=== PATIENT | female | born 1950 | race Caucasian/White ===

== ENCOUNTER 2023-03-20 18:36 | Inpatient (IN) ==
--- NOTE | 2023-03-20 19:10 | Emergency Department Note ---
Impression & Plan Atrial flutter with rapid ventricular response, Palpitations ED Provider Note NAME: KENYA MAN AGE: 73 SEX: F : 1950 ARRIVES VIA: Walk-In INFORMANT: Patient ED PROVIDER(S): Jamie Cardozo DO CHIEF COMPLAINT: palpitations HPI: Patient is a 73-year-old female who presents ER for palpitations. Started at 1 PM. She denies any chest pain or shortness of breath. No nausea vomiting or diarrhea. She notes she does feel very anxious. She had this once or twice before. She is not sure whether she has a history of A-fib or SVT. She follows with Dr. Delacruz from [facility] cardiology. ADDITIONAL HISTORY OBTAINED: Per HPI Chronic Medical/Social Conditions Affecting Care: Per HPI PAST MEDICAL HISTORY:See Below PAST SURGICAL HISTORY:See Below FAMILY HISTORY:See Below SOCIAL HISTORY:See Below HOME MEDICATIONS:See Below ALLERGIES:See Below VITALS:See Below PHYSICAL EXAMINATION: GENERAL: Sitting up in bed, alert, well appearing, well nourished, no distress, non-toxic EYE EXAM: normal conjunctiva. OROPHARYNX: mucous membranes are moist NECK: supple, no nuchal rigidity, no adenopathy, non-tender LUNGS: Clear to auscultation. Normal chest wall mechanics HEART: Tachycardic, S1 normal and S2 normal ABDOMEN: abdomen soft, non-tender, normo-active bowel sounds, no masses, no rebound or guarding. UPPER EXTREMITIES: upper extremities are grossly normal. LOWER EXTREMITIES: No pitting edema. NEURO EXAM: Normal sensorium, cranial nerves II-XII grossly intact, normal speech, no gross weakness of arms, no gross weakness of legs. MEDICAL DECISION MAKING: Patient is a 73-year-old female with a past medical history of SVT/A-fib who presents the ER for palpitations. IV was established and blood work was obtained. Labs show no significant leukocytosis or anemia. BMP with creatinine 1.2. LFTs bilirubin was unremarkable. Troponin was mildly elevated at 17. Lipase was normal. Initial EKG was felt to be atrial flutter. She was given Lopressor x2 and heart rate trended down and eventually converted to a sinus rhythm. Discussed the case with the hospitalist for further evaluation management treatment. External Records Reviewed: External records reviewed from [facility] which show A-fib and SVT Consults/Care Managements Discussions: Per MDM Triage Nursing notes reviewed. Limited review of prior medical records performed Vital Signs: reviewed and remarkable for tachy Differential diagnosis: Cardiac ischemia, aortic dissection, pulmonary embolism, pneumothorax, pneumonia, pericarditis, myocarditis, esophageal rupture, GERD, cholecystitis, pancreatitis, musculoskeletal, as well as other pathologies. ER treatment provided: See below Diagnostics interpreted by me include EKG and cardiac monitoring as listed below: -Cardiac Monitoring: An order was placed for continuous cardiac monitoring. The monitor shows a rate of 151 with Afib rhythm. -ECG: Atrial flutter RVR 158 Normal axis No PVCs QTc 505 EKG #2 Sinus rhythm rate of 75 Normal axis No PVCs QTc 4 3 -Laboratory studies:Interpreted by me as stated above in MDM and shown below. Imaging studies: Xrays: As interpreted by me: Portable AP upright 1 view of the chest shows no focal infiltrate CTs show: none Procedures:none Critical Care: I have personally spent 31 minutes of critical care time in the direct management of this patient. This includes bedside care, interpretation of diagnostic studies, and testing, discussion with consultants, patient, and family members, and other required patient management activities. This 31 minutes is in excess of all separately billable procedures. Past Med/Surg History Social History Smoking Status: Never smoker Feels Safe at Home: Yes Allergies Allergies Allergy/AdvReac Type Severity Reaction Status Date / Time No Known Allergies Allergy Unverified 03/20/23 20:02 Home Meds Home Medications Medication Instructions Recorded Confirmed allopurinol 300 mg tablet 300 mg PO QAM 03/20/23 03/20/23 aspirin 81 mg tablet,delayed 81 mg PO DAILY 03/20/23 03/20/23 release atorvastatin 80 mg tablet 80 mg PO QAM 03/20/23 03/20/23 cholecalciferol (vitamin D3) 50 50 mcg PO DAILY 03/20/23 03/20/23 mcg (2,000 unit) tablet lisinopril 10 mg tablet 10 mg PO QAM 03/20/23 03/20/23 metoprolol succinate 50 mg 25 mg PO BID 03/20/23 03/20/23 tablet,extended release 24 hr Results & Data (ED) Vital Signs Vital Signs - 24 hr 03/20/23 18:44 03/20/23 19:06 03/20/23 19:11 Temperature 36.1 C L Temperature Source Temporal Artery Scan Pulse Rate 150 H 144 H 143 H Pulse Rate from SpO2 Sensor Respiratory Rate 18 18 Respiratory Effort / Characteristics Non-Labored Respiratory Depth Normal Respiratory Pattern Regular Blood Pressure 146/84 H 159/108 H Blood Pressure Mean 104 Pulse Oximetry 99 97 Oxygen Delivery Method Room Air Room Air Sepsis Recent Fever Within 48 Hours No Sepsis New/Unexplained Change in Mental Status N/A Sepsis Action Taken by Nursing No Action Required 03/20/23 19:36 03/20/23 19:06 03/20/23 19:06 Temperature Temperature Source Pulse Rate 129 H 142 H 144 H Pulse Rate from SpO2 Sensor 142 H Respiratory Rate 22 Respiratory Effort / Characteristics Respiratory Depth Respiratory Pattern Blood Pressure 129/92 Blood Pressure Mean Pulse Oximetry 98 Oxygen Delivery Method Sepsis Recent Fever Within 48 Hours Sepsis New/Unexplained Change in Mental Status Sepsis Action Taken by Nursing 03/20/23 19:12 03/20/23 19:12 03/20/23 19:30 Temperature Temperature Source Pulse Rate 144 H Pulse Rate from SpO2 Sensor 143 H Respiratory Rate 22 Respiratory Effort / Characteristics Respiratory Depth Respiratory Pattern Blood Pressure 142/93 H 129/92 Blood Pressure Mean 111 99 Pulse Oximetry 98 Oxygen Delivery Method Sepsis Recent Fever Within 48 Hours Sepsis New/Unexplained Change in Mental Status Sepsis Action Taken by Nursing 03/20/23 19:30 03/20/23 19:48 03/20/23 19:48 Temperature Temperature Source Pulse Rate 130 H 79 74 Pulse Rate from SpO2 Sensor 132 H 77 Respiratory Rate 19 20 19 Respiratory Effort / Characteristics Respiratory Depth Respiratory Pattern Blood Pressure 150/85 H Blood Pressure Mean 115 Pulse Oximetry 99 97 Oxygen Delivery Method Sepsis Recent Fever Within 48 Hours Sepsis New/Unexplained Change in Mental Status Sepsis Action Taken by Nursing 03/20/23 20:00 03/20/23 20:30 03/20/23 22:00 Temperature Temperature Source Pulse Rate 77 67 Pulse Rate from SpO2 Sensor 77 67 Respiratory Rate 24 17 Respiratory Effort / Characteristics Respiratory Depth Respiratory Pattern Blood Pressure 148/79 H 137/79 Blood Pressure Mean 102 98 Pulse Oximetry 98 97 Oxygen Delivery Method Room Air Sepsis Recent Fever Within 48 Hours Sepsis New/Unexplained Change in Mental Status Sepsis Action Taken by Nursing 03/20/23 21:00 03/20/23 21:00 03/20/23 22:09 Temperature Temperature Source Pulse Rate 65 74 Pulse Rate from SpO2 Sensor 65 Respiratory Rate 17 17 Respiratory Effort / Characteristics Respiratory Depth Respiratory Pattern Blood Pressure 140/82 123/90 Blood Pressure Mean 99 101 Pulse Oximetry 99 97 Oxygen Delivery Method Sepsis Recent Fever Within 48 Hours Sepsis New/Unexplained Change in Mental Status Sepsis Action Taken by Nursing 03/20/23 22:30 03/20/23 23:13 Temperature Temperature Source Pulse Rate 65 58 L Pulse Rate from SpO2 Sensor 62 Respiratory Rate 18 Respiratory Effort / Characteristics Respiratory Depth Respiratory Pattern Blood Pressure 124/73 Blood Pressure Mean 90 Pulse Oximetry 97 Oxygen Delivery Method Sepsis Recent Fever Within 48 Hours Sepsis New/Unexplained Change in Mental Status Sepsis Action Taken by Nursing Laboratory Data 03/20/23 19:17 03/20/23 19:17 Lab Results 03/20/23 03/20/23 03/20/23 Range/Units 19:17 19:17 21:39 WBC 9.83 (4.8-10.8) K/ul RBC 4.22 (4.20-5.40) M/uL Hgb 13.5 (12.0-16.0) g/dl Hct 40.8 (37.0-47.0) % MCV 96.7 (80.0-100.0) fL MCH 32.0 (25.0-34.0) pg MCHC 33.1 (32.0-36.0) g/dL RDW Std Deviation 48.3 H (36.4-46.3) fL RDW Coeff of Rizwan 13.6 (11.5-14.5) % Plt Count 226 (130-400) K/uL MPV 11.5 (9.4-12.4) fL Immature Gran % (Auto) 0.2 % Neut % (Auto) 67.9 % Lymph % (Auto) 24.1 % [place] % (Auto) 5.8 % Eos % (Auto) 1.3 % Baso % (Auto) 0.7 % Neut # (Auto) 6.67 H (1.40-6.50) K/uL Lymph # (Auto) 2.37 (1.20-3.40) K/uL [place] # (Auto) 0.57 (0.11-0.59) K/uL Eos # (Auto) 0.13 (0.00-0.50) K/uL Baso # (Auto) 0.07 (0.00-0.20) K/uL Immature Gran # (Auto) 0.02 (0.01-0.20) K/uL Sodium 137 (136-145) mmol/L Potassium 4.1 (3.5-5.1) mmol/L Chloride 105 (98-107) mmol/L Carbon Dioxide 23 (21-32) mmol/L Anion Gap 9 (3-11) BUN 29 H (6-23) mg/dl Creatinine 1.28 H (0.6-1.2) mg/dl Est Cr Clr Drug Dosing 39.5 ml/min Est GFR ( Amer) 47.7 ml/min Est GFR (Non-Af Amer) 41.1 ml/min BUN/Creatinine Ratio 22.7 H (10-20) Glucose 164 H (70-99(Fasting)) mg/dl Calcium 10.0 (8.6-10.3) mg/dl Total Bilirubin 0.5 (0.2-1.0) mg/dl AST 26 (13-39) U/L ALT 27 (7-52) U/L Alkaline Phosphatase 74 (34-104) U/L Troponin I High Sens 16.7 H 29.2 H D (0-14) pg/ml Total Protein 8.4 H (6.0-8.3) gm/dl Albumin 4.7 (3.4-5.0) gm/dl Globulin 3.7 (2.5-4.0) gm/dl Albumin/Globulin Ratio 1.3 (0.9-2) Lipase 28 (11-82) U/L Administered Medications Metoprolol Tartrate (Metoprolol Tartrate 1 Mg/Ml Vial) 5 mg IV Q5M PRN PRN Reason: Tachycardia Stop: 04/19/23 19:04 Last Admin: 03/20/23 19:36 Dose: 5 mg Documented By: Admin: 03/20/23 19:11 Dose: 5 mg Documented By: BS Discontinued Medications Acetaminophen (Acetaminophen 325 Mg Tab) Confirm Administered Dose 650 mg .ROUTE .STK-MED ONE Stop: 03/20/23 22:16 Last Admin: 03/20/23 22:36 Dose: 650 mg Documented By: BS Acetaminophen (Acetaminophen 325 Mg Tab) 650 mg PO NOW STA Stop: 03/20/23 22:24 Last Admin: 03/20/23 22:49 Dose: Not Given Documented By: BS Metoprolol Succinate (Metoprolol Succ 25mg Ext Rel Tab) 25 mg PO NOW STA Stop: 03/20/23 21:24 Last Admin: 03/20/23 22:36 Dose: 25 mg Documented By: BS Imaging Data Radiologist's Impression: Chest X-Ray 03/20/23 18:47 XR chest 1V portable HISTORY: 73 years-old Female Chest pain, nonspecific COMPARISON: None TECHNIQUE: AP view of the chest FINDINGS: Cardiomediastinal and hilar silhouettes are within normal limits. No pneumothorax, pleural effusion, airspace consolidation or pulmonary edema. Bones appear grossly intact. The shoulder rotator cuff calcific tendinosis. IMPRESSION: No acute process. ACT 112: Negative or not required by law. The above report was generated using voice recognition software. It may contain grammatical, syntax or spelling errors. Electronically signed by: Geo Rider M.D. 03/20/2023 7:44 PM Discharge Plan Visit Data Chief Complaint: Tachycardia Stated Complaint: RACING HEART ED Provider: Jamie Cardozo Discharge Problem: Atrial flutter with rapid ventricular response, Palpitations Forms Stand Alone Forms: My [facility] Prescriptions Prescriptions: No Action atorvastatin 80 mg tablet 80 mg PO QAM metoprolol succinate 50 mg tablet extended release 24 hr 25 mg PO BID aspirin 81 mg Tablet,Delayed Release (Dr/Ec) 81 mg PO DAILY lisinopril 10 mg tablet 10 mg PO QAM allopurinol 300 mg tablet 300 mg PO QAM cholecalciferol (vitamin D3) 50 mcg (2,000 unit) Tablet 50 mcg PO DAILY Referrals Referrals: PCP,NO [Physician] -
[2023-03-20] MEDS: METOPROLOL TARTRATE 1 MG/ML VIAL IV PRN ×2 (19:11→19:36)
[2023-03-20 19:39] LABS: Basophils # (auto) 0.07 K/uL (0.00-0.20); Basophils % (auto) 0.7 %; Eosinophils # (auto) 0.13 K/uL (0.00-0.50); Eosinophils % (auto) 1.3 %; Hematocrit (blood only) 40.8 % (37.0-47.0); Hemoglobin 13.5 g/dl (12.0-16.0); Immature Granulocytes # (auto) 0.02 K/uL (0.01-0.20); Immature Granulocytes % (auto) 0.2 %; Lymphocytes # (auto) 2.37 K/uL (1.20-3.40); Lymphocytes % (auto) 24.1 %; Mean Corpuscular Hgb Conc 33.1 g/dL (32.0-36.0); Mean Corpuscular Volume 96.7 fL (80.0-100.0); Mean Platelet Volume 11.5 fL (9.4-12.4); Monocytes # (auto) 0.57 K/uL (0.11-0.59); Monocytes % (auto) 5.8 %; Neutrophils # (auto) 6.67 K/uL (1.40-6.50); Neutrophils % (auto) 67.9 %; Platelet Count 226 K/uL (130-400); RDW Coefficient of Variation 13.6 % (11.5-14.5); RDW Standard Deviation 48.3 fL (36.4-46.3); Red Blood Count 4.22 M/uL (4.20-5.40); White Blood Count 9.83 K/ul (4.8-10.8)
--- NOTE | 2023-03-20 19:46 | XRay Report ---
XR chest 1V portable HISTORY: 73 years-old Female Chest pain, nonspecific COMPARISON: None TECHNIQUE: AP view of the chest FINDINGS: Cardiomediastinal and hilar silhouettes are within normal limits. No pneumothorax, pleural effusion, airspace consolidation or pulmonary edema. Bones appear grossly intact. The shoulder rotator cuff [place] cific tendinosis. IMPRESSION: No acute process. ACT 112: Negative or not required by law. The above report was generated using voice recognition software. It may contain grammatical, syntax o r spelling errors. Electronically signed by: Geo Rider M.D. 03/20/2023 7:44 PM
[2023-03-20 19:49] LABS: Albumin Globulin Ratio 1.3 (0.9-2); Albumin Level 4.7 gm/dl (3.4-5.0); BUN Creatinine Ratio 22.7 (10-20); Bilirubin,Total 0.5 mg/dl (0.2-1.0); Creatinine Clr Calc Pharmacy 39.5 ml/min; Est GFR (African American) 47.7 ml/min; Est GFR (Non-African American) 41.1 ml/min; Globulin 3.7 gm/dl (2.5-4.0); Potassium 4.1 mmol/L (3.5-5.1); Total Protein 8.4 gm/dl (6.0-8.3)
[2023-03-20 19:55] LABS: Troponin I High Sensitivity 16.7 pg/ml (0-14)
[2023-03-20] MEDS ORDERED: METOPROLOL SUCC 50MG EXT REL TAB PO STA (21:15)
[2023-03-20] MEDS ORDERED: METOPROLOL SUCC 25MG EXT REL TAB PO STA (21:23)
--- NOTE | 2023-03-20 21:23 | History & Physical Report ---
Date of Service March 20, 2023 Assessment & Plan (1) SVT (supraventricular tachycardia): Plan: 73-year-old female with past med hiostory significant for type 2 diabetes, idiopathic chronic gout, hyperlipidemia, paroxysmal atrial fibrillation, SVT, hypertension, chronic kidney stage III, vitamin D deficiency, chronic anxiety, presents with palpitations and found to be in SVT. SVT History of SVT Resolved with IV Lopressor Continue home p.o. Vidya Had an episode of A-fib in April 2021 as per cardiology notes We will monitor on telemetry We will consult cardiology in a.m. Mild elevation of troponin Mostly demand ischemia from above We will follow serial cardiac enzymes and echo History of diabetes Not on medications We will follow HbA1c levels and blood sugars Hyperlipidemia On statin. History of gout On allopurinol Hypertension On lisinopril and Toprol We will monitor CKD stage III Presented with creatinine 1.2 seems to be around baseline We will follow labs DVT prophylax SCDs for now Disposition admit to telemetry Full code History of Present Illness Chief Complaint: Palpitations Primary Care Provider: Jose Michael MD 73-year-old female with past med history significant for type 2 diabetes, idiopathic chronic gout, hyperlipidemia, paroxysmal atrial fibrillation, SVT, hypertension, chronic kidney stage III, vitamin D deficiency, chronic anxiety, presents with palpitations and found to be in SVT. Patient states since 2 PM she was having this palpitations and were not getting better . She was also feeling anxious. But no chest pain or shortness of breath noted. No dizziness. No nausea or vomiting. No sweating. Says she has some headache because she did not eat from afternoon. Vision is okay. No runny nose or sore throat. No cough. No fevers. Normal bowel and bladder movements. Currently resting comfortably. Past medical history. As mentioned above Past surgical history. None as per [facility] Social history. . No smoking. No alcohol. No drug use. Family history. Mother had diabetes. Heart disorder. Father had heart disorder. Allergies Allergy/AdvReac Type Severity Reaction Status Date / Time No Known Allergies Allergy Unverified 03/20/23 20:02 Home Medications Medication Instructions Recorded Confirmed Type allopurinol 300 mg tablet 300 mg PO QAM 03/20/23 03/20/23 History aspirin 81 mg tablet,delayed 81 mg PO DAILY 03/20/23 03/20/23 History release atorvastatin 80 mg tablet 80 mg PO QAM 03/20/23 03/20/23 History cholecalciferol (vitamin D3) 50 50 mcg PO DAILY 03/20/23 03/20/23 History mcg (2,000 unit) tablet lisinopril 10 mg tablet 10 mg PO QAM 03/20/23 03/20/23 History metoprolol succinate 50 mg 25 mg PO BID 03/20/23 03/20/23 History tablet,extended release 24 hr Past Med/Surg History Social History Smoking Status: Never smoker Second Hand Exposure: No; Do You Dip or Chew Tobacco: No; Hx Alcohol Use: No Hx Substance Use: No Preferred Language: Gabonese Communication Ability: Effective [place] Man Required: No Beliefs That Will Affect Care: None Current Living Situation: Spouse Other Information That Helps Us Care for You: No Feels Safe at Home: Yes Safety Concerns: Feels Safe At This Time Assistive Devices: Glasses Review of Systems Review of Systems: All systems reviewed & are unremarkable except as noted in HPI & below Physical Exam Physical Exam: General- Not in distress Head- atraumatic Eyes- PERRL. ENT- oropharynx clear Neck- supple, no JVD. Lungs- clear to auscultation, no wheezing or crackles. Heart- regular rhythm; no murmur, no gallop. Abdomen- normal bowel sounds, soft, nontender, no distension. Extremities- no pretibial edema, no erythema seen. Neuro- alert, oriented x 3; PERRL, no facial palsy; no dysarthria; moves extremities. Skin- warm & dry Results & Data Results & Data Vital Signs (Past 12 Hours) Vital Signs Temp Pulse Resp BP Pulse Ox O2 Del Method 03/20/23 20:30 67 17 137/79 97 03/20/23 20:00 77 24 148/79 H 98 03/20/23 19:48 74 19 150/85 H 03/20/23 19:48 79 20 97 03/20/23 19:30 130 H 19 99 03/20/23 19:30 129/92 03/20/23 19:12 142/93 H 03/20/23 19:12 144 H 22 98 03/20/23 19:06 144 H 22 98 03/20/23 19:06 142 H 03/20/23 19:36 129 H 129/92 03/20/23 19:11 143 H 159/108 H 03/20/23 19:06 144 H 18 97 Room Air 03/20/23 18:44 36.1 C L 150 H 18 146/84 H 99 Room Air Diagnostic Findings Laboratory Results WBC 9.83 K/ul (4.8-10.8) 03/20/23 19:17 RBC 4.22 M/uL (4.20-5.40) 03/20/23 19:17 Hgb 13.5 g/dl (12.0-16.0) 03/20/23 19:17 Hct 40.8 % (37.0-47.0) 03/20/23 19:17 MCV 96.7 fL (80.0-100.0) 03/20/23 19:17 MCH 32.0 pg (25.0-34.0) 03/20/23 19:17 MCHC 33.1 g/dL (32.0-36.0) 03/20/23 19:17 RDW Std Deviation 48.3 fL (36.4-46.3) H 03/20/23 19:17 RDW Coeff of Rizwan 13.6 % (11.5-14.5) 03/20/23 19:17 Plt Count 226 K/uL (130-400) 03/20/23 19:17 MPV 11.5 fL (9.4-12.4) 03/20/23 19:17 Immature Gran % (Auto) 0.2 % 03/20/23 19:17 Neut % (Auto) 67.9 % 03/20/23 19:17 Lymph % (Auto) 24.1 % 03/20/23 19:17 [place] % (Auto) 5.8 % 03/20/23 19:17 Eos % (Auto) 1.3 % 03/20/23 19:17 Baso % (Auto) 0.7 % 03/20/23 19:17 Neut # (Auto) 6.67 K/uL (1.40-6.50) H 03/20/23 19:17 Lymph # (Auto) 2.37 K/uL (1.20-3.40) 03/20/23 19:17 [place] # (Auto) 0.57 K/uL (0.11-0.59) 03/20/23 19:17 Eos # (Auto) 0.13 K/uL (0.00-0.50) 03/20/23 19:17 Baso # (Auto) 0.07 K/uL (0.00-0.20) 03/20/23 19:17 Immature Gran # (Auto) 0.02 K/uL (0.01-0.20) 03/20/23 19:17 Sodium 137 mmol/L (136-145) 03/20/23 19:17 Potassium 4.1 mmol/L (3.5-5.1) 03/20/23 19:17 Chloride 105 mmol/L (98-107) 03/20/23 19:17 Carbon Dioxide 23 mmol/L (21-32) 03/20/23 19:17 Anion Gap 9 (3-11) 03/20/23 19:17 BUN 29 mg/dl (6-23) H 03/20/23 19:17 Creatinine 1.28 mg/dl (0.6-1.2) H 03/20/23 19:17 Est Cr Clr Drug Dosing 39.5 ml/min 03/20/23 19:17 Est GFR ( Amer) 47.7 ml/min 03/20/23 19:17 Est GFR (Non-Af Amer) 41.1 ml/min 03/20/23 19:17 BUN/Creatinine Ratio 22.7 (10-20) H 03/20/23 19:17 Glucose 164 mg/dl (70-99(Fasting)) H 03/20/23 19:17 Calcium 10.0 mg/dl (8.6-10.3) 03/20/23 19:17 Total Bilirubin 0.5 mg/dl (0.2-1.0) 03/20/23 19:17 AST 26 U/L (13-39) 03/20/23 19:17 ALT 27 U/L (7-52) 03/20/23 19:17 Alkaline Phosphatase 74 U/L (34-104) 03/20/23 19:17 Troponin I High Sens 16.7 pg/ml (0-14) H 03/20/23 19:17 Total Protein 8.4 gm/dl (6.0-8.3) H 03/20/23 19:17 Albumin 4.7 gm/dl (3.4-5.0) 03/20/23 19:17 Globulin 3.7 gm/dl (2.5-4.0) 03/20/23 19:17 Albumin/Globulin Ratio 1.3 (0.9-2) 03/20/23 19:17 Lipase 28 U/L (11-82) 03/20/23 19:17 Impressions Chest X-Ray 03/20/23 18:47 XR chest 1V portable HISTORY: 73 years-old Female Chest pain, nonspecific COMPARISON: None TECHNIQUE: AP view of the chest FINDINGS: Cardiomediastinal and hilar silhouettes are within normal limits. No pneumothorax, pleural effusion, airspace consolidation or pulmonary edema. Bones appear grossly intact. The shoulder rotator cuff calcific tendinosis. IMPRESSION: No acute process. ACT 112: Negative or not required by law. The above report was generated using voice recognition software. It may contain grammatical, syntax or spelling errors. Electronically signed by: Geo Rider M.D. 03/20/2023 7:44 PM ECG Additional Comments: ECG. SVT rate of 158. Nonspecific ST abnormalities. Code Status & VTE Plan VTE Prophylaxis Plan VTE Prophylaxis will be ordered: Yes
[2023-03-20] MEDS ORDERED: ACETAMINOPHEN 325 MG TAB ONE (22:15)
[2023-03-20] MEDS ORDERED: ACETAMINOPHEN 325 MG TAB PO STA (22:23)
[2023-03-21] MEDS ORDERED: CARBOHYDRATES FOR HYPOGLYCEMIA PO PRN (00:14)
[2023-03-21] MEDS ORDERED: GLUCAGON FOR INJ 1 MG VIAL SQ PRN (00:14)
[2023-03-21] MEDS ORDERED: NITROGLYCERIN SL 0.4 MG/TAB TAB SL PRN (00:14)
[2023-03-21] MEDS ORDERED: SODIUM CHLORIDE 0.9% 1,000 ML IV SCH (00:14)
[2023-03-21] MEDS ORDERED: GLUCOSE 10 TAB/TUBE PO PRN (00:14)
[2023-03-21] MEDS ORDERED: POLYETHYLENE (MIRALAX) 17 GM PACK PO PRN (00:14)
[2023-03-21] MEDS ORDERED: METOPROLOL TARTRATE 1 MG/ML VIAL IV PRN (00:14)
[2023-03-21] MEDS ORDERED: ACETAMINOPHEN 325 MG TAB PO PRN (00:14)
[2023-03-21] MEDS ORDERED: DEXTROSE 50% 50 ML SYRINGE IV PRN (00:14)
[2023-03-21] MEDS ORDERED: GLUCOSE 40% GEL 15 GM TUBE PO PRN (00:14)
[2023-03-21] MEDS ORDERED: INSULIN ASPART PER UNIT CHARGE SC SCH (06:00)
[2023-03-21 06:26] LABS: Basophils # (auto) 0.07 K/uL (0.00-0.20); Eosinophils # (auto) 0.38 K/uL (0.00-0.50); Eosinophils % (auto) 5.5 %; Hemoglobin 11.5 g/dl (12.0-16.0); Immature Granulocytes # (auto) 0.02 K/uL (0.01-0.20); Immature Granulocytes % (auto) 0.3 %; Lymphocytes # (auto) 2.55 K/uL (1.20-3.40); Lymphocytes % (auto) 36.9 %; Mean Corpuscular Hemoglobin 31.9 pg (25.0-34.0); Mean Corpuscular Hgb Conc 32.9 g/dL (32.0-36.0); Mean Corpuscular Volume 97.2 fL (80.0-100.0); Mean Platelet Volume 11.4 fL (9.4-12.4); Monocytes # (auto) 0.69 K/uL (0.11-0.59); Neutrophils % (auto) 46.3 %; Platelet Count 200 K/uL (130-400); RDW Coefficient of Variation 13.5 % (11.5-14.5); White Blood Count 6.91 K/ul (4.8-10.8)
[2023-03-21 06:45] LABS: BUN Creatinine Ratio 26.6 (10-20); Calcium 8.8 mg/dl (8.6-10.3); Creatinine Clr Calc Pharmacy 53.9 ml/min; Est GFR (African American) 69.3 ml/min; Est GFR (Non-African American) 59.8 ml/min; Magnesium 2.1 mg/dl (1.7-2.4); Potassium 3.8 mmol/L (3.5-5.1)
[2023-03-21 06:54] LABS: Troponin I High Sensitivity 44.7 pg/ml (0-14)
--- NOTE | 2023-03-21 08:07 | Cardiology Consultation ---
Date of Consultation March 21, 2023 Assessment & Plan (1) Palpitations: (2) Atrial flutter with rapid ventricular response: Plan IMPRESSION: 73 year old female who presented to [facility] ED due to sustained palpitations. Found to be in Atrial flutter with RVR (rates in the 160s)-- symptoms resolved with IV Lopressor. Metoprolol succinate increased to 50 mg BID (from 25 mg BID) HS trops mildly elevated. PLAN: -Agree with increase in beta shan dosage-- continue metoprolol succinate 50 mg twice daily. -Encouraged patient to ambulate in the hallway this morning. -[id number] 4 points (age 65-74, female, Hypertension, diabetes)-- Risk of stroke in relation to aflutter discussed in detail as well as bleeding risk with anticoagulation, patient agreeable to start Eliquis 5 mg BID. -Plan on outpatient ZIO monitor to assess PAF/Flutter burden and average heart rates. 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 -HS tropinin mildly elevated, likely due to demand/tachycardic rates. Low likelihood for ACS, Consider outpatient nuclear stress test to rule out ischemic cause. Continue aspirin and statin. -Blood pressures well controlled- continue Lisinopril 10 mg daily Case discussed with Dr. Dee. Will plan on follow up in our outpatient clinic in 4-6 weeks. Will have ZIO placed at discharge. Supervising Physician Co-Signing Physician Notes 73-year-old female admitted with recurrent palpitations. ECG demonstrating atrial flutter with transient atrial fibrillation overnight. Resting comfortably. Converted to sinus rhythm. Denies chest pain or heaviness. Mildly elevated high-sensitivity troponin. Echocardiogram without regional wall motion abnormality. PE: VSS. General: NAD, awake alert orient x3. Heart: Regular rhythm, normal S1-S2. No murmur. Lungs: Clear bilateral, no rales, rhonchi, wheeze. Extremities: No edema. A/P: Agree with above WARDROBE ASSISTANT history, physical exam, assessment and plan. Titrate metoprolol to 50 mg twice daily. Patient agreeable to oral anticoagulation. Eliquis 5 mg twice daily ordered. Outpatient ZIO monitor to assess efficacy of higher dose of beta-shan ordered. Outpatient cardiology follow-up in 4 to 6 weeks. Recommend ischemic evaluation in the outpatient setting due to mildly elevated high-sensitivity troponin. No further inpatient cardiac testing or intervention. History of Present Illness Reason for Consultation: Palpitations Atrial flutter Requesting Physician: Cornelia hospitalben Attending Physician: Gianfranco Arredondo MD History of Present Illness 73-year-old female who initially presented to [facility] emergency department 03/20/2023 due to sustained palpitations. Initially felt to be in SVT. Given a dose of IV Lopressor with improvement in symptoms. EKG on 03/20/2023 at 18:58 revealed atrial flutter with rates in the 160s. Labs: Mild anemia with a hemoglobin of 11.5. Renal function stable. Potassium and magnesium within goal. High-sensitivity troponins mildly elevated (16.7>>29.2>>44.7) Echo: PENDING* Patient normally maintained on metoprolol succinate 25 mg twice daily-- incre ased this admission to 50 mg twice daily. Telemetry: NSR/SB 50-60s. AFIB ~1:04 am (03/21), AFlutter, 160s ~1700-1748pm (03/20) Upon entrance into the room patient resting in bed. , [place], at bedside. No return of palpitations/"fluttering" heart beats since yesterday evening. Denies any recent chest pain or shortness of breath. No lightheadedness or dizziness. No syncope. No orthopnea or PND. No lower extremity edema. No history of GIB or increased bleeding. Admits to significant anxiety at times. No recent change in medications. Eager for discharge. Of note, patient has [facility] insurance as well as [employer] for Rx assistance. Primary outpatient manager activities: Dr. Cespedes and Markell Mittal PA-C Past medical history: 1. Palpitations 1. Prior palpitations documented to occur in association with sinus rhythm, sensed atrial ectopy, and supraventricular tachycardia/atrial tachycardia -- outpatient metoprolol dose 25 mg BID 2. Paroxysmal atrial fibrillation on April 29, 2021, converting to sinus rhythm following IV diltiazem administration. Event occurring in association with recent musculoskeletal strain, after taking baclofen 1. [id number] 4 points (age 65-74, female, Hypertension, diabetes)-- not currently on AC 3. Suspected sleep apnea- declined eval in the past 4. Hypertension 5. Dyslipidemia 6. Family history of coronary heart disease in both of her parents. 7. Stage 3 chronic kidney disease. Followed by Nephrology. 8. Anxiety 9. Idiopathic chronic gout, follows with PCP 10. Grade II diastolic dysfunction Allergies Allergy/AdvReac Type Severity Reaction Status Date / Time No Known Allergies Allergy Unverified 03/20/23 20:02 Home Medications Medication Instructions Recorded Confirmed Type allopurinol 300 mg tablet 300 mg PO QAM 03/20/23 03/20/23 History aspirin 81 mg tablet,delayed 81 mg PO DAILY 03/20/23 03/20/23 History release atorvastatin 80 mg tablet 80 mg PO QAM 03/20/23 03/20/23 History cholecalciferol (vitamin D3) 50 50 mcg PO DAILY 03/20/23 03/20/23 History mcg (2,000 unit) tablet apixaban 5 mg tablet (Eliquis) 5 mg PO BID #60 tabs 03/21/23 Rx lisinopril 5 mg tablet (Zestril) 5 mg PO QAM #30 tabs 03/21/23 Rx metoprolol succinate 50 mg 50 mg PO BID #60 tabs 03/21/23 Rx tablet,extended release 24 hr Patient History Social History Smoking Status: Never smoker Second Hand Exposure: No; Do You Dip or Chew Tobacco: No; Hx Alcohol Use: No Hx Substance Use: No Preferred Language: Tristanian Communication Ability: Effective Analytics Director Required: No Beliefs That Will Affect Care: None Current Living Situation: Spouse Other Information That Helps Us Care for You: No Feels Safe at Home: Yes Safety Concerns: Feels Safe At This Time Assistive Devices: Glasses Review of Systems Review of Systems: All systems reviewed & are unremarkable except as noted in HPI & below Physical Exam Constitutional: WD/WN, vitals as above no acute distress Neck: normal visual inspection and trachea midline Respiratory: normal respiratory effort, lungs clear to auscultation Cardiovascular: RRR, no murmur, no edema Heart Sounds: normal S1 and normal S2; no murmur Vessels: no JVD Extremities: no edema Gastrointestinal (Abdomen): normal bowel sounds, soft, nontender, no hepatosplenomegaly Skin: no rashes, warm and dry Psychiatric: A+Ox3, euthymic affect Results & Data Vital Signs (Past 12 Hours) Vital Signs Temp Pulse Pulse Resp BP BP Pulse Ox 03/21/23 07:14 36.4 C L 57 L 20 137/76 97 03/21/23 03:26 36.5 C 82 16 151/69 H 91 03/21/23 02:08 54 L 03/21/23 00:55 130/79 03/21/23 00:15 36.6 C 76 18 182/97 H 98 03/20/23 23:13 58 L 03/20/23 22:30 65 18 124/73 97 03/20/23 22:09 74 17 123/90 97 03/20/23 21:00 65 17 99 03/20/23 21:00 140/82 03/20/23 22:00 03/20/23 20:30 67 17 137/79 97 O2 Del Method 03/21/23 07:14 Room Air 03/21/23 03:26 Room Air 03/21/23 02:08 03/21/23 00:55 03/21/23 00:15 Room Air 03/20/23 23:13 03/20/23 22:30 03/20/23 22:09 03/20/23 21:00 03/20/23 21:00 03/20/23 22:00 Room Air 03/20/23 20:30 Laboratory Results Cardiac Enzymes 03/20/23 03/20/23 03/21/23 Range/Units 19:17 21:39 05:24 AST 26 (13-39) U/L Troponin I High Sens 16.7 H 29.2 H D 44.7 H D (0-14) pg/ml CBC 03/20/23 03/21/23 Range/Units 19:17 05:24 WBC 9.83 6.91 (4.8-10.8) K/ul RBC 4.22 3.60 L (4.20-5.40) M/uL Hgb 13.5 11.5 L (12.0-16.0) g/dl Hct 40.8 35.0 L (37.0-47.0) % Plt Count 226 200 (130-400) K/uL Neut # (Auto) 6.67 H 3.20 (1.40-6.50) K/uL Lymph # (Auto) 2.37 2.55 (1.20-3.40) K/uL [place] # (Auto) 0.57 0.69 H (0.11-0.59) K/uL Eos # (Auto) 0.13 0.38 (0.00-0.50) K/uL Baso # (Auto) 0.07 0.07 (0.00-0.20) K/uL Comprehensive Metabolic Panel 03/20/23 03/21/23 Range/Units 19:17 05:24 Sodium 137 140 (136-145) mmol/L Potassium 4.1 3.8 (3.5-5.1) mmol/L Chloride 105 108 H (98-107) mmol/L Carbon Dioxide 23 26 (21-32) mmol/L BUN 29 H 25 H (6-23) mg/dl Creatinine 1.28 H 0.94 D (0.6-1.2) mg/dl Glucose 164 H 108 H (70-99(Fasting)) mg/dl Calcium 10.0 8.8 (8.6-10.3) mg/dl AST 26 (13-39) U/L ALT 27 (7-52) U/L Alkaline Phosphatase 74 (34-104) U/L Total Protein 8.4 H (6.0-8.3) gm/dl Albumin 4.7 (3.4-5.0) gm/dl Intake and Output 03/20/23 03/21/23 03/21/23 22:59 06:59 14:59 Other: Other Intake Source Patient is NPO # Unmeasured Voids 2 Weight 80.2 kg 80.5 kg Weight Measurement Method Chair Scale Built in [facility] Diagnostic Findings Echo outpatient 05/2022 Interpretation Summary The examination is adequate to evaluate the referral indication. The LV wall thickness is normal. The left ventricular wall motion is normal. The qualitative LV ejection fraction is 55-59% (normal). The left atrium is normal sized. The left ventricular diastolic function is moderately abnormal (grade II). There is no significant valvular disease. Outpatient ZIO 06/01/2022 Patient had a min HR of 38 bpm, max HR of 203 bpm, and avg HR of 55 bpm. Predominant underlying rhythm was Sinus Rhythm. 323 Supraventricular Tachycardia runs occurred, the run with the fastest interval lasting 7 beats with a max rate of 203 bpm, the longest lasting 1 min 17 secs with an avg rate of 91 bpm. Supraventricular Tachycardia was detected within +/- 45 seconds of symptomatic patient event(s). Some episodes of Supraventricular Tachycardia may be possible Atrial Tachycardia with variable block. Isolated SVEs were occasional (1.3%, 25650), SVE Couplets were rare (<1.0%, 1024), and SVE Triplets were rare (<1.0%, 303). Isolated VEs were rare (<1.0%), VE Couplets were rare (<1.0%), and no VE Triplets were present. Ventricular Trigeminy was present. -33 patient triggered events and 4 diary events were submitted for review. The patient triggered events correlated with sinus rhythm with premature atrial contractions as well as brief episodes of supraventricular tachycardia. The longest episode of supraventricular tachycardia which was observed on 06/09/2022 at 7:24 p.m. was 1 minute and 17 seconds in duration, and was not associated with any patient symptom markers. -The premature atrial contractions were of moderate frequency, accounting for 1.3% of the total QRS complexes.
[2023-03-21 08:21] LABS: Estimated Average Glucose 137 mg/dl; Hemoglobin A1C 6.4 % (4.5-5.6)
[2023-03-21] MEDS ORDERED: lisinopril 10 MG TAB PO SCH (09:00)
[2023-03-21] MEDS ORDERED: ATORVASTATIN 40 MG TAB PO SCH (09:00)
[2023-03-21] MEDS ORDERED: allopurinoL 300 MG TAB PO SCH (09:00)
[2023-03-21] MEDS ORDERED: ASPIRIN 81 MG ECTAB PO SCH (09:00)
[2023-03-21] MEDS ORDERED: METOPROLOL SUCC 50MG EXT REL TAB PO SCH (09:00)
[2023-03-21] MEDS ORDERED: CHOLECALCIFEROL 1,000 UNITS 25 MCG TAB PO SCH (09:00)
[2023-03-21] MEDS ORDERED: APIXABAN 5 MG TABLET PO SCH (10:00)
--- NOTE | 2023-03-21 13:00 | Discharge Summary ---
Date of Service March 21, 2023 Admission HPI Per Admitting Provider 73-year-old female with past med history significant for type 2 diabetes, idiopathic chronic gout, hyperlipidemia, paroxysmal atrial fibrillation, SVT, hypertension, chronic kidney stage III, vitamin D deficiency, chronic anxiety, presents with palpitations and found to be in SVT. Patient states since 2 PM she was having this palpitations and were not getting better . She was also feeling anxious. But no chest pain or shortness of breath noted. No dizziness. No nausea or vomiting. No sweating. Says she has some headache because she did not eat from afternoon. Vision is okay. No runny nose or sore throat. No cough. No fevers. Normal bowel and bladder movements. Currently resting comfortably. Past medical history. As mentioned above Past surgical history. None as per [facility] Social history. . No smoking. No alcohol. No drug use. Family history. Mother had diabetes. Heart disorder. Father had heart disorder. Admission Exam Per Admitting Provider General- Not in distress Head- atraumatic Eyes- PERRL. ENT- oropharynx clear Neck- supple, no JVD. Lungs- clear to auscultation, no wheezing or crackles. Heart- regular rhythm; no murmur, no gallop. Abdomen- normal bowel sounds, soft, nontender, no distension. Extremities- no pretibial edema, no erythema seen. Neuro- alert, oriented x 3; PERRL, no facial palsy; no dysarthria; moves extremities. Skin- warm & dry Principal Diagnosis Atrial flutter with transient atrial fibrillation Discharge Exam Constitutional: WD/WN, vitals as above, NAD, sitting up in bed, pleasant, conversing easily Respiratory: normal respiratory effort, lungs clear to auscultation, no wheeze, rales, rhonchi. Normal insp/exp effort, no accessory muscle use Cardiovascular: RRR, no murmur, no edema Vessels: no JVD or carotid bruit Chest: normal inspection of chest Abdomen: normal bowel sounds, soft, nontender, no hepatosplenomegaly Musculoskeletal: no cyanosis or clubbing, extremities motor strength 5/5 Skin: no rashes, warm and dry normal turgor Neurologic: PERRL, EOMI, accommodation nl, no face palsy, no dysarthria CN's II- XI intact bilaterally and moves all extremities Psychiatric: A+Ox3, euthymic affect Discharge Data Allergies Allergy/AdvReac Type Severity Reaction Status Date / Time No Known Allergies Allergy Unverified 03/20/23 20:02 Consultations 03/20/23 23:10 ED Decision to Admit Stat 03/21/23 08:00 Consult Cardiology Routine Hospital Course (1) Atrial flutter with rapid ventricular response: (2) Palpitations: Plan 73-year-old female with past med hiostory significant for type 2 diabetes, idiopathic chronic gout, hyperlipidemia, paroxysmal atrial fibrillation, SVT, hypertension, chronic kidney stage III, vitamin D deficiency, chronic anxiety, presents with palpitations. EKG on admission showed possible a flutter; 2 is to 1 conduction Telemetry overnight showed transient atrial fibrillation. She converted to sinus rhythm with IV Lopressor. Cardiology was consulted and echocardiogram was obtained. Echocardiogram showed EF of 60 to 65% with mildly dilated left atrium and grade 2 diastolic dysfunction. Patient's metoprolol dose was increased to 50 mg twice a day. She was also started on Eliquis for anticoagulation. Her lisinopril dose was decreased to 5 mg once a day. Please note the above document was generated using voice recognition software. It may contain grammatical, syntax or spelling errors. Any formal questions or concerns about the content, text or information contained within the body of this dictation should be directly addressed to the provider for clarification Total Time Total Time Spent Total Time Spent (In Minutes): 45 Total Time Includes: Examination of the Patient, Discharge Planning, Medication Reconciliation, Communication With Other Providers and Other Discharge Plan Discharge Items Patient Disposition: Home - Self-Care Reason For Visit: SVT Discharge Diagnosis: Atrial flutter with RVR Activity: Resume your previous activity Non-emergency contact: Primary Care Provider Call non-emergency contact if: you have any medication questions and your sympt oms worsen Follow-up/Referrals: Jose Michael MD [Primary Care Provider] - (Date & Time 03/24/2023 10:40 AM Provider Jose Michael MD Department Family Medicine [facility] ) Diet: Regular Addtl Attending Provider Instructions: You were admitted to the hospital due to utricular heart rhythm called atrial flutter. Following medication changes are recommended by the cardiology: 1) Take metoprolol 50 mg twice a day. A new prescription has been sent to the pharmacy 2) Take Eliquis (blood thinner) 5 mg twice a day 3) Dose of lisinopril is decreased to 5 mg once a day. A new prescription is sent to the pharmacy You will receive a call from cardiology regarding placing a cat scan technologist (Zio patch). Appointment will also be set up with your primary care doctor Pending Studies at Discharge: No Stand-Alone Forms: My [facility], Smoking Cessation Medications and DC Order Prescriptions: New Eliquis 5 mg Tablet 5 mg PO BID Qty: 60 0RF metoprolol succinate 50 mg Tablet Extended Release 24 Hr 50 mg PO BID Qty: 60 0RF lisinopril [Zestril] 5 mg Tablet 5 mg PO QAM Qty: 30 0RF Continued atorvastatin 80 mg tablet 80 mg PO QAM aspirin 81 mg Tablet,Delayed Release (Dr/Ec) 81 mg PO DAILY allopurinol 300 mg tablet 300 mg PO QAM cholecalciferol (vitamin D3) 50 mcg (2,000 unit) Tablet 50 mcg PO DAILY Discontinued metoprolol succinate 50 mg tablet extended release 24 hr 25 mg PO BID lisinopril 10 mg tablet 10 mg PO QAM Discharge Orders: Discharge Order (Routine); Ordered 03/21/23 Ordered By: Gianfranco Ralph/Other Patient Handouts: Apixaban Oral Tablet, Managing Type 2 Diabetes, ED Atrial Flutter, ED Palpitations Admission Data Admit Date/Time: 03/20/23 21:15 Attending Provider: Gianfranco Arredondo Admit Provider: Lele Adame Primary Care Provider: Jose Michael Other Providers: Lele Adame ; Jim Dee Other Interventions: Discharge Summary Assessment (RN) Last Done: 03/21/23 10:39
--- NOTE | 2023-03-21 13:10 | Electrocardiogram Report ---
Test Reason : Blood Pressure : / mmHG Vent. Rate : 158 BPM Atrial Rate : 000 BPM P-R Int : 000 ms QRS Dur : 068 ms QT Int : 312 ms P-R-T Axes : 000 017 219 degrees QTc Int : 505 ms Supraventricular tachycardia Marked ST abnormality, possible inferior subendocardial injury Abnormal ECG No previous ECGs available Confirmed by Keshawn Marcial ([id number]) on 03/21/2023 1:09:35 PM Referred By: REFERRED SELF Confirmed By:Arben Marcial
--- NOTE | 2023-03-21 13:12 | Electrocardiogram Report ---
Test Reason : Blood Pressure : / mmHG Vent. Rate : 075 BPM Atrial Rate : 075 BPM P-R Int : 160 ms QRS Dur : 072 ms QT Int : 392 ms P-R-T Axes : 066 002 012 degrees QTc Int : 437 ms Normal sinus rhythm Normal ECG When compared with ECG of 20-MAR-2023 18:58, (unconfirmed) Vent. rate has decreased BY 83 BPM Sinus rhythm has replaced SVT Confirmed by Keshawn Marcial ([id number]) on 03/21/2023 1:12:07 PM Referred By: REFERRED SELF Confirmed By:Arben Marcial
--- NOTE | 2023-03-21 13:20 | Electrocardiogram Report ---
Test Reason : Blood Pressure : / mmHG Vent. Rate : 065 BPM Atrial Rate : 065 BPM P-R Int : 162 ms QRS Dur : 082 ms QT Int : 442 ms P-R-T Axes : 076 013 030 degrees QTc Int : 459 ms Normal sinus rhythm T wave abnormality, consider anterior ischemia Abnormal ECG When compared with ECG of 20-MAR-2023 19:58, (unconfirmed) No significant change was found Confirmed by Keshawn Marcial ([id number]) on 03/21/2023 1:20:35 PM Referred By: REFERRED SELF Confirmed By:Arben Marcial
[2023-03-22] MEDS ORDERED: lisinopril 5 MG TAB PO SCH (09:00)
== END 2023-03-21 12:06 | disposition home or self-care (01) | DRG 309 ==
LOC: ED 18:36 → 2E 21:15

== ENCOUNTER 2023-04-23 10:01 | Inpatient (IN) ==
--- OUTSIDE RECORDS SUMMARY | 2023-04-23 10:09 | External Medical Summary | Summary of Care ---
Author Name Unknown Organization [facility] Address [address] [place] [address] Phone [phone] Care Team Providers Care Memorial Designer Name Role Phone Jose Michael MD Primary Care Provider [phone] Encounter Details Date Type Department Care Team (Late st Contact Info) Description 03/28/2023 11:00 AM EST Nurse Only Ancillary [address] [place] [phone] [place], Nurse [address] [place] [address] Allergies Active Allergy Reactions Criticality Noted Date Comments Baclofen Tachycardia 05/05/2021 AFib documented as of this encounter (statuses as of 03/29/2023) Medications Medication Sig Dispensed Refills Start Date End Date Status GORGE EVANS 33G MISCIndications:DM type 2, goal HbA1c < 7% ([facility]) e11.9 100 Each 5 11/03/2017 Active aspirin enteric coated 81 MG TBECIndications:DM type 2, goal HbA1c < 7% ([facility]),Benign hypertension with CKD (chronic kidney disease) stage III ([facility]),Type 2 DM with CKD stage 3 and hypertension (HCC) Take 1 Tab by mouth daily. 100 Tab 3 02/27/2018 Active Cholecalciferol (VITAMIN D3) 2000 units CapsuleIndications:Vi tamin D deficiency Take 1 Capsule by mouth in the morning. 30 Cap 5 04/12/2018 Active Atorvastatin Calcium 80 MG Oral Tablet (Lipitor) Take 1 Tablet by mouth in the morning. 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 DX: E11.9 100 Strip 11 03/19/2023 Active Lisinopril 10 MG Oral Tablet (Prinivil)Indications :Benign hypertension with CKD (chronic kidney disease) stage III ([facility]),Chronic kidney disease, stage 3a (HCC),Type 2 diabetes mellitus with hemoglobin A1c goal of less than 7.0% ([facility]),Primary hypertension One daily 90 Tablet 1 03/24/2023 Active Metoprolol Succinate ER 50 MG Oral Tablet Extended Release 24 Hour (toPROL XL)Indications:SVT (supraventricular tachycardia) Take 1 Tablet by mouth in the morning and 1 Tablet before bedtime. 180 Tablet 1 03/24/2023 Active Apixaban 5 MG Oral Tablet (Eliquis)Indications: Paroxysmal atrial fibrillation (HCC) Take 1 Tablet by mouth in the morning and 1 Tablet before bedtime. 180 Tablet 1 03/24/2023 Active documented as of this encounter (statuses as of 03/29/2023) Active Problems Problem Noted Date Diagnosed Date Benign hypertension with CKD (chronic kidney disease) stage III 09/13/2022 SVT (supraventricular tachycardia) 06/17/2021 Chronic anxiety 05/21/2021 Paroxysmal atrial fibrillation 05/05/2021 Type 2 diabetes mellitus wit h hemoglobin A1c goal of less than 7.0% 05/05/2021 Chronic kidney disease, stage 3a 11/04/2020 Overview: Per CKD protocol BMI 30.0-30.9,adult 09/18/2018 Overview: 172 Vitamin D deficiency 04/12/2018 Benign hypertension with stage 3a chronic kidney disease 10/24/2017 Overview: Per CKD protocol Idiopathic chronic gout of left foot without top hus 10/20/2017 Overview: uric acid 11.2 ADVANCE DIRECTIVE INFORMATION 06/28/2005 Overview: No, Advance Directive brochure offered , patient declined. Primary hypertension Hyperlipidemia LDL goal <100 documented as of this encounter (statuses as of 03/29/2023) Resolved Problems Problem Noted Date Diagnosed Date Resolved Date Type 2 diabetes mellitus wit h stage 3a chronic kidney disease, without long-term current use of insulin 04/20/2022 09/13/2022 Type 2 diabetes mellitus wit h stage 3a chronic kidney disease 09/30/2020 05/05/2021 Overview: Per CKD protocol CKD stage 3 due to type 2 diabetes mellitus 11/21/2017 10/02/2020 Overview: Per CKD protocol DM type 2, goal HbA1c < 7% 10/20/2017 1 07/06/2020 Overview: glucose 297 Cutaneous skin tags 03/05/2015 01/04/20 18 Ganglion 11/11/2003 04/14/2018 Other atopic dermatitis 11/11/200302/20 Overview: ICD-10 update of inactive term Other allergic rhinitis 11/11/200302/20 Overview: ICD-10 update of inactive term BENIGN HYPERTENSION 03/05/20 15 Herpes simplex virus infection 02/27/2018 PURE HYPERCHOLESTEROLEM 02/20 Tachycardia 02/27/2018 Hyperlipidemia with target LDL less than 130 10/28/2017 Overview: ICD-10 update of inactive term Benign hypertension with CKD (chronic kidney disease) stage III 10/02/2020 Overview: Per CKD protocol Type 2 DM with CKD stage 3 and hypertension 03/13/2018 Gout of left ankle 8 documented as of this encounter (statuses as of 03/29/2023) Immunizations Name Administration Dates Next Due COVID-19 mRNA, LNP-s, No Pre serve, 2-Dose Series (Moderna) 08/02/2020,06/22/2020 COVID-19, MRNA-LNP, 23-24, P F, 30 MCG/0.3 mL, 12 YRS AND ABOVE, IM (PFIZER-Comirnaty) 2023 COVID-19, mRNA, LNP-s, PF, B ooster, 100mcg/0.5mg (Moderna) 09/29/2021,04/13/2021 Covid-19, Mrna, Lnp-s, Pf, B ivalent, 30 Mcg, IM, 12 yrs and above (Pfizer) 04/27/2022 Pneumococcal Conjugate Vacc, 13 Valent (Prevnar) 11/15/2018 Pneumococcal Polysaccharide PPV23 (Pneumovax) 11/21/2019 SEASONAL INFLUENZA, PF, 6 M & Above, IM , (FLULAVAL or FLUZONE) 03/13/2018 Season Influenza, Quad, PF, Adjuvanted, 65+ Yrs, IM (FLUAD) 2023,2021,02/02/2020 Seasonal Influenza, Quadriva lent Hd, 65+ Yrs 02/26/2022,02/02/2020 Seasonal Influenza, Quadriva lent, No Preserve, IM 03/05/2015 Seasonal Influenza, Split, I IV3, No Preserve, Inj 03/07/2010 Seasonal Influenza, Split, I IV3, With Preserve, Inj 02/21/2016 Seasonal Influenza, Trivalen t, Adjuvanted, 65+ yrs 01/23/2019 Seasonal Influenza, Trivalen t, High Dose, No Preserve, IM 2017 Varicella Zoster Vaccine (Adult) 09/15/2016 Zoster Vaccine Recombinant (Shingrix) 12/03/2019 ,06/22/2019 documented as of this encounter Social History Tobacco Use Types Packs/Day Years Used Date Smoking Tobacco: Never Smokeless Tobacco: Never Alcohol Use Standard Drinks/Week Comments No 0 (1 standard drink = 0.6 oz pur e alcohol) PHQ-2 Answer Date Recorded PHQ Adult Total Score 0 10/28/2022 Hunger Vital Sign Answer Date Recorded Within the past 12 months, y ou worried that your food would run out before you got the money to buy more. Never true 10/29/19 23 Within the past 12 months, t he food you bought just didn't last and you didn't have money to get more. Never true 10/28/2022 Sex and Gender Information Value Date Recorded Sex Assigned at Female 10/28/2022 10:54 AM EDT Gender Identity Female 10/28/2022 10:54 AM EDT Sexual Orientation Straight 10/28/2022 10 :54 AM EDT Job Start Date Occupation Industry Not on file Not on file Not on file documented as of this encounter Nursing Notes * Madhavi Anderson RN - 03/29/2023 7:08 AM EST 03/29/23 7:08 AM Date to Remove: 7days Time to Remove: pm Seriel Number: [id number] Ordering Provider: cardiology Olga Gould CC Results: Jose Anderson RN Zio patch applied in clinic, as per provider orders. documented in this encounter Plan of Treatment Upcoming Encounters Date Type Department Care Team (Late st Contact Info) Description 04/21/2023 10:30 AM EST Office Visit [address] [place] [address] Jose Rodríguez PA-C [address] [place] [address] [place] [phone] 04/28/2023 10:30 AM EST Office Visit [address] [place] [address] Jose Rodríguez PA-C [address] [place] [address] [place] [address] 05/02/2023 10:20 AM EST Office Visit Family Medicine [address] [place] [phone] Jose Michael MD [address] [place] [address] [place] [address] 05/05/2023 10:30 AM EST Office Visit [address] [place] [address] Jose Rodríguez PA-C [address] [place] [address] [place] [phone] 05/12/2023 1:30 PM EST Office Visit Cardiology [address] [place] [address] Markell Mittal PA-C [address] [place] [address] 09/19/2023 10:20 AM EDT Office Visit Dermatology [address] [place] [address] Kristy Garcia PA-C [address] [place] [address] [place] [address] 02/01/2024 11:00 AM EDT Nurse Only Ancillary [address] [place] [address] [place], Nurse Annual Wellness [address] [place] [address] [place] [address] Scheduled Orders Name Type Priority Associated Diagnoses Orde r Schedule EXTERNAL EKG 2 TO 7 DAYS Holter Routine PAF (paroxysmal atrial fibrillation) (HCC) Atrial flutter, unspecified type (HCC) Expected: 03/29/2023 (Approximate), Expires: 03/28/2024 Health Maintenance Due Date Last Done Comments DTaP,Tdap,and Td Vaccines (1 - Tdap) 1968 Mammogram 1989 Cologuard 1994 Colonoscopy 1994 Colorectal Cancer Screening 1994 Fecal Occult Blood Test 1994 Sigmoidoscopy 1994 Hepatitis B (1 of 3 - Risk 3-dose series) 2009 DXA Scan 10/03/2021 10/03/2018 GFR 04/21/2023 10/19/2022, 12/0 05/2021, 10/20/2021, Additional history exists HbA1c 04/21/2023 10/19/2022, 120 05/2021, 10/20/2021, Additional history exists CKD HGB USE SMARTSET 96130 04/22/202304/22, 10/20/2021, 10/24/2020, Additional history exists Diabetic Foot Exam 04/29/2023 04/29/2022, 0 11/21/2019, 11/21/2019, Additional history exists Albumin/Creatinine Ratio 10/20/2023 023, 09/13/2022, 10/20/2021, Additional history exists CKD PHOS USE SMARTSET 46891 10/20/202309/22, 10/20/2021, 10/24/2020, Additional history exists Depression Screening 10/29/2023 10/28/2022 Diabetic Eye Exam 02/11/2024 02/10/2023, , 01/29/2021, Additional history exists Lipid Panel 10/20/2027 10/19/2022, 05/2021, 04/21/2021, Additional history exists Pneumococcal Vaccine: 65+ Years Completed 11/21/2019, 11/15/2018 Zoster Vaccines Completed 12/03/2019, 05/25, 09/15/2016 COVID-19 Vaccine Completed 2023, 10/2021, 09/29/2021, Additional history exists Influenza Vaccine (FLU shot) Completed , 02/26/2022, 2021, Additional history exists GARDASIL-HPV IMMUNIZATION SERIES Aged Out No longer eligible based on patient's age to complete this topic MENINGOCOCCAL (MENACTRA/MENVEO) Aged Out No longer eligible based on patient's age to complete this topic documented as of this encounter Medical Devices Not on filedocumented as of this encounter Visit Diagnoses Diagnosis PAF (paroxysmal atrial fibrillation) (HCC)- Primary Atrial fibrillation Atrial flutter, unspecified type (HCC) documented in this encounter Care Teams Memorial Designer Relationship Specialty Start Date End Date Jose Michael MD [address] [place] [address] [place] [address] PCP - General 03/24/1998 documented as of this encounter
--- OUTSIDE RECORDS SUMMARY | 2023-04-23 10:09 | External Medical Summary | Summary of Care ---
Author Name Unknown Organization [facility] Address [address] [place] [address] Phone [phone] Care Team Providers Care Furnace Charger Name Role Phone Jose Michael MD Primary Care Provider [phone] Reason for Visit * Reason Comments eRx-Medication Refill Encounter Details Date Type Department Care Team (Late st Contact Info) Description 04/17/2023 Refill Cardiology, [facility] [address] [place] [address] Sigrid Ramon PA-C [address] [place] [address] Dyslipidemia, goal LDL below 70* Allergies Active Allergy Reactions Criticality Noted Date Comments Baclofen Tachycardia 05/05/2021 AFib documented as of this encounter (statuses as of 04/18/2023) Medications Medication Sig Dispensed Refills Start Date End Date Status GORGE EVANS 33G MISCIndications:DM type 2, goal HbA1c < 7% ([facility]) e11.9 100 Each 5 11/03/2017 Active aspirin enteric coated 81 MG TBECIndications:DM type 2, goal HbA1c < 7% ([facility]),Benign hypertension with CKD (chronic kidney disease) stage III (HCC),Type 2 DM with CKD stage 3 and hypertension (HCC) Take 1 Tab by mouth daily. 100 Tab 3 02/27/2018 Active Cholecalciferol (VITAMIN D3) 2000 units CapsuleIndications :Vitamin D deficiency Take 1 Capsule by mouth in the morning. 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 DX: E11.9 100 Strip 11 03/19/2023 Active Lisinopril 10 MG Oral Tablet (Prinivil)Kory ons:Benign hypertension with CKD (chronic kidney disease) stage III (HCC),Chronic kidney disease, stage 3a (HCC),Type 2 diabetes mellitus with hemoglobin A1c goal of less than 7.0% (HCC),Primary hypertension One daily 90 Tablet 1 03/24/2023 Active Metoprolol Succinate ER 50 MG Oral Tablet Extended Release 24 Hour (toPROL XL)Indications:SVT (supraventricular tachycardia) Take 1 Tablet by mouth in the morning and 1 Tablet before bedtime. 180 Tablet 1 03/24/2023 Active Apixaban 5 MG Oral Tablet (Eliquis)Koryo ns:Paroxysmal atrial fibrillation (HCC) Take 1 Tablet by mouth in the morning and 1 Tablet before bedtime. 180 Tablet 1 03/24/2023 Active Atorvastatin Calcium 80 MG Oral Tablet (Lipitor)Koryo ns:Dyslipidemia, goal LDL below 70 TAKE 1 TABLET BY MOUTH EVERY DAY IN THE MORNING 90 Tablet 3 04/18/2023 Active Atorvastatin Calcium 80 MG Oral Tablet (Lipitor) Take 1 Tablet by mouth in the morning. 90 Tablet 3 06/09/2022 3 Discontinued documented as of this encounter (statuses as of 04/18/2023) Active Problems Problem Noted Date Diagnosed Date [...] as of this encounter (statuses as of 04/18/2023) Resolved Problems Problem Noted Date Diagnosed Date [...] as of this encounter (statuses as of 04/18/2023) Immunizations Name Administration Dates Next Due COVID-19 [...] on file documented as of this encounter Miscellaneous Notes * Telephone Encounter - Sigrid Ramon PA-C - 04/18/2023 10:27 AM ESTSigned Prescriptions: Disp Refills Atorvastatin Calcium 80 MG Oral Tablet (Li*90 Tab*3 Sig: TAKE 1 TABLET BY MOUTH EVERY DAY IN THE MORNING Authorizing Provider: SIGRID RAMON * Telephone Encounter - Ana Maria Chiang COT - 04/18/2023 10:27 AM ESTPending Prescriptions: Disp Refills Atorvastatin Calcium 80 MG Oral Tablet (Sherin*90 Tab*3 Sig: TAKE 1 TABLET BY MOUTH EVERY DAY IN THE MORNING * Telephone Encounter - Ana Maria Chiang COT - 04/18/2023 10:26 AM EST Did you pend patient's preferred pharmacy and medication before forwarding?yes Pharmacy: [id number] [id number] [facility] Pending Prescriptions: Disp Refills Atorvastatin Calcium 80 MG Oral Tablet (L*90 Tab*3 Sig: TAKE 1 TABLET BY MOUTH EVERY DAY IN THE MORNING Last Visit: 05/08/2021 (in office), Visit date not found (telemedicine) Next Visit: Visit date not found If no future appointments scheduled, and last appointment is greater than a year ago, please schedule patient for a follow-up appointment Last date the medication was ordered: 06-09-2022 Is this request for a controlled substance?No Urine Drug Screen:No results found for this or any previous visit. Patient Phone Numbers Labs: Lab Results Component Value Date/Time CREAT 1.2 (H) 10/19/2022 07:48 AM CREAT 1.2 (H) 04/28/2020 02:17 PM POTASSIUM 4.6 10/19/2022 07:48 AM POTASSIUM 4.5 04/28/2020 02:17 PM TSH 1.27 04/22/2022 07:38 AM TSH 0.89 07/27/2018 02:32 PM LDLCALC 82 10/19/2022 07:48 AM LDLCALC 79 04/28/2020 02:17 PM LDLDIRECT 100 04/22/2022 07:38 AM LDLDIRECT NOT APPLICABLE 04/28/2020 02:17 PM ALT 31 10/19/2022 07:48 AM ALT 30 04/28/2020 02:17 PM HGBA1C 6.4 (H) 10/19/2022 07:48 AM HGBA1C 6.2 (H) 04/28/2020 02:17 PM documented in this encounter Plan of Treatment Upcoming Encounters Date Type Department Care Team (Late st Contact Info) Description 04/21/2023 10:30 AM EST Office Visit Orthopaedics [facility] [address] [facility] [place] [address] Jose Rodríguez PA-C [address] [place] [address] [place] [address] 04/28/2023 10:30 AM EST Office Visit Orthopaedics [facility] [address] [facility] [place] [address] Jose Rodríguez PA-C [address] [place] [address] [place] [address] 05/02/2023 10:20 AM EST Office Visit Family Medicine [address] [place] [phone] Jose Michael MD [address] [place] [address] [place] [address] 05/05/2023 10:30 AM EST Office Visit Orthopaedics [address] [place] [address] Jose Rodríguez PA-C [address] [place] [address] [place] [address] 05/12/2023 1:30 PM EST Office Visit Cardiology [address] [place] [address] Sigrid Ramon PA-C [address] [facility] [place] [address] 05/27/2023 11:45 AM EST Office Visit Cardiology, [facility] [address] [facility] [place] [address] Nunu Giraldo, DO [address] [place] [address] 09/19/2023 10:20 AM EDT Office Visit Dermatology [address] [place] [address] Kristy Garcia PA-C [address] [place] [address] [place] [address] 02/01/2024 11:00 AM EDT Nurse Only Ancillary [place] [address] [place] [address] [place], Nurse [address] [place] [address] Health Maintenance Due Date Last Done Comments DTaP,Tdap,and Td Vaccines (1 - Tdap) 1968 Mammogram 1989 Cologuard 1994 Colonoscopy 1994 Colorectal Cancer Screening 1994 Fecal Occult Blood Test 1994 Sigmoidoscopy 1994 Hepatitis B (1 of 3 - Risk 3-dose series) 2009 DXA Scan 10/03/2021 10/03/2018 GFR 04/21/2023 10/19/2022, 12/0 05/2021, 10/20/2021, Additional history exists HbA1c 04/21/2023 10/19/2022, 12/0 05/2021, 10/20/2021, Additional history exists CKD HGB USE SMARTSET 05453 04/22/202304/22, 10/20/2021, 10/24/2020, Additional history exists Diabetic Foot Exam 04/29/2023 04/29/2022, 0 11/21/2019, 11/21/2019, Additional history exists Albumin/Creatinine Ratio 10/20/2023 023, 09/13/2022, 10/20/2021, Additional history exists CKD PHOS USE SMARTSET 16030 10/20/202309/22, 10/20/2021, 10/24/2020, Additional history exists Depression Screening 10/29/2023 10/28/2022 Diabetic Eye Exam 02/11/2024 02/10/2023, , 01/29/2021, Additional history exists Lipid Panel 10/20/2027 10/19/2022, 12/0 05/2021, 04/21/2021, Additional history exists Pneumococcal Vaccine: [...] as of this encounter Visit Diagnoses Diagnosis Dyslipidemia, goal LDL below 70- Primary Other and unspecified hyperlipidemia documented in this encounter Care Teams Furnace Charger Relationship Specialty Start Date End Date Jose Michael MD [address] [place] [address] [place] [address] PCP - General 03/24/1998 documented as of this encounter
--- OUTSIDE RECORDS SUMMARY | 2023-04-23 10:09 | External Medical Summary | Summary of Care ---
Author Name Unknown Organization [facility] Address [address] [facility] [address] Phone [phone] Care Team Providers Care Sales Inspector Name Role Phone Jose Michael MD Primary Care Provider [phone] Reason for Visit * Reason Comments Follow Up Right knee Encounter Details Date Type Department Care Team (Late st Contact Info) Description 04/21/2023 10:30 AM EST Office Visit Orthopaedics [facility] 132 [facility] [place] [address] Jose Rodríguez PA-C [address] [place] [address] [place] [address] Primary osteoarthritis of right knee* Allergies Active Allergy Reactions Criticality Noted Date Comments Baclofen Tachycardia 05/05/2021 AFib documented as of this encounter (statuses as of 04/21/2023) Medications Medication Sig Dispensed Refills Start Date End Date Status GORGE HERNANDEZ LANCETS 33G MISCIndications:DM type 2, goal HbA1c < 7% ([facility]) e11.9 100 Each 5 11/03/2017 Active aspirin enteric coated 81 MG TBECIndications:DM type 2, goal HbA1c < 7% ([facility]),Benign hypertension with CKD (chronic kidney disease) stage III ([facility]),Type 2 DM with CKD stage 3 and hypertension (HCC) Take 1 Tab by mouth daily. 100 Tab 3 02/27/2018 Active Cholecalciferol (VITAMIN D3) 2000 units CapsuleIndications:Vi tamin D deficiency Take 1 Capsule by mouth in the morning. 30 Cap 5 04/12/2018 Active OneTouch Verio In Vitro Strip (Glucose Blood)Indications:DM type 2, goal HbA1c < 7% ([facility]) TEST BLOOD SUGAR UP TO FOUR TIMES A DAY. 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 TAKE 1 TABLET (300 MG) BY MOUTH IN THE MORNING 90 Tablet 1 04/18/2023 Active Hospital, Clinic, or Other Facility Administered Medication Ordered Dose Route Frequency Start Date End Date Status sodium hyaluronate (Gelsyn-3) 16.8 MG/2ML inj 16.8 mgIndications:Primary osteoarthritis of right knee 16.8 mg IX ONCE 04/21/2023 04/21/2023 Ended documented as of this encounter (statuses as of 04/21/2023) Active Problems Problem Noted Date Diagnosed Date [...] as of this encounter (statuses as of 04/21/2023) Resolved Problems Problem Noted Date Diagnosed Date [...] as of this encounter (statuses as of 04/21/2023) Immunizations Name Administration Dates Next Due COVID-19 mRNA, LNP-s, No Pre serve, 2-Dose Series (Moderna) 08/02/2020,06/22/2020 COVID-19, MRNA-LNP, 23-24, P F, 30 MCG/0.3 mL, 12 YRS AND ABOVE, IM ([employer]) 2023 COVID-19, mRNA, LNP-s, PF, B ooster, [...] on file documented as of this encounter Progress Notes * Jose Rodríguez PA-C - 04/21/2023 10:27 AM EST ORTHOPAEDIC SURGERY - Clinic Note/Visco Injection SUBJECTIVE: Sindi Lee is a 73 year old female. Chief Complaint Patient presents with Follow Up Right knee HPI: Sindi is a very pleasant 73-year-old female who presents to the clinic today for repeat Gelsyn 3 viscosupplementation injection series for the right knee for treatment of her primary osteoarthritis. Her previous Gelsyn series from September of this year ended on 10/07/2022. She reports good relieffrom the series, and reports that she has no significant pain in her knee aside from some sharp pain she experiences when twisting. Of note, patient does state that she is being treated with Eliquis for recent diagnosis of SVT. No other orthopedic complaints at this time. Review of patient's allergies indicates: Allergen Reactions Baclofen Tachycardia AFib Current Outpatient Medications Medication Sig Dispense Refill ONETOUCH DELICA LANCETS 33G MISC e11.9 100 Each 5 aspirin enteric coated 81 MG TBEC Take 1 Tab by mouth daily. 100 Tab 3 Cholecalciferol (VITAMIN D3) 2000 units Capsule Take 1 Capsule by mouth in the morning. 30 Cap 5 OneTouch Verio In Vitro Strip (Glucose Blood) TEST BLOOD SUGAR UP TO FOUR TIMES A DAY. DX: E11.9 100 Strip 11 Lisinopril 10 MG Oral Tablet (Prinivil) One daily 90 Tablet 1 Metoprolol Succinate ER 50 MG Oral Tablet Extended Release 24 Hour (toPROL XL) Take 1 Tablet by mouth in the morning and 1 Tablet before bedtime. 180 Tablet 1 Apixaban 5 MG Oral Tablet (Eliquis) Take 1 Tablet by mouth in the morning and 1 Tablet before bedtime. 180 Tablet 1 Atorvastatin Calcium 80 MG Oral Tablet (Lipitor) TAKE 1 TABLET BY MOUTH EVERY DAY IN THE MORNING 90Tablet 3 Allopurinol 300 MG Oral Tablet (Zyloprim) TAKE 1 TABLET (300 MG) BY MOUTH IN THE MORNING 90 Tablet 1 No current facility-administered medications for this visit. ASSESSMENT: Primary osteoarthritis of right knee (Primary) - ARTHROCENT ASP &/OR INJ MAJOR JX/BURSA W/O US - sodium hyaluronate (Gelsyn-3) 16.8 MG/2ML inj 16.8 mg Follow Up: Return in about 1 week (around 04/28/2023) for Clinic Visit. | For: Clinic Visit PLAN: We will proceed with Gelsyn-3 viscosupplementation injection for the right knee as it was previously beneficial for her in the past. This will be her 1st injection of the current series. This was very well tolerated today. Patient was advised against significant physical activity with regard to theright knee for the rest of today, but was advised to resume activities as normal tomorrow. I would like patient to follow up in 1-2 weeks for her 2nd injection of her series. Patient was certainly urged to contact clinic in the interim with any questions, concerns, or worsening of symptoms. Patientis comfortable with the plan, and all questions were answered. Visco Injection Procedure Note: Right Knee: Time out: Prior to injection, a time out was called to confirm the administration of appropriate medicine, patient name, procedure and confirm to the best of our ability and knowledge the presence of any necessary risks and benefits. Patient verbalizes understanding. Consent obtained. Sterile techinique applied. Skin sterilized with alcohol swab and ChloraPrep. The right knee was injected using 1.5 inch, 22 gauge needle. Injected with Gelsyn 3 viscosupplementation preparation. Skin cleansed with alcohol and Band- Aid placed. Patient tolerated procedure with no significant bleeding or adverse reaction. Patient instructed to call or return to clinic for fever or warmth and redness at injection site for potential infection. Patient also advised as to potential for increased pain and redness at injection site which should be treated with ice and resolve within 24 hours. This chart was completed in part utilizing [employer] Speech Voice Recognition Software. Grammatical errors, random word insertions, pronoun errors, and incomplete sentences are an occasional consequence of this system due to software limitations, ambient noise, and hardware issues. Any formal questions or concerns about the content, text, or information contained within the body of this dictation should be directly addressed to the provider for clarification. Jose Rodríguez PA-C 04/21/2023 10:27 AM documented in this encounter Nursing Notes * Silvia Joseph MED ASSIST - 04/21/2023 10:18 AM EST Patient presents today for 1st Gelsyn inj of right knee. documented in this encounter Plan of Treatment Upcoming Encounters Date Type Department Care Team (Late st Contact Info) Description 04/28/2023 10:30 AM EST Office Visit Orthopaedics [address] [place] [address] Jose Rodríguez PA-C [address] [place] [place] [address] 05/02/2023 10:20 AM EST Office Visit Family [address] [place] [address] Jose Michael MD [address] [place] [address] [place] [address] 05/05/2023 10:30 AM EST Office Visit Orthopaedics [facility] 132 [facility] [place] [address] Jose Rodríguez PA-C [address] [place] [address] [place] [address] 05/12/2023 1:30 PM EST Office Visit Cardiology [address] [place] [address] Markell Mittal PA-C [address] [place] [address] 05/27/2023 11:45 AM EST Office Visit Cardiology, [facility] [address] [place] [address] Nunu Giraldo, [address] [place] [address] 09/19/2023 10:20 AM EDT Office Visit Dermatology [address] [place] [address] Kristy Garcia PA-C [address] [place] [address] [place] [address] 02/01/2024 11:00 AM EDT Nurse Only Ancillary [address] [place] [address] [place], Nurse Annual [address] [place] [address] Scheduled Orders Name Type Priority Associated Diagnoses Orde r Schedule ARTHROCENT ASP &/OR INJ MAJOR JX/BURSA W/O US Procedures Routine Primary osteoarthritis of right knee Ordered: 04/21/2023 Health Maintenance Due Date Last Done Comments [...] Additional history exists CKD HGB USE SMARTSET 06062 04/22/202304/22, 10/20/2021, 10/24/2020, Additional history exists Diabetic Foot Exam 04/29/2023 04/29/2022, 0 11/21/2019, 11/21/2019, Additional history exists Albumin/Creatinine Ratio 10/20/2023 023, 09/13/2022, 10/20/2021, Additional history exists CKD PHOS USE SMARTSET 36048 10/20/202309/22, 10/20/2021, 10/24/2020, Additional history exists Depression Screening 10/29/2023 10/28/2022 Diabetic Eye Exam 02/11/2024 02/10/2023, , 01/29/2021, Additional history exists Lipid Panel 10/20/2027 10/19/2022, 120 05/2021, 04/21/2021, Additional history exists Pneumococcal Vaccine: [...] as of this encounter Visit Diagnoses Diagnosis Primary osteoarthritis of right knee- Primary Primary localized osteoarthrosis, lower leg documented in this encounter Administered Medications Inactive Administered Medications - up to 3 most recent administrations Medication Order MAR Action Action Date Dose Rate Site sodium hyaluronate (Gelsyn-3) 16.8 MG/2ML inj 16.8 mg 16.8 mg, Intra-Articular, ONCE, On Rebecca 04/21/23 at 1100, For 1 dose Given 04/21/2023 10:34 AM EST 16.8 mg Knee Right documented in this encounter Care Teams Sales Inspector Relationship Specialty Start Date End Date Jose Michael MD [address] [place] [address] [place] [phone] PCP - General 03/24/1998 documented as of this encounter"
--- OUTSIDE RECORDS SUMMARY | 2023-04-23 10:09 | External Medical Summary | Summary of Care ---
Author Name Unknown Organization [facility] [address] [facility] [address] Phone [phone] Care Team Providers Care Pelletizer Operator Name Role Phone Jose Michael MD Primary Care Provider [phone] Reason for Referral * Evaluate & Treat - Unlimited Visits (Within 10 days (routine)) - Authorized Specialty Diagnoses / Procedures Referred By Contact Referred To Contact Cardiac Electrophysiology / Cardiology Diagnoses Tachy-aristoe syndrome (HCC) Markell Mittal PA-C [address] [place] [address] Nunu Giraldo DO [address] [place] [address] Referral ID Status Reason Start Date Expiration Date Visits Requested Visits Authorized [id number] Authorized Specialty Services Required 3 [phone] Question Answer Referral Priority Within 10 days (routine) Where should this appointment be scheduled? Cornelia Comments Abnormal Zio monitor TBS Reason for Visit * Reason Onset Date Comments Test Results 04/15/2023 Encounter Details Date Type Department Care Team (Late st Contact Info) Description 04/15/2023 Telephone Cardiology, [facility] [address] [place] [address] Markell Mittal PA-C [address] [place] [phone] Test Results Allergies Active Allergy Reactions Criticality Noted Date Comments Baclofen Tachycardia 05/05/2021 AFib documented as of this encounter (statuses as of 04/18/2023) Medications Medication Sig Dispensed Refills Start Date End Date Status GORGE HERNANDEZ LANCETS 33G MISCIndications:DM type 2, goal HbA1c < 7% ([facility]) e11.9 100 Each 5 11/03/2017 Active aspirin enteric coated 81 MG TBECIndications:DM type 2, goal HbA1c < 7% (HCC),Benign hypertension with CKD (chronic kidney disease) stage [...] DM type 2, goal HbA1c < 7% ([facility]) TEST BLOOD SUGAR UP TO FOUR TIMES A DAY. DX: E11.9 100 Strip 11 03/19/2023 Active Lisinopril 10 MG Oral Tablet (Prinivil)Indicati ons:Benign hypertension with CKD (chronic kidney disease) stage III (HCC),Chronic kidney disease, stage 3a (HCC),Type 2 diabetes mellitus with hemoglobin A1c goal of less than 7.0% ([facility]),Primary hypertension One daily 90 Tablet 1 03/24/2023 Active Metoprolol Succinate ER 50 MG Oral Tablet Extended Release 24 Hour (toPROL XL)Indications:SVT (supraventricular tachycardia) Take 1 Tablet by mouth in the morning and 1 Tablet before bedtime. 180 Tablet 1 03/24/2023 Active Apixaban 5 MG Oral Tablet (Eliquis)Indicatio ns:Paroxysmal atrial fibrillation (HCC) Take 1 Tablet [...] MCG/0.3 mL, 12 YRS AND ABOVE, IM ([employer]) 2023 COVID-19, mRNA, LNP-s, PF, B ooster, [...] encounter Miscellaneous Notes * Telephone Encounter - Abdirahman Wooten RN - 04/15/2023 1:01 PM EST Patient returned call [facility] clinic. Reviewed the message with her from Olga Gould in regards toher ZIO monitor report. She stated she understood and is willing to see EP. Referral placed. ---- - Message from LOYD Campbell sent at 04/11/2023 3:59 PM EST ----- Zio monitor showed SR with an average HR of 50 bpm. Multiple episodes (137) of SVT noted with the longest lasting 44 seconds. Some of the episodes of SVT possibly PAF. PAC burden of 1.2% (occasional) Patient was symptomatic with PAF/SVT/PACs Unable to titrate beta shan due to slow resting heart rate- and I do have some concerns regarding some of her slower readings-- recommend EP referral due to TBS. documented in this encounter Plan of Treatment Upcoming Encounters Date Type Department Care Team (Late st Contact Info) Description 04/21/2023 10:30 AM EST Office Visit Orthopaedics [address] [place] [address] Jose Rodríguez PA-C [address] [place] [address] [place] [phone] 04/28/2023 10:30 AM EST Office Visit [facility] [address] [place] [place] [address] Jose Rodríguez PA-C [address] [place] [address] [place] [address] 05/02/2023 10:20 AM EST Office Visit Family Medicine [address] [place] [phone] Jose Michael MD [address] [place] [address] [place] [address] 05/05/2023 10:30 AM EST Office Visit [facility] [address] [place] [address] Jose Rodríguez PA-C [address] [place] [address] [place] [address] 05/12/2023 1:30 PM EST Office Visit Cardiology [address] [place] [address] Markell Mittal PA-C [address] [place] [address] 09/19/2023 10:20 AM EDT Office Visit Dermatology [address] [place] [address] Kristy Garcia PA-C [address] [place] [address] [place] [address] 02/01/2024 11:00 AM EDT Nurse Only Ancillary [address] [place] [address] [place], Nurse Annual [address] [place] [address] Scheduled Referrals Name Type Priority Associated Diagnoses Order Schedule ELECTROPHYSIOLOGY REFERRAL OP Referral Within 10 days (routine) Tachy-aristeo syndrome (HCC) Ordered: 04/15/2023 Health Maintenance Due Date Last Done Comments DTaP,Tdap,and Td Vaccines (1 - Tdap) 1968 Mammogram 1989 Cologuard 1994 Colonoscopy 1994 Colorectal Cancer Screening 1994 Fecal Occult Blood Test 1994 Sigmoidoscopy 1994 Hepatitis B (1 of 3 - Risk 3-dose series) 2009 DXA Scan 10/03/2021 10/03/2018 GFR 04/21/2023 10/19/2022, 1205/2021, 10/20/2021, Additional history exists HbA1c 04/21/2023 10/19/2022, 12/0 05/2021, 10/20/2021, Additional history exists CKD HGB USE SMARTSET 23140 04/22/202304/22, 10/20/2021, 10/24/2020, Additional history exists Diabetic Foot Exam 04/29/2023 04/29/2022, 0 11/21/2019, 11/21/2019, Additional history exists Albumin/Creatinine Ratio 10/20/2023 023, 09/13/2022, 10/20/2021, Additional history exists CKD PHOS USE SMARTSET 77600 10/20/2023 05/3 , 10/20/2021, 10/24/2020, Additional history exists Depression Screening 10/29/2023 10/28/2022 Diabetic Eye Exam 02/11/2024 02/10/2023, , 01/29/2021, Additional history exists Lipid Panel 10/20/2027 10/19/2022, 1205/2021, 04/21/2021, Additional history exists Pneumococcal Vaccine: 65+ [...] as of this encounter Visit Diagnoses Diagnosis Tachy-aristeo syndrome (HCC)- Primary Sinoatrial node dysfunction documented in this encounter Care Teams Pelletizer Operator Relationship Specialty Start Date End Date Jose Michael MD [address] [place] [address] [place] [phone] PCP - General 03/24/1998 documented as of this encounter
--- OUTSIDE RECORDS SUMMARY | 2023-04-23 10:09 | External Medical Summary | Summary of Care ---
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 Allergies Active Allergy Reactions Criticality Noted Date Comments Baclofen Tachycardia 05/05/2021 AFib documented as of this encounter (statuses as of 04/18/2023) Medications Medication Sig Dispensed Refills Start Date End Date Status GORGE EVANS 33G MISCIndications:DM type 2, goal HbA1c < 7% ([facility]) e11.9 100 Each 5 11/03/2017 Active aspirin enteric coated 81 MG TBECIndications:DM type 2, goal HbA1c < 7% ([facility]),Benign hypertension with CKD (chronic kidney disease) stage III ([facility]),Type 2 DM with CKD stage 3 and hypertension (HCC) Take 1 Tab by mouth daily. 100 Tab 3 02/27/2018 Active Cholecalciferol (VITAMIN D3) 2000 units CapsuleIndications :Vitamin D deficiency Take 1 Capsule by mouth in the morning. 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 TAKE 1 TABLET (300 MG) BY MOUTH IN THE MORNING 90 Tablet 1 04/18/2023 Active Allopurinol 300 MG Oral Tablet (Zyloprim)Indicati ons: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 TAKE 1 TABLET (300 MG) BY MOUTH IN THE MORNING 90 Tablet 1 12/03/2022 3 Discontinued documented as of this encounter [...] encounter Miscellaneous Notes * Telephone Encounter - Omaira Briceno RPh - 04/18/2023 12:31 PM ESTSigned Prescriptions: Disp Refills Allopurinol 300 MG Oral Tablet (Zyloprim) 90 Tab*1 Sig: TAKE 1 TABLET (300 MG) BY MOUTH IN THE MORNINGAuthorizing Provider: JOSE POND User: OMAIRA BRICENO documented in this encounter Plan of Treatment Upcoming Encounters Date Type Department Care Team (Late st Contact Info) Description 04/21/2023 10:30 AM EST Office Visit Orthopaedics [facility] 132 [facility] [place] [address] Jose Rodríguez PA-C [address] [place] [address] [place] [phone] 04/28/2023 10:30 AM EST [facility] [place] [address] Jose Rodríguez PA-C [address] [place] [address] [place] [phone] 05/02/2023 10:20 AM EST Office Visit Family Medicine [address] [place] [phone] Jose Pond MD [address] [place] [address] [place] [address] 05/05/2023 10:30 AM EST Office Visit Orthopaedics [facility] 132 [facility] [place] [address] Jose Rodríguez PA-C [address] [place] [address] [place] [address] 05/12/2023 1:30 PM EST Office Visit Cardiology [address] [place] [address] Markell Mittal PA-C 132 [facility] [place] [address] 05/27/2023 11:45 AM EST Office Visit Cardiology, [address] [place] [address] Nunu Giraldo, DO [facility] [place] [address] 09/19/2023 10:20 AM EDT Office Visit Dermatology [address] [place] [address] Kristy Garcia PA-C [address] [place] [address] [place] [address] 02/01/2024 11:00 AM EDT Nurse Only Ancillary [address] [place] [address] [place], Nurse Annual [address] [place] [address] Health Maintenance Due Date Last Done Comments DTaP,Tdap,and Td Vaccines (1 - Tdap) 1968 Mammogram 1989 Cologuard 1994 Colonoscopy 1994 Colorectal Cancer Screening 1994 Fecal Occult Blood Test 1994 Sigmoidoscopy 1994 Hepatitis B (1 of 3 - Risk 3-dose series) 2009 DXA Scan 10/03/2021 10/03/2018 GFR 04/21/2023 10/19/2022, 120 05/2021, 10/20/2021, Additional history exists HbA1c 04/21/2023 10/19/2022, 120 05/2021, 10/20/2021, Additional history exists CKD HGB USE SMARTSET 96803 04/22/202304/22, 10/20/2021, 10/24/2020, Additional history exists Diabetic Foot Exam 04/29/2023 04/29/2022, 0 11/21/2019, 11/21/2019, Additional history exists Albumin/Creatinine Ratio 10/20/2023 023, 09/13/2022, 10/20/2021, Additional history exists CKD PHOS USE SMARTSET 55728 10/20/202309/22, 10/20/2021, 10/24/2020, Additional history exists Depression [...] as of this encounter Visit Diagnoses Diagnosis 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
--- OUTSIDE RECORDS SUMMARY | 2023-04-23 10:09 | External Medical Summary | Summary of Care ---
Author Name Unknown Organization [facility] Address [address] [facility] [place] [address] [address] Phone [phone] Care Team Providers Care Spike Maker Name Role Phone Jose Michael MD Primary Care Provider [phone] Encounter Details Date Type Department Care Team (Late st Contact Info) Description 03/28/2023 11:00 AM EST Nurse Only Ancillary [address] [place] [phone] [place], Nurse [address] [place] [address] Allergies Active Allergy Reactions Criticality Noted Date Comments Baclofen Tachycardia 05/05/2021 AFib documented as of this encounter (statuses as of 03/28/2023) Medications Medication Sig Dispensed Refills Start Date End Date Status GORGE EVANS 33G MISCIndications:DM type 2, goal HbA1c < 7% ([facility]) e11.9 100 Each 5 11/03/2017 Active aspirin enteric coated 81 MG TBECIndications:DM type 2, goal HbA1c < 7% ([facility]),Benign hypertension with CKD (chronic kidney disease) stage III ([facility]),Type 2 DM with CKD stage 3 and [...] Blood)Indications:DM type 2, goal HbA1c < 7% ([facility]) TEST BLOOD SUGAR UP TO FOUR TIMES A DAY. DX: E11.9 100 Strip 11 03/19/2023 Active Lisinopril 10 MG Oral Tablet (Prinivil)Indications :Benign hypertension with CKD (chronic kidney disease) stage III ([facility]),Chronic kidney disease, stage 3a (HCC),Type 2 diabetes mellitus with hemoglobin A1c goal of less than 7.0% ([facility]),Primary hypertension One daily 90 Tablet [...] as of this encounter (statuses as of 03/28/2023) Active Problems Problem Noted Date Diagnosed Date [...] as of this encounter (statuses as of 03/28/2023) Resolved Problems Problem Noted Date Diagnosed Date [...] as of this encounter (statuses as of 03/28/2023) Immunizations Name Administration Dates Next Due COVID-19 [...] on file documented as of this encounter Plan of Treatment Upcoming Encounters Date Type Department Care Team (Late st Contact Info) Description 04/21/2023 10:30 AM EST Office Visit [facility] [address] [place] [address] Jose Rodríguez PA-C [address] [place] [address] [place] [phone] 04/28/2023 10:30 AM EST [facility] [place] [address] Jose Rodríguez PA-C [address] [place] [address] [place] [phone] 05/02/2023 10:20 AM EST Office Visit Family Medicine [address] [place] [phone] Jose Michael MD [address] [place] [address] [place] [address] 05/05/2023 10:30 AM EST Office Visit [facility] [address] [place] [address] Jose Rodríguez PA-C [address] [place] [address] [place] [phone] 05/12/2023 1:30 PM EST Office Visit Cardiology [address] [place] [address] Markell Mittal PA-C [address] [facility] [place] [address] 09/19/2023 10:20 AM EDT Office Visit Dermatology [address] [place] [address] Kristy Garcia, NILSA [address] [place] [address] [place] [address] 02/01/2024 11:00 AM EDT Nurse Only Ancillary [address] [place] [address] [place], Nurse Annual Wellness [address] [place] [address] [place] [address] Scheduled Orders Name Type Priority Associated Diagnoses [...] Additional history exists CKD HGB USE SMARTSET 51179 04/22/202304/22, 10/20/2021, 10/24/2020, Additional history exists Diabetic Foot Exam 04/29/2023 04/29/2022, 0 11/21/2019, 11/21/2019, Additional history exists Albumin/Creatinine Ratio 10/20/2023 023, 09/13/2022, 10/20/2021, Additional history exists CKD PHOS USE SMARTSET 22887 10/20/202309/22, 10/20/2021, 10/24/2020, Additional history exists Depression [...] (HCC) documented in this encounter Care Teams Spike Maker Relationship Specialty Start Date End Date Jose Michael MD [address] [place] [address] [place] [phone] PCP - General 03/24/1998 documented as of this encounter
--- OUTSIDE RECORDS SUMMARY | 2023-04-23 10:09 | External Medical Summary | Summary of Care ---
Author Name Unknown Organization [facility] Address [address] [place] [facility] [place] [address] Phone [phone] Care Team Providers Care Broodmare Barn Groom Name Role Phone Jose Michael MD Primary Care Provider [phone] Reason for Visit * Reason Onset Date Comments Test Results 04/15/2023 Encounter Details Date Type Department Care Team (Late st Contact Info) Description 04/15/2023 Telephone Cardiology, [facility] [address] [place] [address] Olga Gould CRNP [address] [place] [address] Test Results Allergies Active Allergy Reactions Criticality Noted Date Comments Baclofen Tachycardia 05/05/2021 AFib documented as of this encounter (statuses as of 04/15/2023) Medications Medication Sig Dispensed Refills Start Date End Date Status GORGE EVANS 33G MISCIndications:DM type 2, goal HbA1c < 7% ([facility]) e11.9 100 Each 5 11/03/2017 Active aspirin enteric coated 81 MG TBECIndications:DM type 2, goal HbA1c < 7% ([facility]),Benign hypertension with CKD (chronic kidney disease) stage III ([facility]),Type 2 DM with CKD stage 3 [...] Blood)Indications:DM type 2, goal HbA1c < 7% ([facility]) TEST BLOOD SUGAR UP TO FOUR [...] as of this encounter (statuses as of 04/15/2023) Active Problems Problem Noted Date Diagnosed Date [...] as of this encounter (statuses as of 04/15/2023) Resolved Problems Problem Noted Date Diagnosed Date [...] as of this encounter (statuses as of 04/15/2023) Immunizations Name Administration Dates Next Due COVID-19 [...] encounter Miscellaneous Notes * Telephone Encounter - Marie Hilario OSA - 04/15/2023 12:57 PM EST Pt returning call. Call xferred to RN @ [facility] for f/u. * Telephone Encounter - Abdirahman Wooten RN - 04/15/2023 12:47 PM EST Called and spoke to the patient's . He will give his the message to have her call us back regarding the message from Olga Gould. ---- Message from LOYD Campbell sent at 04/11/2023 [...] 04/21/2023 10:30 AM EST Office Visit Orthopa[facility] [address] [facility] [place] [address] Jose Rodríguez PA-C [address] [place] [address] [place] [phone] 04/28/2023 10:30 AM EST [facility] 132 [facility] [place] [address] Jose Rodríguez PA-C [address] [place] [address] [place] [phone] 05/02/2023 10:20 AM EST Office Visit Family Medicine [address] [place] [phone] Jose Michael MD [address] [place] [address] [place] [address] 05/05/2023 10:30 AM EST Office Visit [facility] [place] [address] Jose Rodríguez PA-C [address] [place] [address] [place] [phone] 05/12/2023 1:30 PM EST Office Visit Cardiology [address] [place] [address] Markell Mittal PA-C [address] [facility] [place] [address] 09/19/2023 10:20 AM EDT Office Visit Dermatology [address] [place] [address] Kristy Garcia PA-C [address] [place] [address] [place] [address] 02/01/2024 11:00 AM EDT Nurse Only Ancillary [address] [place] [address] [place], Nurse Annual Wellness [address] [place] [address] [place] [address] Health Maintenance Due Date Last Done Comments [...] Additional history exists CKD HGB USE SMARTSET 26739 04/22/202304/22, 10/20/2021, 10/24/2020, Additional history exists Diabetic Foot Exam 04/29/2023 04/29/2022, 0 11/21/2019, 11/21/2019, Additional history exists Albumin/Creatinine Ratio 10/20/2023 023, 09/13/2022, 10/20/2021, Additional history exists CKD PHOS USE SMARTSET 87002 10/20/202309/22, 10/20/2021, 10/24/2020, Additional history exists Depression [...] Not on filedocumented as of this encounter Care Teams Broodmare Barn Groom Relationship Specialty Start Date End Date Jose Michael MD [address] [place] [address] [place] [address] PCP - General 03/24/1998 documented as of this encounter
--- OUTSIDE RECORDS SUMMARY | 2023-04-23 10:09 | External Medical Summary | Summary of Care ---
Author Name Unknown Organization [facility] Address [address] [facility] [place] [place] [address] Phone [phone] Care Team Providers Care Healthcare Network Consultant Name Role Phone Jose Michael MD Primary Care Provider [phone] Reason for Visit * Reason Onset Date Comments Test Results 04/15/2023 Encounter Details Date Type Department Care Team (Late st Contact Info) Description 04/15/2023 Telephone Cardiology, [facility] [address] [place] [address] Olga Gould CRNP [address] [place] [address] Test Results Allergies Active Allergy Reactions Criticality Noted Date Comments Baclofen Tachycardia 05/05/2021 AFib documented as of this encounter (statuses as of 04/15/2023) Medications Medication Sig Dispensed Refills Start Date End Date Status GORGE EVANS 33G MISCIndications:DM type 2, goal HbA1c < 7% ([facility]) e11.9 100 Each 5 11/03/2017 Active aspirin enteric coated 81 MG TBECIndications:DM type 2, goal HbA1c < 7% ([facility]),Benign hypertension with CKD (chronic kidney disease) stage III ([facility]),Type 2 DM with CKD stage [...] Blood)Indications:DM type 2, goal HbA1c < 7% ([facility]) TEST BLOOD SUGAR UP TO [...] call. Call xferred to RN @ [facility] for f/u. * Telephone Encounter - Abdirahman [...] 04/21/2023 10:30 AM EST Office Visit Orthopaedics [facility] [address] [facility] [place] [address] Jose Rodríguez PA-C [address] [place] [address] [place] [phone] 04/28/2023 10:30 AM EST [facility] [address] [facility] [place] [address] Jose Rodríguez PA-C [address] [place] [address] [place] [phone] 05/02/2023 10:20 AM EST Office Visit Family Medicine [address] [place] [phone] Jose Michael MD [address] [place] [address] [place] [address] 05/05/2023 10:30 AM EST Office Visit Orthopaedics [facility] [place] [address] Jose Rodríguez PA-C [address] [place] [address] [place] [phone] 05/12/2023 1:30 PM EST Office Visit Cardiology [address] [place] [address] Markell Mittal PA-C [address] [facility] [place] [address] 09/19/2023 10:20 AM EDT Office Visit Dermatology [address] [place] [address] Kristy Garcia PA-C [address] [place] [address] [place] [address] 02/01/2024 11:00 AM EDT Nurse Only Ancillary [address] [place] [address] [place], Nurse Annual Wellness [address] [place] [address] [place] [address] Health Maintenance Due Date Last Done Comments [...] Additional history exists CKD HGB USE SMARTSET 56115 04/22/202304/22, 10/20/2021, 10/24/2020, Additional history exists Diabetic Foot Exam 04/29/2023 04/29/2022, 0 11/21/2019, 11/21/2019, Additional history exists Albumin/Creatinine Ratio 10/20/2023 023, 09/13/2022, 10/20/2021, Additional history exists CKD PHOS USE SMARTSET 60098 10/20/202309/22, 10/20/2021, 10/24/2020, Additional history exists Depression [...] filedocumented as of this encounter Care Teams Healthcare Network Consultant Relationship Specialty Start Date End Date Jose Michael MD [address] [place] [address] [place] [address] PCP - General 03/24/1998 documented as of this encounter
--- OUTSIDE RECORDS SUMMARY | 2023-04-23 10:09 | External Medical Summary | Summary of Care ---
Author Name Unknown Organization [facility] Address [address] [facility] [address] Phone [phone] Care Team Providers Care Guitar Repairer Name Role Phone Jose Michael MD Primary Care Provider [phone] Reason for Visit * Reason Onset Date Comments Test Results 04/15/2023 Encounter Details Date Type Department Care Team (Late st Contact Info) Description 04/15/2023 Telephone Cardiology, [facility] [address] [place] [address] Markell Mittal PA-C [address] [place] [address] Test Results Allergies Active Allergy Reactions Criticality Noted Date Comments Baclofen Tachycardia 05/05/2021 AFib documented as of this encounter (statuses as of 04/15/2023) Medications Medication Sig Dispensed Refills Start Date End Date Status GORGE EVANS 33G MISCIndications:DM type 2, goal HbA1c < 7% ([facility]) e11.9 100 Each 5 11/03/2017 Active aspirin enteric coated 81 MG TBECIndications:DM type 2, goal HbA1c < 7% ([facility]),Benign hypertension with CKD (chronic kidney disease) stage III ([facility]),Type 2 DM with CKD stage 3 and [...] Blood)Indications:DM type 2, goal HbA1c < 7% (HCC) [...] Encounter - Abdirahman Wooten RN - 04/15/2023 12:44 PM EST Encounter in error documented in this encounter Plan of Treatment Upcoming Encounters Date Type Department Care Team (Late st Contact Info) Description 04/21/2023 10:30 AM EST Office Visit Orthopaedics [address] [place] [address] Jose Rodríguez PA-C [address] [place] [address] [place] [phone] 04/28/2023 10:30 AM EST Office Visit Orthopaedics [address] [place] [address] Jose Rodríguez PA-C [address] [place] [address] [place] [phone] 05/02/2023 10:20 AM EST Office Visit Family Medicine [address] [place] [phone] Jose Michael MD [address] [place] [address] [place] [address] 05/05/2023 10:30 AM EST Office Visit Orthopaedics [address] [place] [address] Jose Rodríguez PA-C [address] [place] [address] [place] [phone] 05/12/2023 1:30 PM EST Office Visit Cardiology [address] [place] [address] Markell Mittal PA-C [address] [place] [address] 09/19/2023 10:20 AM EDT Office Visit Dermatology [address] [place] [address] Kristy Garcia PA-C [address] [place] [address] [place] [address] 02/01/2024 11:00 AM EDT Nurse Only Ancillary [address] [place] [address] [place], Nurse Annual Wellness [address] [place] [address] [place] [address] Health Maintenance Due Date Last Done Comments [...] Additional history exists CKD HGB USE SMARTSET 02629 04/22/202304/22, 10/20/2021, 10/24/2020, Additional history exists Diabetic Foot Exam 04/29/2023 04/29/2022, 0 11/21/2019, 11/21/2019, Additional history exists Albumin/Creatinine Ratio 10/20/2023 023, 09/13/2022, 10/20/2021, Additional history exists CKD PHOS USE SMARTSET 44685 10/20/202309/22, 10/20/2021, 10/24/2020, Additional history exists Depression Screening 10/29/2023 10/28/2022 Diabetic Eye Exam 02/11/2024 02/10/2023, , 01/29/2021, Additional history exists Lipid Panel 10/20/2027 10/19/2022, 12/05/2021, 04/21/2021, Additional history exists Pneumococcal Vaccine: 65+ [...] filedocumented as of this encounter Care Teams Guitar Repairer Relationship Specialty Start Date End Date Jose Michael MD [address] [place] [address] [place] [phone] PCP - General 03/24/1998 documented as of this encounter
--- OUTSIDE RECORDS SUMMARY | 2023-04-23 10:10 | External Medical Summary | Summary of Care ---
Author Name Unknown Organization [facility] Address [address] [facility] [place] [address] Phone [phone] Care Team Providers Care Valet Name Role Phone Jose Michael MD Primary Care Provider [phone] Reason for Visit * Reason Comments Adult Annual Wellness Visit, Initial Vis it Encounter Details Date Type Department Care Team Description 10/28/2022 Nurse Only Ancillary [address] [place] [id number] [facility] Nurse [address] [place] [id number] Adult Annual Wellness Visit, Initial Visit Allergies Active Allergy Reactions Severity Noted Date Comments Baclofen Tachycardia 05/05/2021 AFib documented as of this encounter (statuses as of 10/28/2022) Medications Medication Sig Dispensed Refills Start Date End Date Status GORGE EVANS 33G MISCIndications:DM type 2, goal HbA1c < 7% ([facility]) e11.9 100 Each 5 11/03/2017 Active aspirin enteric coated 81 MG TBECIndications:DM type 2, goal HbA1c < 7% ([facility]),Benign hypertension with CKD (chronic kidney disease) stage III ([facility]),Type 2 DM with CKD stage 3 and hypertension (HCC) Take 1 Tab by mouth daily. 100 Tab 3 02/27/2018 Active Cholecalciferol (VITAMIN D3) 2000 units CapsuleIndications: Vitamin D deficiency Take 1 Capsule by mouth in the morning. 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 90 Tablet 1 04/29/2022 Active OneTouch Verio In Vitro Strip (Glucose Blood)Indications:D M type 2, goal HbA1c < 7% ([facility]) TEST BLOOD SUGAR UP TO FOUR TIMES A DAY. DX: E11.9 100 Strip 11 05/10/2022 Active Metoprolol Succinate ER 50 MG Oral Tablet Extended Release 24 Hour (toPROL XL)Indications:SVT (supraventricular tachycardia) ([facility]) Take 0.5 Tablets by mouth in the morning and 0.5 Tablets before bedtime. 90 Tablet 3 06/10/2022 Active Atorvastatin Calcium 80 MG Oral Tablet (Lipitor) Take 1 Tablet by mouth in the morning. 90 Tablet 3 06/09/2022 Active Lisinopril 10 MG Oral Tablet (Prinivil)Indicatio ns:Benign hypertension with CKD (chronic kidney disease) stage III ([facility]),Primary hypertension,Type 2 diabetes mellitus with hemoglobin A1c goal of less than 7.0% ([facility]),Chronic kidney disease, stage 3a (HCC) Take 1 Tablet by mouth in the morning. 90 Tablet 1 10/28/2022 Active Mupirocin 2 % External Ointment (Bactroban)Indicati ons:Seborrheic keratosis Apply under bandage to open wounds daily after washing with soap and water until healed (at least 3 weeks) 22 g 1 09/09/2021 10/28/2022 Discontinued (Medication List Clean Up) documented as of this encounter (statuses as of 10/28/2022) Active Problems Problem Noted Date Benign hypertension with CKD (chronic ki dney disease) stage III 09/13/2022 SVT (supraventricular tachycardia) 06/17 Chronic anxiety 05/21/2021 Paroxysmal atrial fibrillation Type 2 diabetes mellitus with hemoglobin A1c goal of less than 7.0% 05/05/2021 Chronic kidney disease, stage 3a 021 Overview: Per CKD protocol BMI 30.0-30.9,adult 09/18/2018 Overview: 172 Vitamin D deficiency 04/12/2018 Benign hypertension with stage 3a chroni c kidney disease 10/24/2017 Overview: Per CKD protocol Idiopathic chronic gout of left foot wit hout tophus 10/20/2017 Overview: uric acid 11.2 ADVANCE DIRECTIVE INFORMATION 06/28/2005 Overview: No, Advance Directive brochure offered , patient declined. Primary hypertension Hyperlipidemia LDL goal <100 documented as of this encounter (statuses as of 10/28/2022) Resolved Problems Problem Noted Date Resolved Date Type 2 diabetes mellitus wit h stage 3a chronic kidney disease, without long-term current use of insulin 04/20/202208/22 Type 2 diabetes mellitus wit h stage 3a chronic kidney disease 09/30/2020 05/05/2021 Overview: Per CKD protocol CKD stage 3 due to type 2 diabetes mellitus 06/201710/02/2020 Overview: Per CKD protocol DM type 2, goal HbA1c < 7% 10/20/201705/05 Overview: glucose 297 Cutaneous skin tags 03/05/2015 01/03/2018 Ganglion 11/11/2003 04/14/2018 Other atopic dermatitis 11/11/2003 03/05/20 15 Overview: ICD-10 update of inactive term Other allergic rhinitis 11/11/2003 03/05/20 15 Overview: ICD-10 update of inactive term BENIGN HYPERTENSION 03/05/2015 Herpes simplex virus infection 1 PURE HYPERCHOLESTEROLEM 03/05/20 15 Tachycardia 02/27/2018 Hyperlipidemia with target LDL less than 130 10/28/2017 Overview: ICD-10 update of inactive term Benign hypertension with CKD (chronic kidney disease) stage III 10/02/2020 Overview: Per CKD protocol Type 2 DM with CKD stage 3 and hypertension 03/13/2018 Gout of left ankle 02/27/2018 documented as of this encounter (statuses as of 10/28/2022) Immunizations Name Administration Dates Next Due COVID-19 mRNA, LNP-s, No Pre serve, 2-Dose Series (Moderna) 08/02/2020,06/22/2020 Covid-19 Mrna, Lnp-s, No Preserve, Booster (Mode rna) 09/29/2021,04/13/2021 Covid-19, Mrna, Lnp-s, Pf, B ivalent, 30 Mcg, IM, 12 yrs and above (Pfizer) 04/27/2022 Pneumococcal Conjugate Vacc, 13 Valent (Prevnar) 11/15/2018 Pneumococcal Polysaccharide PPV23 (Pneumovax) Seasonal Influenza, Quadrivalent Hd, 65+ Yrs 11/2021,02/02/2020 Seasonal Influenza, Quadriva lent, No Preserve, 6 Mons & Above, IM 03/13/2018 Seasonal Influenza, Quadriva lent, No Preserve, Adjuvanted, 65+ Yrs, IM 2021,02/02/2020 Seasonal Influenza, Quadrivalent, No Preserve, I M 03/05/2015 Seasonal Influenza, Split, IIV3, No Preserve, In j 03/07/2010 Seasonal Influenza, Split, IIV3, With Preserve, Inj 02/21/2016 Seasonal Influenza, Trivalent, Adjuvanted, 65+ y rs 01/23/2019 Seasonal Influenza, Trivalen t, High Dose, No Preserve, IM 2017 Varicella Zoster Vaccine (Adult) 09/15/2016 Zoster Vaccine Recombinant (Shingrix) 12/03/2019 ,06/22/2019 documented as of this encounter Social History Tobacco Use Types Packs/Day Years Used Date Smoking Tobacco: Never Smokeless Tobacco: Never Tobacco Cessation:Counseling Given: Not Answered Alcohol Use Standard Drinks/Week Comments No 0 (1 standard drink = 0.6 oz pur e alcohol) Food Insecurity Answer Date Recorded Within the past 12 months, y ou worried that your food would run out before you got money to buy more. Never true 10/28/2022 Within the past 12 months, t he food you bought just didn't last and you didn't have money to get more. Never true 10/28/2022 Sex Assigned at Date Recorded Female 10/28/2022 10:54 AM EDT Job Start Date Occupation Industry Not on file Not on file Not on file documented as of this encounter Last Filed Vital Signs Vital Sign Reading Time Taken Comments Blood Pressure - - Pulse 73 10/28/2022 10:55 AM EDT Temperature 35.6 C (96 F) 10/28/2022 10:55 AM EDT Respiratory Rate - - Oxygen Saturation - - Inhaled Oxygen Concentration - - Weight 80.7 kg (178 lb) 10/28/2022 10:55 AM EDT Height 160 cm (5' 3") 10/28/2022 10:55 AM EDT Body Mass Index 31.53 10/28/2022 10:55 AM EDT documented in this encounter Patient Instructions * Patient Instructions* Jesica Vazquez RN - 10/28/2022 10:54 AM EDT Patient Instructions - Fall Prevention (This education is for all patients over 65 regardless of symptoms) Remember to take your current medications as prescribed. In order to prevent falls, you are encouraged to: Exercise Utilize assistive/adaptive devices Avoid multifocal lenses when walking Avoid hazards in home Maintain a regular toileting schedule Any questions please contact our office. Preventing Falls in the Home (This education is for all patients over 65 regardless of symptoms) As you get older, falls are more likely. Thats because your reaction time slows. Your muscles and joints may also get stiffer, making them less flexible. Illness, medications, and vision changes can also affect your balance. A fall could leave you unable to live on your own. To make your home safer, follow these tips: Floors Put nonskid pads under area rugs Remove throw rugs Replace worn floor coverings Tack carpets firmly to each step on carpeted stairs. Put nonskid strips on the edges of uncarpeted stairs Keep floors and stairs free of clutter and cords Arrange furniture so there are clear pathways Clean up any spills right away Bathrooms Install grab bars in the tub or shower Apply nonskid strips or put a nonskid rubber mat in the tub or shower Sit on a bath chair to bathe Use bathmats with nonskid backing Lighting Keep a flashlight in each room Put a nightlight along the pathway between the bedroom and the bathroom [employer]ore[employer] Patient Education Copyright 2008 - 2010 Loree except where otherwise noted Preventing Falls: Exercises to Improve Balance, Flexibility, Strength, and Staying Power (This education is for all patients over 65 regardless of symptoms) Certain types of exercises may help make you less likely to fall. Try the ones below. Or do other exercises that your healthcare provider suggests. Depending on your health, you may need to start slowly. Dont let that stop you. Even small amounts of exercise can help you. Be sure to talk to yourhealthcare provider before starting any exercise program. Improve Balance Many types of exercise can help improve balance. Daren chi and yoga are good examples. Heres another one to try. You can do it anytime and almost anywhere. Stand next to a counter or solid support. Push yourself up onto your tiptoes. Hold for 5 seconds. If you start to lose your balance, hold on to the counter. Rest and repeat 5 times. Work up to holding for 20 to 30 seconds, if you can. Increase Flexibility Being more flexible makes it easier for you to move around safely. Try exercises like the seated hamstring stretch. Sit in a chair and put one foot on a stool. Straighten your leg and reach with both hands down either side of your leg. Reach as far down your leg as you can. Hold for about 20 seconds. Go back to the starting position. Then repeat 5 times. Switch legs. Build Strength Resistance exercises help build strength. You can do them without equipment. Or you can use weights, elastic bands, or special machines. One such exercise is called the biceps curl. You can hold a 1 pound weight or even a can of soup. Do this exercise at least 3 times a week. Strive for everyday. Sit up straight in a chair. Keep your elbow close to your body and your wrist straight. Bend your arm, moving your hand up to your shoulder. Then slowly lower your arm. Repeat 5 times. Switch to the other arm. Build Your Staying Power Aerobic exercises make your heart and lungs stronger so you can keep moving longer. Walking and swimming are two of the best types of exercises you can do. Using a stationary bike is great, too. Find an aerobic exercise that you enjoy. Start slowly and build up. Even 5 minutes is helpful. Aimfor a goal of 30 minutes, at least 3 times a week. You dont have to do 30 minutes in one session. Break it up and walk a little throughout the day. More Helpful Tips Start easy. Slowly work up to doing more. Talk with your healthcare provider about the best exercises for you. Call senior centers or health clubs about exercise programs. If needed, have a family member watch you walk every so often to check your stability. Exercise with a friend. Choose an activity you both enjoy. Try exercises that you can do anytime, anywhere. Here are two examples. Have someone with you when you first try these: Practice walking by placing one foot right in front of the other. Stand up and sit down 10 times. Repeat this throughout the day. [employer] Patient Education Copyright 2008 [employer] except where otherwise noted. Preventing Falls: Moving Safely Using a Cane or Walker (This education is for all patients over 65 regardless of symptoms) Keep the cane away from your feet so you dont trip. A walking aid, such as a cane or walker, can help you stay more independent and avoid falls. Remember to keep your walking aid within easy reach when youre in a chair or in bed. And learn how to use it safely so you dont injure yourself. Using a Cane If you have a stronger side, hold the cane on that side. 17. Get your balance. 18. Move the cane and your weaker leg forward. 19. Support your weight on both the cane and your weaker side. 20. Step with your stronger leg. 21. Start again from step 1. If youre using a folding walker, be sure you know how to lock it open. Check that its locked open before each use. Using a Walker 7. Roll the walker (or lift it, if youre using one without wheels) forward about 12 inches. 8. Step forward with your weaker leg first. 9. Use the walker to help keep your balance. 10. Bring your other foot forward to the center of the walker. 11. Start again from step 1. Helpful Tips Check with your healthcare provider about the right walking aid to use. Ask about a walker with a seat attached. Check the tips of your cane or walker to make sure they have nonskid covers. Move slowly from room to room. Dont moctezuma. Sit down to get dressed. Use a godfrey pack or backpack to keep your hands free. Get help for jobs that mean climbing, even on a stepstool. [employer] Patient Education Copyright 2008 - 2010 [employer] except where otherwise noted. Urinary Incontinence Plan of Care Documentation: (This education is for all patients over 65 regardless of symptoms) Current medications reconciled. Patient encouraged to: Practice kegal exercises Provide education materials Use the restroom every 2 hours throughout the day Limit caffeine, alcohol, spicy foods and acidic foods Keep a bladder diary Limit fluid intake 3-4 hours before bed Lose weight Prevent constipation Take fluid pills at a time when you can get to the bathroom quickly Control sugar better if diabetic Limit fluid intake to 60 oz. per day Wear support stockings (TEDs)if you have edema Jesica Vazquez RN 10/28/2022 Kegel Exercises Kegel exercises dont require special clothing or equipment. Theyre easy to learn and simple to do. And if you do them right, no one can tell youre doing them, so they can be done almost anywhere. Your doctor, nurse, or physical therapist can answer any questions you have and help you get started. A Weak Pelvic Floor The pelvic floor muscles may weaken due to aging, and vaginal childbirth, injury, surgery, chronic cough, or lack of exercise. If the pelvic floor is weak, your bladder and other pelvic organs may sag out of place. The urethra may also open too easily and allow urine to leak out. Kegel exercises can help you strengthen your pelvic floor muscles so they can better support the pelvic organs and control urine flow. How Kegel Exercises Are Done Try each of the Kegel exercises described below. When youre doing them, try not to move your leg, buttock, or stomach muscles. While youre urinating, try to stop the flow of urine. Start and stop it as often as you can. Contract as if you were stopping your urine stream, but do it when youre not urinating. Tighten your rectum as if trying not to pass gas. Contract your anus, but dont move your buttocks. Helpful Hints Do your Kegels as often as you can. The more you do them, the faster youll feel the results. Pick an activity you do often as a reminder. For instance, do your Kegels every time you sit down. Tighten your pelvic floor before you sneeze, get up from a chair, cough, laugh, or lift. This protects your pelvic floor from injury and can help prevent urine leakage. Try to hold each Kegel for a slow count to five. You probably wont be able to hold them for thatlong at first, but keep practicing. It will get easier as your pelvic floor gets stronger. Eventually, special weights that you place in your vagina may be recommended to help make your Kegels even more effective. [employer]oree Patient Education Copyright 2008 - 2010 [employer] except where otherwise noted. Here are some helpful tips for your urinary incontinence: (This education is for all patients over 65 regardless of symptoms) Practice Kegel exercises Use the restroom every 2 hours throughout the day Limit caffeine, alcohol, spicy foods, and acidic foods Keep a bladder diary Limit fluid intake 3-4 hours before bed Lose weight Prevent constipation Take fluid pills at a time when can get to the bathroom quickly Control sugar better if diabetic Limit fluid intake to 60 oz. per day Any questions, please feel free to contact our office. Hi Ms. eLe, As your primary care physician, I know that regular visits with my patients who have several chronic conditions can go a long way in helping you stay healthy. Many times, the clinic team and I are in touch with you and/or other care team members between office visits to adjust medications, discuss any changes in your health, and review our care plan to make sure it is still meeting your needs. I am dedicated to helping you take a more active role in your overall care. It is important that there are resources available to you, so I created a personalized plan of care with a Health Calendar for you, which is included on the next page of this letter. Below is a list that summarizes your electronic health record: Health Maintenance Due: Health Maintenance Due Topic Date Due DTaP,Tdap,and Td Vaccines (1 - Tdap) Never done Mammogram Never done Colorectal Cancer Screening Never done DXA Scan 10/03/2021 Depression Screening, Annual for Pts 12 and Over 08/24/2022 Current Medication List: (as of 11/04/2017 (in office), Visit date not found (telemedicine) ) Current Outpatient Medications Medication Sig Dispense Refill ONETOUCH DELICA LANCETS 33G MISC e11.9 100 Each 5 aspirin enteric coated 81 MG TBEC Take 1 Tab by mouth daily. 100 Tab 3 Cholecalciferol (VITAMIN D3) 2000 units Capsule Take 1 Capsule by mouth in the morning. 30 Cap 5 Allopurinol 300 MG Oral Tablet (Zyloprim) Take 1 Tablet (300 mg) by mouth in the morning. 90 Tablet 1 OneTouch Verio In Vitro Strip (Glucose Blood) TEST BLOOD SUGAR UP TO FOUR TIMES A DAY. DX: E11.9 100 Strip 11 Metoprolol Succinate ER 50 MG Oral Tablet Extended Release 24 Hour (toPROL XL) Take 0.5 Tabletsby mouth in the morning and 0.5 Tablets before bedtime. 90 Tablet 3 Atorvastatin Calcium 80 MG Oral Tablet (Lipitor) Take 1 Tablet by mouth in the morning. 90 Tablet 3 Lisinopril 10 MG Oral Tablet (Prinivil) Take 1 Tablet by mouth in the morning. 90 Tablet 1 No current facility-administered medications for this visit. Current List of Allergies: (as of 11/04/2017 (in office), Visit date not found (telemedicine) ) Review of patient's allergies indicates: Allergen Reactions Baclofen Tachycardia AFib Most Recent Lab Results: Results for orders placed or performed in visit on 10/19/22 RENAL FUNCTION PANEL Result Value Ref Range BUN 24 (H) 6 - 20 mg/dL Creatinine 1.2 (H) 0.5 - 1.0 mg/dL Estimated Glomerular Filtration Rate 50 (L) >=60 mL/min Sodium 141 135 - 146 mmol/L Potassium 4.6 3.5 - 5.1 mmol/L Chloride 105 98 - 107 mmol/L CO2 27 22 - 32 mmol/L Anion Gap 9 7 - 15 mmol/L Glucose 137 (H) 70 - 120 mg/dL Calcium 9.4 8.4 - 10.2 mg/dL Albumin 4.3 3.8 - 5.0 g/dL Phosphorus 3.3 2.5 - 4.8 mg/dL HEMOGLOBIN A1C Result Value Ref Range Hemoglobin A1C 6.4 (H) 4.0 - 5.6 % Estimated Average Glucose 137 (H) <126 mg/dL ALBUMIN / CREATININE RATIO, URINE Result Value Ref Range Albumin, Random Urine <1.20 mg/dL Creatinine, Random Urine 172 mg/dL Albumin / Creatinine Ratio, Urine <7 <30 mg/g Creat LIPID PANEL WITH DIRECT LDL IF TG IS HIGH Result Value Ref Range Triglycerides 112 <=174 mg/dL Cholesterol 156 <200 mg/dL HDL Cholesterol 52 >49 mg/dL Non-HDL Cholesterol 104 <=159 mg/dL LDL Cholesterol 82 <=129 mg/dL AST Result Value Ref Range AST 26 10 - 35 U/L ALT Result Value Ref Range ALT 31 10 - 35 U/L Sincerely, Jose Michael MD 10/28/2022 [email or web address] Health Calendar (as of 11/04/2017 (in office), Visit date not found (telemedicine) ) Care needs Care needs Last completed Due next Diphtheria, tetanus & pertussis vaccines (1 - Tdap) --- Never done Mammogram --- Never done Colorectal cancer screening (colonoscopy 10 years, sigmoidoscopy 5 years, Cologuard 3 years, stool sample 1 year) --- Never done Bone Density 10/03/2018 10/03/2021 Flu vaccine (recommended) (Season Ended) 2021 01/21/2023 Dilated eye exam (by eye doctor or retinal camera) 02/04/2022 02/04/2023 A1C blood sugar test 10/19/2022 04/21/2023 Kidney Function Test 10/19/2022 04/21/2023 Yearly foot exam 04/29/2022 04/29/2023 Urine albumin/creatinine test 10/19/2022 10/20/2023 Lipid (cholesterol) disorder screening 10/19/2022 10/20/2027 As you look over the recommended services, be sure to check with your insurance company to determine what's covered. [facility] is a great tool that helps you review your medical record online, including test results, doctor notes and your health summary. You can also schedule appointments with me and other members of your care team, request prescription refills and ask for advice related to your medical conditions at [email or web address]. documented in this encounter Progress Notes * Jesica Vazquez RN - 10/28/2022 11:04 AM EDT AD8 Dementia Screening Interview Person answering questions: patient Remember, "Yes, a change" indicates that there has been a change in the last several years caused by cognitive (thinking and memory) problems 1. Problems with judgement (eg: problems making decisions, bad financial decisions, problems with thinking). No (0) 2. Less interest in hobbies/activities. No (0) 3. Repeats the same things over and over (questions, stories, or statements). No (0) 4. Trouble learning how to use a tool, appliance, or gadget (eg: VCR, computer, microwave, remote control). No (0) 5. Forgets correct month or year. No (0) 6. Trouble handling complicated financial affairs (eg: balancing checkbook, income taxes, paying bills). No (0) 7. Trouble remembering appointments. No (0) 8. Daily problems with thinking and/or memory. No (0) TOTAL AD8: 0 - AD8 Dementia Screening Score The final score is a sum of the number items marked "Yes, A Change". 0 - 1: Normal cognition; 2 or greater: Cognitive impairments is likely to be present - further testing required Adult Annual Wellness Visit: Sindi Lee is a 72 year old female who presents for an Adult Annual Wellness Visit. Depression Screening: Did the patient complete the screening questionnaire for Depression? Yes Is the patient's total score for Depression 15 or greater? No, no further intervention needed, unless requested by patient. Did the patient answer positively to the suicide question? No, no further intervention needed, unless requested by patient. In general, compared to other people your age, what would you say that your health is? Good Ht Readings from Last 1 Encounters: 10/28/22 1.6 m (5' 3") Wt Readings from Last 1 Encounters: 10/28/22 80.7 kg (178 lb) Body Mass Index: BMI Greater than 30 Body mass index is 31.53 kg/m. BP Readings from Last 1 Encounters: 10/28/22 122/70 Medical/Surgical/Family History Reviewed: Yes Past Medical History: Diagnosis Date Benign hypertension with CKD (chronic kidney disease) stage III (HCC) Cutaneous skin tags neck DM type 2, goal HbA1c < 7% (HCC) 10/20/2017 glucose 297 Encounter for hepatitis C screening test for low risk patient 06/08/2018 negative Gout 10/20/2017 uric acid 11.2 Gout of left ankle Herpes simplex virus infection HTN, goal below 140/90 Hyperlipidemia LDL goal <100 Screening for diabetes mellitus 02/25/2001 glucose 117 Screening for lipoid disorders 02/25/2001 chol 276/ ldl 5.63/ trig 192/ hdl 49 Tachycardia Type 2 diabetes mellitus with stage 3a chronic kidney disease (HCC) 10/24/2017 hgba1c 6.7 Type 2 DM with CKD stage 3 and hypertension (HCC) Past Surgical History: Procedure Laterality Date ADULT ECHOCARDIOGRAM 04/30/2021 normal LV size and function, EF 55% US RENAL 09/15/2022 Normal sonographic evaluation of the kidneys. aorta not dilated VAGINAL DELIVERY ONLY 07/27/1971 Vaginal Delivery Family History Problem Relation Age of Onset Heart Disorder Mother Diabetes Mother Heart Disorder Father Has patient ever had cancer? No Social History Tobacco Use Smoking status: Never Smokeless tobacco: Never Substance Use Topics Alcohol use: No Vaping/E-Cigarette Use Vaping/E-Cigarette Use Never User Vaping/E-Cigarette Substances Vaping/E-Cigarette Devices Tobacco/Alcohol screening completed today? Yes Hospital Care: Admissions (within the last year): Not Applicable ER within 30 days: No Does the patient have an Advance Directives/Living Will? No. Does the patient want information? Yes. Information given to patient Last Physical Exam: Last physical exam: 10/28/2022 Does patient see primary provider regularly? Yes Does patient see other providers? Yes, Specialist Patient Care Team updated? Yes Review of patient's allergies indicates: Allergen Reactions Baclofen Tachycardia AFib Immunization History Administered Date(s) Administered COVID-19 mRNA, LNP-s, No Preserve, 2-Dose Series (Moderna) 06/22/2020, 08/02/2020 Covid-19 Mrna, Lnp-s, No Preserve, Booster (Moderna) 04/13/2021, 09/29/2021 Covid-19, Mrna, Lnp-s, Pf, Bivalent, 30 Mcg, IM, 12 yrs and above (Pfizer) 04/27/2022 Pneumococcal Conjugate Vacc, 13 Valent (Prevnar) 11/15/2018 Pneumococcal Polysaccharide PPV23 (Pneumovax) 11/21/2019 Seasonal Influenza, Quadrivalent Hd, 65+ Yrs 02/02/2020, 02/26/2022 Seasonal Influenza, Quadrivalent, No Preserve, 6 Mons & Above, IM 03/13/2018 Seasonal Influenza, Quadrivalent, No Preserve, Adjuvanted, 65+ Yrs, IM 02/02/2020, 2021 Seasonal Influenza, Quadrivalent, No Preserve, IM 03/05/2015 Seasonal Influenza, Split, IIV3, No Preserve, Inj 03/07/2010 Seasonal Influenza, Split, IIV3, With Preserve, Inj 02/21/2016 Seasonal Influenza, Trivalent, Adjuvanted, 65+ yrs 01/23/2019 Seasonal Influenza, Trivalent, High Dose, No Preserve, IM 2017 Varicella Zoster Vaccine (Adult) 09/15/2016 Zoster Vaccine Recombinant (Shingrix) 06/22/2019, 12/03/2019 Current Outpatient Medications Medication Sig Dispense Refill ONETOUCH DELICA LANCETS 33G MISC e11.9 100 Each 5 aspirin enteric coated 81 MG TBEC Take 1 Tab by mouth daily. 100 Tab 3 Cholecalciferol (VITAMIN D3) 2000 units Capsule Take 1 Capsule by mouth in the morning. 30 Cap 5 Allopurinol 300 MG Oral Tablet (Zyloprim) Take 1 Tablet (300 mg) by mouth in the morning. 90 Tablet 1 OneTouch Verio In Vitro Strip (Glucose Blood) TEST BLOOD SUGAR UP TO FOUR TIMES A DAY. DX: E11.9 100 Strip 11 Metoprolol Succinate ER 50 MG Oral Tablet Extended Release 24 Hour (toPROL XL) Take 0.5 Tabletsby mouth in the morning and 0.5 Tablets before bedtime. 90 Tablet 3 Atorvastatin Calcium 80 MG Oral Tablet (Lipitor) Take 1 Tablet by mouth in the morning. 90 Tablet 3 Lisinopril 10 MG Oral Tablet (Prinivil) Take 1 Tablet by mouth in the morning. 90 Tablet 1 No current facility-administered medications for this visit. 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 Yes Patient takes medications as prescribed? Yes Patient manages own medications: Yes Patient uses a pill box? Yes, refill(s) completed by self Dental Exam: Yes: Every Year Eye Screening: Yes: Every yearly Are you having trouble with hearing? No Do you use an assistive device to help your hearing? No Exercise Screening: does not exercise regularly Nutrition Assessment: Eats three meals a day Pain Screening: Are you having any pain? Yes. Pain Scale: right knee is good until walking, shots do help with the pain Sleep Screening Tool 'STOP': 1. Do you snore? Yes 2. Do you feel fatigued during the day? Yes 3. Do you wake up feeling like you haven't slept? No 4. Have you been told you stop breathing at night? No 5. Do you gasp for air or choke while sleeping? No 6. Have you been told you have Sleep Apnea? No 7. Do you have high blood pressure or are on medication(s) to control high blood pressure? Yes SCORE: If you check YES to two or more questions, make a referral for Obstructive Sleep Apnea Pt declined Patient and Caregiver Support System: Patient lives with a spouse Means of Transportation: Drives. Not a concern. Patient lives in Two Story - How many stairs: 12 with railings Community Resources: Not Applicable Functional Status and ADL Skills: Has patient ever had an amputation? No Functional Assessment: 100- Normal, no complaints, no evidence of disease Ambulation: Patient ambulates without assistive device. Independent Dressing: Gets clothes and dresses without any assistance: Independent Able to move freely in chair or bed including turning over: Independent Repositioning (bed or chair): Not applicable Transfers: Independent Toileting: Goes to bathroom, uses toilet, arranges clothes and returns without any assistance: Independent Toileting: continent of bladder and continent of bowel Feeding: Self Bathing: Self; walk in shower, encourage grab bars Requires minimal assistance with ADLs. Instrumental ADL's: Shopping: Minimal Assistance Housekeeping: Minimal Assistance Handling Finances: Independent DME Vendor Name: Not Applicable Fall Risk Assessment: Can the patient demonstrate that she can stand from a sitting position? Yes Has the patient had a fall within the last 6 months? No Does the patient have a problem with her gait or balance? Yes Does the patient take 4 or more prescription medicines? Yes Does the patient use sedatives or narcotics? No Fall Risk Factors Present: Uses more than 4 medications Balance or gait disturbances Visually impaired Older than age 70 Ttk-Rf-urs-Go Test: Time began at 1100. Patient stood from sitting position and walked approximately 10 feet, returned and sat down. Total time for ejy-xb-ogm-go test was 10 seconds. Wqb-Py-ckt-Go Test completed? Yes Gender Specific Preventative Plan: Health Maintenance Topic Date Due DTaP,Tdap,and Td Vaccines (1 - Tdap) Never done Mammogram Never done Colorectal Cancer Screening Never done DXA Scan 10/03/2021 Depression Screening, Annual for Pts 12 and Over 08/24/2022 DIABETES-EYE EXAM 02/04/2023 HbA1c 04/21/2023 GFR 04/21/2023 CKD HGB USE SMARTSET 73267 04/22/2023 DIABETES-FOOT EXAM 04/29/2023 Albumin/Creatinine Ratio 10/20/2023 CKD PHOS USE SMARTSET [id number] 10/20/2023 Lipid Panel 10/20/2027 Influenza Vaccine (FLU shot) Completed Zoster Vaccines Completed Pneumococcal Vaccine: 65+ Years Completed COVID-19 Vaccine Completed Hepatitis B Aged Out MENINGOCOCCAL (MENACTRA/MENVEO) Aged Out GARDASIL-HPV IMMUNIZATION SERIES Aged Out Follow Up/ Referrals/Handouts: Depression screening - completed, pt does have h/o anxiety and does not do well with medical tests. Functional assessment - lives with spouse and does well Falls Risk screening - discussed Exercise screening - encouraged to increase but pt has a bad knee and needs to really think about aknee replacement. Nutrition assessment -. Education Provided and Handouts Provided Pain screening - knee is "bone on bone" Incontinence screening - no concerns today Patient has been verbally educated on the need or importance of Breast Cancer Screening, Cholesterol, Colon Cancer Screening, Dexa Scan, Diabetic Eye Exam, GFR, Hemoglobin A1c and Immunizations: flu,covid,shingles Pt has completed the covid vaccines: Yes, Including the bivalent Routine general medical examination at a health care facility (Primary) Risk and functional assessment Benign hypertension with CKD (chronic kidney disease) stage III (HCC) - Med reconciliation completed and compliance discussed. - pt to continue present medications. BP Readings from Last 3 Encounters: 10/28/22 122/70 09/13/22 116/86 07/01/22 136/74 Chronic anxiety - Med reconciliation completed and compliance discussed. - pt to continue present medications. -pt states she has a difficulty getting testing done Pt declined, colonoscopy, cologuard, dexa, and mammogram -talked to her at length and she does have my direct # if she changes her mind. Hyperlipidemia LDL goal <100 - Med reconciliation completed and compliance discussed. - pt to continue present medications. Lab Results Component Value Date/Time LDL CHOLESTEROL (CALCULATED) - [facility] 82 10/19/2022 07:48 AM LDL CHOLESTEROL (CALCULATED) - [facility] 79 04/28/2020 02:17 PM LDL CHOLESTEROL (DIRECT MEASURE) - [facility] 100 04/22/2022 07:38 AM LDL CHOLESTEROL (DIRECT MEASURE) - [facility] NOT APPLICABLE 04/28/2020 02:17 PM Paroxysmal atrial fibrillation (HCC) - Med reconciliation completed and compliance discussed. - pt to continue present medications. Primary hypertension - Med reconciliation completed and compliance discussed. - pt to continue present medications. Type 2 diabetes mellitus with hemoglobin A1c goal of less than 7.0% (HCC) - Med reconciliation completed and compliance discussed. - pt to continue present medications. Hemoglobin AIC Results: Lab Results Component Value Date/Time HEMOGLOBIN A1C - [facility] 6.4 (H) 10/19/2022 07:48 AM HEMOGLOBIN A1C - [facility] 6.3 (H) 04/22/2022 07:38 AM HEMOGLOBIN A1C - [facility] 6.6 (H) 10/20/2021 07:52 AM HEMOGLOBIN A1C - [facility] 6.2 (H) 04/28/2020 02:17 PM HEMOGLOBIN A1C - [facility] 6.2 (H) 10/23/2019 08:14 AM HEMOGLOBIN A1C - [facility] 6.9 (H) 03/13/2019 07:54 AM Vitamin D deficiency - Med reconciliation completed and compliance discussed. - pt to continue present medications. Information given on Living will and adv directives Follow Up: Return in 1 year (on 10/29/2023) for 12 month Subsequent Adult Wellness Visit. | For: 12 month Subsequent Adult Wellness Visit | Check-out note: 12 month Subsequent Adult Wellness Visit Would patient like to schedule next AWV visit? Yes Jesica Vazquez RN documented in this encounter Miscellaneous Notes * Pt Handout (on AVS) - Jesica Vazquez RN - 10/28/2022 11:38 AM EDT Images from the original note were not included. Sleep Facts! - Video Pop Quiz: Sleep Facts! To view the video go to this web address: https://[email or web address].[email or web address] Or, scan this QR code with your smart phone 2019 [employer]. * Pt Handout (on AVS) - Jesica Vazquez RN - 10/28/2022 11:37 AM EDT Images from the original note were not included. 53425 Progressive Relaxation Your body needs relaxation to reduce stress and calm the [id number] response. It helps to planfor about 20 minutes of relaxation every day when you can take time for yourself. Sit or lie comfortably, limiting distractions like phones. Put on some soft music or simply sit in silence. Then incorporate the progressive relaxation technique below. How to do progressive relaxation Progressive relaxation helps your whole body relax. To try this technique, follow these steps: 1. Find a quiet room. Sit in a comfortable chair or lie on your back. 2. Breathe in deeply to a slow count of 5. Feel your belly, chest, and back expand. Breathe out slowly to a count of 5. Do this for several minutes. 3. After a few minutes, breathe in deeply again, but this time tighten the muscles in your feet. Notice how it feels. Hold the tension for 3 seconds. 4. Breathe out while relaxing the tightened muscles. Notice how relaxed you feel. 5. Repeat steps 3 and 4 with another muscle group. You can move from your feet, calves, and thighs to your stomach, arms, and hands. Remember the 4 A?s Avoid a stressor. For example, if someone is smoking when you?re trying to quit, leave the room. Alter how you deal with a stressor. For example, let the answering machine pick pulling machine tender if a constantly ringing phone is a stressor. Accept a stressor you can?t change, like a job loss, by knowing that your feelings are normal. Adapt to some stressors. For example, when starting a new exercise program, instead of focusing on how hard it will be, think how good you will feel. Last Reviewed Date: 08/21/202119995823-1890 [employer]. All rights reserved. This information is not intended as a substitute for professional medical care. Always follow your healthcare professional's instructions. * Pt Handout (on AVS) - Jesica Vazquez RN - 10/28/2022 11:36 AM EDT Images from the original note were not included. 72570 Preventing Osteoporosis: Meeting Your Calcium Needs Your body needs calcium to build and repair bones. But it can't make calcium on its own. That's whyit's important to eat calcium-rich foods. Some foods are naturally rich in calcium. Others have calcium added (fortified). It's best to get calcium from the foods you eat. But if you can't get enough, you may want to take calcium supplements. To meet your daily calcium needs, try the foods listed below. Dairy Fish & beans Other sources Source Calcium (mg) per serving Source Calcium (mg) per serving Source Calcium (mg) per serving Low-fat yogurt, plain 415 mg/8 oz. Sardines, [place], canned, with bones 351 mg/3 oz. Oatmeal, instant, fortified 215 mg/1 cup Nonfat milk 302 mg/1 cup [place], sockeye, canned, with bones 239 mg/3 oz. Tofu made with calcium sulfate 204 mg/3 oz. Low-fat milk 297 mg/1 cup Soybeans, fresh, boiled 131 mg/1/2 cup Collards 179 mg/1/2 cup Syrian cheese 272 mg/1 oz. White beans, cooked 81 mg/1/2 cup Cymro muffin, whole wheat 175 mg/1 muffin Cheddar cheese 205 mg/1 oz. [place] beans, cooked 79 mg/1/2 cup Kale 90 mg/1/2 cup Ice cream strawberry 79 mg/1/2 cup [place], navel 56 mg/1 medium Note: Calcium levels may vary depending on brand and size. Daily calcium needs 14 to 18 years old: 1,300 mg 19 to 30 years old: 1,000 mg 31 to 50 years old: 1,000 mg 51 to 70 years old, women: 1,200 mg 51 to 70 years old, men: 1,000 mg or nursin to 18 years old: 1,300 mg, 19 to 50 years old: 1,000 mg Older than 70 (women and men): 1,200 mg Last Reviewed Date: 03/23/202119995232-0598 [employer]. All rights reserved. This information is not intended as a substitute for professional medical care. Always follow your healthcare professional's instructions. * Pt Handout (on AVS) - Jesica Vazquez RN - 10/28/2022 11:36 AM EDT Images from the original note were not included. 33078 Diabetes: Learning About Serving and Portion Sizes Servings and portions. What?s the difference? These terms can be very confusing. But learning to measure serving sizes can help you figure out how many carbohydrates (carbs) and other foods you eat each day. They're also powerful tools for managing your weight. A good rule of thumb: Devote half your plate to vegetables and green salad. Split the other half between protein and starchy carbohydrates. Fruit makes a good dessert. Servings and portions Many different words are used to describe amounts of food. If your healthcare provider uses a term you?re not sure of, don?t be afraid to ask. It helps to know the difference between servings and portions: A serving size. This is a fixed size. Food producers use this term to describe their products. For example, the label on a cereal box could say that 1 cup of dry cereal = 1 serving. A portion (also called a helping). This is how much you eat or how much you put on your plate cheyenne meal. For instance, you might eat 2 cups of cereal at breakfast. Watching serving sizes The portion you choose to eat (such as 2 cups of cereal) may be more than 1 serving as listed on the food label (such as 1 cup of cereal). That?s why it helps to measure or weigh the food you eat. Because the food label values are based on servings, you?ll need to know how many servings you eat at 1 sitting. When you?re planning for a snack or a meal, keep servings in mind. If you don?t have measuring cupsor a scale handy, there are ways to figure out serving sizes. For instance, you can compare the food to the size of your hand (see pictures below). Here are some general tips: About 3 ounces of meat fits in the palm of your hand 1 cup of food is about the size of your fist An open hand holds about 1 to 2 ounces of nuts Ounces: 2 to 3 ounces is about the size of your palm. 1 cup: 1 cup (or a medium-sized piece) is about the size of your fist. 1/2 cup: 1/2 cup is about the size of your cupped hand. Managing portion sizes If your weight is a concern, reducing your portions can help. A portion is the amount of each type of food on your plate. You can eat more than 1 serving of a food at once. But to keep from eating too much at 1 meal, learn how to manage your portions. Portion control will also help with blood sugarmanagement. Last Reviewed Date: 05/23/202119994925-3355 [employer]. All rights reserved. This information is not intended as a substitute for professional medical care. Always follow your healthcare professional's instructions. * Pt Handout (on AVS) - Jesica Vazquez RN - 10/28/2022 11:35 AM EDT Images from the original note were not included. 17644 5 Steps for Eating Healthier Changing the way you eat can improve your health. It can lower your cholesterol and blood pressure,and help you stay at a healthy weight. Your diet doesn?t have to be bland and boring to be healthy.Just watch your calories and follow these steps: Step 1. Eat fewer unhealthy fats Choose more fish and lean meats instead of fatty cuts of meat. Skip butter and lard, and use less margarine. Replace these with healthier fats, such as olive, canola, or avocado oils. Pass on foods that have palm, coconut, or partially hydrogenated oils. Eat fewer high-fat dairy foods like cheese, ice cream, and whole milk. Get a heart-healthy cookbook and try some new recipes. Step 2. Go light on salt Keep the saltshaker off the table. Limit high-salt ingredients, such as soy sauce, bouillon, and garlic salt. Instead of adding salt when cooking, season your food with herbs, spices, and other flavorings. Try lemon, garlic, onion, vinegar, or salt-free herb seasonings. Limit convenience foods, such as boxed or canned foods and restaurant food. Read food labels and choose lower-sodium options. Buy fresh, frozen, or canned vegetables that don't have added salt. Step 3. Limit sugar Pause before you add sugars to pancakes, cereal, coffee, or tea. This includes white and brown table sugar, syrup, honey, and molasses. Cut your usual amount by half. Swap out sugar-filled soda and other drinks. Buy sugar-free or low-calorie beverages. Remember, water is always the best choice. Try adding lemon juice to water for extra flavor. Read labels and choose foods with less added sugar. Keep in mind that dairy foods and foods withfruit will have some natural sugar. Cut the sugar in recipes by 1/3 to 1/2. Boost the flavor with extracts like almond, vanilla, or orange. Or add spices such as cinnamon or nutmeg. Step 4. Eat more fiber Eat fresh fruits and vegetables every day. Boost your diet with whole grains. Go for oats, whole-grain rice, and bran. Add beans and lentils to your meals. Drink more water to match your fiber increase to help prevent constipation. Step 5. Pay attention to serving sizes Remember that a serving size is a standard measurement. It will let you track the amount of fat,calories, and other nutrients in the food you eat. Read the Nutrition Facts label on packaged foods to learn their serving sizes. Use serving sizes to assess how much food you put on your plate. Pay attention to your portions.How many servings are you eating? Keep in mind that your needs may change if you?re more active or less active, or if you have other factors that change your calorie needs. Use your hand to help you measure serving sizes. For example: o 1 teaspoon: This is about the size of the first joint of your thumb. o 1 tablespoon: This is about the size of the first 2 joints of your thumb. o 1 ounce: This is about what you can fit in your cupped hand. o 2 to 3 ounces: This is about the size of the palm of your hand. o cup: This is also about what you can fit in your cupped hand. o 1 cup: This is about the size of your fist. Last Reviewed Date: 04/22/202219996747-3795 [employer]. All rights reserved. This information is not intended as a substitute for professional medical care. Always follow your healthcare professional's instructions. documented in this encounter Plan of Treatment Upcoming Encounters Date Type Specialty Care Team Description 01/04/2023 Office Visit Cardiology Bon Cespedes, DO [address] [place] [id number] 04/21/2023 Office Visit Orthopedics Jose Rodríguez PA-C [address] [place] [id number] 04/28/2023 Office Visit Orthopedics Jose Rodríguez PA-C [address] [place] [id number] 05/02/2023 Office Visit Family Medicine Jose Michael MD [address] [place] [address] [place] [id number] 05/05/2023 Office Visit Orthopedics Jose Rodríguez PA-C [address] [place] [id number] 09/19/2023 Office Visit Dermatology Kristy Garcia PA-C [address] [place] [address] [place] [id number] 02/01/2024 Nurse Only Ancillary José Antonio Nurse Annual Wellness [address] [place] [address] [place] [id number] Health Maintenance Due Date Last Done Comments DTaP,Tdap,and Td Vaccines (1 - Tdap) 1968 Mammogram 1989 Cologuard 1994 Colonoscopy 1994 Colorectal Cancer Screening 1994 Fecal Occult Blood Test 1994 Sigmoidoscopy 1994 DXA Scan 10/03/2021 10/03/2018 Depression Screening, Annual for Pts 12 and Over 08/24/2022 08/24/2021 DIABETES-EYE EXAM 02/04/2023 02/04/2022, , 01/24/2020, Additional history exists GFR 04/21/2023 10/19/2022, 12/0 05/2021, 10/20/2021, Additional history exists HbA1c 04/21/2023 10/19/2022, 12/0 05/2021, 10/20/2021, Additional history exists CKD HGB USE SMARTSET 42097 04/22/202304/22, 10/20/2021, 10/24/2020, Additional history exists DIABETES-FOOT EXAM 04/29/2023 04/29/2022, 0 11/21/2019, 11/21/2019, Additional history exists Albumin/Creatinine Ratio 10/20/2023 023, 09/13/2022, 10/20/2021, Additional history exists CKD PHOS USE SMARTSET 49316 10/20/202309/22, 10/20/2021, 10/24/2020, Additional history exists Lipid Panel 10/20/2027 10/19/2022, 12/0 05/2021, 04/21/2021, Additional history exists Pneumococcal Vaccine: 65+ Years Completed 11/21/2019, 11/15/2018 Zoster Vaccines Completed 12/03/2019, 05/25, 09/15/2016 Influenza Vaccine (FLU shot) Completed 11/2021, 2021, 02/02/2020, Additional history exists COVID-19 Vaccine Completed 04/27/2022, 02/2022, 04/13/2021, Additional history exists GARDASIL-HPV IMMUNIZATION SERIES Aged Out No longer eligible based on patient's age to complete this topic Hepatitis B Aged Out No longer eligi ble based on patient's age to complete this topic MENINGOCOCCAL (MENACTRA/MENVEO) Aged Out No longer eligible based on patient's age to complete this topic documented as of this encounter Medical Devices Not on filedocumented as of this encounter Visit Diagnoses Diagnosis Routine general medical examination at a health care facility- Primary Risk and functional assessment Screening for unspecified condition Benign hypertension with CKD (chronic kidney disease) stage III (HCC) 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 IV, or unspecified Chronic anxiety Anxiety state, unspecified Hyperlipidemia LDL goal <100 Other and unspecified hyperlipidemia Paroxysmal atrial fibrillation (HCC) Atrial fibrillation Primary hypertension Unspecified essential hypertension Type 2 diabetes mellitus with hemoglobin A1c goal of less than 7.0% (HCC) Vitamin D deficiency Unspecified vitamin D deficiency documented in this encounter Care Teams Valet Relationship Specialty Start Date End Date Jose Michael MD [address] [place] [address] [place] [id number] PCP - General 03/24/1998 documented as of this encounter
--- OUTSIDE RECORDS SUMMARY | 2023-04-23 10:10 | External Medical Summary | Summary of Care ---
Author Name Unknown Organization [facility] Address [address] [place] [address] Phone [phone] Care Team Providers Care Inspector Receiving Name Role Phone Jose Michael MD Primary Care Provider Reason for Visit * Reason Onset Date Comments MyCode Nonconsent - Not interested at this time 03/24/2023 Encounter Details Date Type Department Care Team (Late st Contact Info) Description 03/24/2023 Orders Only Outcomes Research Department [address] [place] [address] Alicia Randhawa CHRA MyCode Nonconsent Documentation Allergies Active Allergy Reactions Criticality Noted Date Comments Baclofen Tachycardia 05/05/2021 AFib documented as of this encounter (statuses as of 03/24/2023) Medications Medication Sig Dispensed Refills Start Date End Date Status GORGE EVANS 33G MISCIndications:DM type 2, goal HbA1c < 7% ([facility]) e11.9 100 Each 5 11/03/2017 Active aspirin enteric coated 81 MG TBECIndications:DM type 2, goal HbA1c < 7% ([facility]),Benign hypertension with CKD (chronic kidney disease) stage [...] 06/09/2022 Active Allopurinol 300 MG Oral Tablet (Zyloprim)Indicatio ns: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 DX: E11.9 100 Strip 11 03/19/2023 Active Apixaban 5 MG Oral Tablet (Eliquis) Take 1 Tablet by mouth in the morning and 1 Tablet before bedtime. 0 03/21/2023 03/24/2023 Discontinued (Refill) Metoprolol Succinate ER 50 MG Oral Tablet Extended Release 24 Hour (toPROL XL)Indications:SVT (supraventricular tachycardia) Take 1 Tablet by mouth in the morning and 1 Tablet before bedtime. 0 03/21/2023 03/24/2023 Discontinued (Refill) Lisinopril 5 MG Oral Tablet (Prinivil)Bryanttio ns:Benign hypertension with CKD (chronic kidney disease) stage III ([facility]),Primary hypertension,Type 2 diabetes mellitus with hemoglobin A1c goal of less than 7.0% ([facility]),Chronic kidney disease, stage 3a ([facility]) Take 1 Tablet by mouth in the morning. 0 03/21/2023 03/24/2023 Discontinued (Refill) documented as of this encounter (statuses as of 03/24/2023) Active Problems Problem Noted Date Diagnosed Date [...] as of this encounter (statuses as of 03/24/2023) Resolved Problems Problem Noted Date Diagnosed Date [...] as of this encounter (statuses as of 03/24/2023) Immunizations Name Administration Dates Next Due COVID-19 [...] as of this encounter Progress Notes * Alicia Randhawa CHRA - 03/24/2023 10:41 AM EDT MyCode Nonconsent Documentation Sindi Lee was approached in the clinic regarding participation in the MyCode Project and did not consent. documented in this encounter Plan of Treatment Upcoming Encounters Date Type Department Care Team (Late st Contact Info) Description 03/28/2023 11:00 AM EST Nurse Only Ancillary [address] [place] [address] [place], Nurse [address] [place] [address] 04/21/2023 10:30 AM EST Office Visit Orthopaedics [address] [place] [address] Jose Rodríguez PA-C [address] [place] [address] [place] [address] 04/28/2023 10:30 AM EST Office Visit [address] [place] [address] Jose Rodríguez PA-C [address] [place] [address] [place] [address] 05/02/2023 10:20 AM EST Office Visit Family Medicine [address] [place] [phone] Jose Michael MD [address] [place] [address] [place] [address] 05/05/2023 10:30 AM EST Office Visit Orthopa[facility] [address] [facility] [place] [address] Jose Rodríguez PA-C [address] [place] [address] [place] [address] 05/12/2023 1:30 PM EST Office Visit Cardiology [address] [place] [address] Markell Mittal PA-C [address] [place] [address] 09/19/2023 10:20 AM EDT Office Visit Dermatology [address] [place] [address] Kristy Garcia PA-C [address] [place] [address] [place] [address] 02/01/2024 11:00 AM EDT Nurse Only Ancillary [address] [place] [address] [place], Nurse Annual Wellness [address] [place] [address] [place] [address] Health Maintenance Due Date Last Done Comments DTaP,Tdap,and Td Vaccines (1 - Tdap) 1968 Mammogram 1989 Cologuard 1994 Colonoscopy 1994 Colorectal Cancer Screening 1994 Fecal Occult Blood Test 1994 Sigmoidoscopy 1994 Hepatitis B (1 of 3 - Risk 3-dose series) 2009 DXA Scan 10/03/2021 10/03/2018 Diabetic Eye Exam 02/04/2023 02/04/2022, , 01/24/2020, Additional history exists GFR 04/21/2023 10/19/2022, 120 05/2021, 10/20/2021, Additional history exists HbA1c 04/21/2023 10/19/2022, 120 05/2021, 10/20/2021, Additional history exists CKD HGB USE SMARTSET 52936 04/22/202304/22, 10/20/2021, 10/24/2020, Additional history exists Diabetic Foot Exam 04/29/2023 04/29/2022, 0 11/21/2019, 11/21/2019, Additional history exists Albumin/Creatinine Ratio 10/20/2023 023, 09/13/2022, 10/20/2021, Additional history exists CKD PHOS USE SMARTSET 19408 10/20/202309/22, 10/20/2021, 10/24/2020, Additional history exists Depression Screening 10/29/2023 10/28/2022 Lipid Panel 10/20/2027 10/19/2022, 120 05/2021, 04/21/2021, [...] filedocumented as of this encounter Care Teams Inspector Receiving Relationship Specialty Start Date End Date Jose Michael MD [address] [place] [address] [place] [address] PCP - General 03/24/1998 documented as of this encounter
--- OUTSIDE RECORDS SUMMARY | 2023-04-23 10:10 | External Medical Summary | Summary of Care ---
Author Name Unknown Organization [facility] Address [address] [place] [address] Phone [phone] Care Team Providers Care National Sales Executive Name Role Phone Jose Michael MD Primary Care Provider + [phone] Reason for Visit * Reason Comments Hospital Follow-Up Encounter Details Date Type Department Care Team (Late st Contact Info) Description 03/24/2023 10:40 AM EDT Office Visit Family Medicine [address] [phone] Jose Michael MD [address] [place] [address] [place] [address] Paroxysmal atrial fibrillation (HCC)*; Benign hypertension with CKD (chronic kidney disease) stage III (HCC); Chronic kidney disease, stage 3a (HCC); Hyperlipidemia LDL goal <100; Benign hypertension with stage 3a chronic kidney disease ([facility]); Type 2 diabetes mellitus with hemoglobin A1c goal of less than 7.0% ([facility]); Primary hypertension; SVT (supraventricular tachycardia) Allergies Active Allergy Reactions Criticality Noted Date Comments Baclofen Tachycardia 05/05/2021 AFib documented as of this encounter (statuses as of 03/24/2023) Medications Medication Sig Dispensed Refills Start Date End Date Status GORGE EVANS 33G MISCIndications:DM type 2, goal HbA1c < 7% (HCC) e11.9 100 Each 5 11/03/2017 Active aspirin [...] 06/09/2022 Active Allopurinol 300 MG Oral Tablet (Zyloprim)Indicati ons: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 DX: E11.9 100 Strip 11 03/19/2023 Active Lisinopril 10 MG Oral Tablet (Prinivil)Indicati ons:Benign hypertension with CKD (chronic kidney disease) stage III ([facility]),Chronic kidney disease, stage 3a (HCC),Type 2 diabetes mellitus with hemoglobin A1c goal of less than 7.0% ([facility]),Primary hypertension One daily 90 Tablet [...] 03/24/2023 Active Apixaban 5 MG Oral Tablet (Eliquis) Take 1 Tablet by mouth in the morning and 1 Tablet before bedtime. 0 03/21/2023 03/24/2023 Discontinued (Refill) Metoprolol Succinate ER 50 MG Oral Tablet Extended Release 24 Hour (toPROL XL)Indications:SVT (supraventricular tachycardia) Take 1 Tablet by mouth in the morning and 1 Tablet before bedtime. 0 03/21/2023 03/24/2023 Discontinued (Refill) Lisinopril 5 MG Oral Tablet (Prinivil)Indicati ons:Benign hypertension with CKD (chronic kidney disease) stage III (HCC),Primary hypertension,Type 2 diabetes mellitus with hemoglobin A1c goal of less than 7.0% (HCC),Chronic kidney disease, stage 3a (HCC) Take 1 [...] Sign Reading Time Taken Comments Blood Pressure 118/72 03/24/2023 10:40 AM EDT Pulse 67 03/24/2023 10:40 AM EDT Temperature 36.3 C (97.3 F) 03/24/2023 10:40 AM E DT Respiratory Rate 16 03/24/2023 10:40 AM EDT Oxygen Saturation - - Inhaled Oxygen Concentration - - Weight 79.8 kg (176 lb) 03/24/2023 10:40 AM EDT Height - - Body Mass Index 31.18 10/28/2022 10:55 AM EDT documented in this encounter Progress Notes * Jose Michael MD - 03/24/2023 10:35 AM EDT Sindi was admitted to [facility] 03/20 with atrial flutter and 2:1 block. She converted to NSR with IV Lopressor. Bernardo added, Lopressor increased, seen by Dr Dee, discharged 03/21. She has generalized anxiety as well. She has upcoming appts with Cardiology and id in April. She is still taking the lisinopril 10 mg. She says she was dizzy on the Lopressor so that is why it is BID. She can tell when her heart takes off. She is not happy with needing a blood thinner Health Maintenance addressed. Had the Coronovirus vaccine, 5 doses. Other shots good, no mammogram or colonoscopy Past Medical History: Diagnosis Date Benign hypertension [...] dilated VAGINAL DELIVERY ONLY 07/27/1971 Vaginal Delivery Review of patient's allergies indicates: Allergen Reactions Baclofen Tachycardia AFib Social History Socioeconomic History Marital status: Spouse name: Not on file Number of children: Not on file Years of education: Not on file Highest education level: Not on file Occupational History Not on file Tobacco Use Smoking status: Never Smokeless tobacco: Never Vaping Use Vaping Use: Never used Substance and Sexual Activity Alcohol use: No Drug use: No Sexual activity: Yes Partners: Male Other Topics Concern Not on file Social History Narrative for 53yrs Social Determinants of Health Financial Resource Strain: Not on file Food Insecurity: No Food Insecurity (10/28/2022) Hunger Vital Sign Worried About Running Out of Food in the Last Year: Never true Ran Out of Food in the Last Year: Never true Transportation Needs: Not on file Physical Activity: Not on file Stress: Not on file Social Connections: Not on file Intimate Partner Violence: Not on file Housing Stability: Not on file Current Outpatient Medications Medication Sig Dispense Refill ONETOUCH DELICA LANCETS 33G MISC e11.9 100 Each 5 aspirin enteric coated 81 MG TBEC Take 1 Tab by mouth daily. 100 Tab 3 Cholecalciferol (VITAMIN D3) 2000 units Capsule Take 1 Capsule by mouth in the morning. 30 Cap 5 Atorvastatin Calcium 80 MG Oral Tablet (Lipitor) Take 1 Tablet by mouth in the morning. 90 Tablet 3 Allopurinol 300 MG Oral Tablet (Zyloprim) TAKE 1 TABLET (300 MG) BY MOUTH IN THE MORNING 90 Tablet 1 OneTouch Verio In Vitro Strip (Glucose Blood) TEST BLOOD SUGAR UP TO FOUR TIMES A DAY. DX: E11.9 100 Strip 11 Apixaban 5 MG Oral Tablet (Eliquis) Take 1 Tablet by mouth in the morning and 1 Tablet before bedtime. Metoprolol Succinate ER 50 MG Oral Tablet Extended Release 24 Hour (toPROL XL) Take 1 Tablet by mouth in the morning and 1 Tablet before bedtime. Lisinopril 5 MG Oral Tablet (Prinivil) Take 1 Tablet by mouth in the morning. No current facility-administered medications for this visit. Immunization History Administered Date(s) Administered COVID-19 mRNA, LNP-s, No Preserve, 2-Dose Series (Moderna) 06/22/2020, 08/02/2020 COVID-19, mRNA, LNP-s, PF, Booster, 100mcg/0.5mg (Moderna) 04/13/2021, 09/29/2021 Covid-19, Mrna, Lnp-s, Pf, Bivalent, 30 Mcg, IM, 12 yrs and above (Pfizer) 04/27/2022 Pneumococcal Conjugate Vacc, 13 Valent (Prevnar) 11/15/2018 Pneumococcal Polysaccharide PPV23 (Pneumovax) 11/21/2019 SEASONAL INFLUENZA, PF, 6 M & Above, IM , (FLULAVAL or FLUZONE) 03/13/2018 Season Influenza, Quad, PF, Adjuvanted, 65+ Yrs, IM (FLUAD) 02/02/2020, 2021 Seasonal Influenza, Quadrivalent Hd, 65+ Yrs 02/02/2020, 02/26/2022 Seasonal Influenza, Quadrivalent, No Preserve, IM 03/05/2015 Seasonal Influenza, Split, IIV3, No Preserve, Inj 03/07/2010 Seasonal Influenza, Split, IIV3, With Preserve, Inj 02/21/2016 Seasonal Influenza, Trivalent, Adjuvanted, 65+ yrs 01/23/2019 Seasonal Influenza, Trivalent, High Dose, No Preserve, IM 2017 Varicella Zoster Vaccine (Adult) 09/15/2016 Zoster Vaccine Recombinant (Shingrix) 06/22/2019, 12/03/2019 Results for orders placed or performed in [...] g/dL Phosphorus 3.3 2.5 - 4.8 mg/dL Results for orders placed or performed in visit on 10/19/22 LIPID PANEL WITH DIRECT LDL IF TG IS HIGH Result Value Ref Range Triglycerides 112 <=174 mg/dL Cholesterol 156 <200 mg/dL HDL Cholesterol 52 >49 mg/dL Non-HDL Cholesterol 104 <=159 mg/dL LDL Cholesterol 82 <=129 mg/dL Lab Results Component Value Date/Time HEMOGLOBIN A1C - [facility] 6.4 (H) 10/19/2022 07:48 AM HEMOGLOBIN A1C - [facility] 6.3 (H) 04/22/2022 07:38 AM HEMOGLOBIN A1C - [facility] 6.6 (H) 10/20/2021 07:52 AM HEMOGLOBIN A1C - [facility] 6.2 (H) 04/28/2020 02:17 PM HEMOGLOBIN A1C - [facility] 6.2 (H) 10/23/2019 08:14 AM HEMOGLOBIN A1C - [facility] 6.9 (H) 03/13/2019 07:54 AM O: Blood pressure 118/72, pulse 67, temperature 36.3 C (97.3 F), temperature source Tympanic, resp. rate 16, weight 79.8 kg (176 lb), not currently . General appearance: well developed, well nourished and in no acute distress. Neck is supple without adenopathy or thyromegaly. Chestis symmetrical and moves normally. The lungs are clear without wheezes, rales, rhonchi or rubs, andthe heart is regular without murmurs or gallops, or ectopy. PMI not displaced. No edema. She is bruised from blood draws. A: Paroxysmal atrial fibrillation (HCC) (Primary) - Apixaban 5 MG Oral Tablet (Eliquis); Take 1 Tablet by mouth in the morning and 1 Tablet before bedtime. Benign hypertension with CKD (chronic kidney disease) stage III (HCC) - Lisinopril 10 MG Oral Tablet (Prinivil); One daily Chronic kidney disease, stage 3a (HCC) - Lisinopril 10 MG Oral Tablet (Prinivil); One daily Hyperlipidemia LDL goal <100 Benign hypertension with stage 3a chronic kidney disease (HCC) Type 2 diabetes mellitus with hemoglobin A1c goal of less than 7.0% (HCC) - Lisinopril 10 MG Oral Tablet (Prinivil); One daily Primary hypertension - Lisinopril 10 MG Oral Tablet (Prinivil); One daily SVT (supraventricular tachycardia) - Metoprolol Succinate ER 50 MG Oral Tablet Extended Release 24 Hour (toPROL XL); Take 1 Tablet by mouth in the morning and 1 Tablet before bedtime. Continue other meds as before. Keep 05/02 Follow Up: Return if symptoms worsen or fail to improve. documented in this encounter Nursing Notes * Lauren Seth LPN - 03/24/2023 10:36 AM EDT [facility] follow up documented in this encounter Plan of Treatment Upcoming Encounters Date Type Department Care Team (Late st Contact Info) Description 03/28/2023 11:00 AM EST Nurse Only Ancillary [address] [place] [address] [place], Nurse [address] [place] [address] 04/21/2023 10:30 AM EST Office Visit Orthopaedics [facility] [address] [facility] [place] [address] Jose Rodríguez PA-C [address] [place] [address] [place] [phone] 04/28/2023 10:30 AM EST Office Visit [address] [place] [address] Jose Rodríguez PA-C [address] [place] [address] [place] [phone] 05/02/2023 10:20 AM EST Office Visit Family Medicine [address] [place] [phone] Jose Michael MD [address] [place] [address] [place] [address] 05/05/2023 10:30 AM EST Office Visit Orthopaedics [address] [place] [address] Jose Rodríguez PA-C [address] [place] [address] [place] [phone] 05/12/2023 1:30 PM EST Office Visit Cardiology [address] [place] [address] Markell Mittal PA-C [address] [place] [address] 09/19/2023 10:20 AM EDT Office Visit Dermatology [address] [place] [address] Kristy Garcia PA-C [address] [place] [address] [place] [address] 02/01/2024 11:00 AM EDT Nurse Only Ancillary [address] [place] [address] [place], Nurse Annual Wellness [address] [place] [address] [place] [address] Health Maintenance Due Date Last Done Comments [...] Additional history exists CKD HGB USE SMARTSET 01017 04/22/202304/22, 10/20/2021, 10/24/2020, Additional history exists Diabetic Foot Exam 04/29/2023 04/29/2022, 0 11/21/2019, 11/21/2019, Additional history exists Albumin/Creatinine Ratio 10/20/202310/19/ 023, 09/13/2022, 10/20/2021, Additional history exists CKD PHOS USE SMARTSET 58419 10/20/202309/22, 10/20/2021, 10/24/2020, Additional history exists Depression Screening 10/29/2023 10/28/2022 Lipid Panel 10/20/2027 10/19/2022, 1205/2021, 04/21/2021, Additional [...] as of this encounter Visit Diagnoses Diagnosis Paroxysmal atrial fibrillation (HCC)- Primary Atrial fibrillation Benign hypertension with CKD (chronic kidney disease) stage III (HCC) 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 IV, or unspecified Chronic kidney disease, stage 3a (HCC) Hyperlipidemia LDL goal <100 Other and unspecified hyperlipidemia Benign hypertension with stage 3a chronic kidney disease (HCC) Type 2 diabetes mellitus with hemoglobin A1c goal of less than 7.0% (HCC) Primary hypertension Unspecified essential hypertension SVT (supraventricular tachycardia) Other specified cardiac dysrhythmias documented in this encounter Care Teams National Sales Executive Relationship Specialty Start Date End Date Jose Michael MD [address] [place] [address] [place] [address] PCP - General 03/24/1998 documented as of this encounter
--- OUTSIDE RECORDS SUMMARY | 2023-04-23 10:10 | External Medical Summary | Summary of Care ---
Author Name Unknown Organization [facility] Address [address] [place] [address] Phone [phone] Care Team Providers Care Machine Tool Designer Name Role Phone Jose Michael MD Primary Care Provider [phone] Encounter Details Date Type Department Care Team (Late st Contact Info) Description 03/28/2023 Orders Only Family Medicine [address] [phone] Jose iMchael MD [address] [place] [address] [place] [address] Allergies Active Allergy Reactions Criticality Noted Date Comments Baclofen Tachycardia 05/05/2021 AFib documented as of this encounter (statuses as of 03/28/2023) Medications Medication Sig Dispensed Refills Start Date End Date Status GORGE EVANS 33G MISCIndications:DM type 2, goal HbA1c < 7% ([facility]) e11.9 100 Each 5 11/03/2017 Active aspirin enteric coated 81 MG TBECIndications:DM type 2, goal HbA1c < 7% ([facility]),Benign hypertension with CKD (chronic kidney disease) stage III ([facility]),Type 2 DM with CKD stage 3 and hypertension ([facility]) Take 1 Tab by mouth daily. 100 [...] Blood)Indications:DM type 2, goal HbA1c < 7% ([facility]) TEST BLOOD SUGAR UP TO FOUR TIMES A DAY. DX: E11.9 100 Strip 11 03/19/2023 Active Lisinopril 10 MG Oral Tablet (Prinivil)Indications :Benign hypertension with CKD (chronic kidney disease) stage III ([facility]),Chronic kidney disease, stage 3a (HCC),Type 2 diabetes mellitus with hemoglobin A1c goal of less than 7.0% ([facility]),Primary hypertension One daily 90 Tablet [...] 03/28/2023 11:00 AM EST Nurse Only Ancillary [address] [place] [address] [place], Nurse [address] [place] [address] 04/21/2023 10:30 AM EST [address] [place] [address] Jose Rodríguez PA-C [address] [place] [address] [place] [phone] 04/28/2023 10:30 AM EST Office Visit [address] [place] [address] Jose Rodríguez PA-C [address] [place] [address] [place] [phone] 05/02/2023 10:20 AM EST Office Visit Family Medicine [address] [place] [phone] Jose Michael MD [address] [place] [address] [place] [address] 05/05/2023 10:30 AM EST Office Visit [address] [place] [address] Jose Rodríguez PA-C [address] [place] [address] [place] [phone] 05/12/2023 1:30 PM EST Office Visit Cardiology [address] [place] [address] Markell Mittal PA-C [address] [place] [address] 09/19/2023 10:20 AM EDT Office Visit Dermatology [address] [place] [address] Kristy Garcia PA-C [address] [place] [address] [place] [address] 02/01/2024 11:00 AM EDT Nurse Only Ancillary [address] [place] [address] [place], Nurse Annual Wellness [address] [place] [address] [place] [address] Pending Results Name Type Priority Associated Diagnoses Date /Time DIABETIC EYE EXAM Other Routine 023 Health Maintenance Due Date Last Done Comments DTaP,Tdap,and Td Vaccines (1 - Tdap) 1968 Mammogram 1989 Cologuard 1994 Colonoscopy 1994 Colorectal Cancer Screening 1994 Fecal Occult Blood Test 1994 Sigmoidoscopy 1994 Hepatitis B (1 of 3 - Risk 3-dose series) 2009 DXA Scan 10/03/2021 10/03/2018 GFR 04/21/2023 10/19/2022, 12/05/2021, 10/20/2021, Additional history exists HbA1c 04/21/2023 10/19/2022, 12/0 05/2021, 10/20/2021, Additional history exists CKD HGB USE SMARTSET 30167 04/22/202304/22, 10/20/2021, 10/24/2020, Additional history exists Diabetic Foot Exam 04/29/2023 04/29/2022, 0 11/21/2019, 11/21/2019, Additional history exists Albumin/Creatinine Ratio 10/20/2023 023, 09/13/2022, 10/20/2021, Additional history exists CKD PHOS USE SMARTSET 94396 10/20/202309/22, 10/20/2021, 10/24/2020, Additional history exists Depression Screening 10/29/2023 10/28/2022 Diabetic Eye Exam 03/28/2024 02/04/2022, , 01/24/2020, Additional history exists Lipid Panel 10/20/2027 10/19/2022, [...] filedocumented as of this encounter Care Teams Machine Tool Designer Relationship Specialty Start Date End Date Jose Michael MD [address] [place] [address] [place] [phone] PCP - General 03/24/1998 documented as of this encounter
--- OUTSIDE RECORDS SUMMARY | 2023-04-23 10:10 | External Medical Summary | Summary of Care ---
Author Name Unknown Organization [facility] Address [address] [place] [address] Phone [phone] Care Team Providers Care Manager Service Desk Name Role Phone Jose Michael MD Primary Care Provider [phone] Reason for Visit * Reason Onset Date Comments Appointment 03/21/2023 Encounter Details Date Type Department Care Team (Late st Contact Info) Description 03/21/2023 Telephone Cardiology, [facility] [address] [place] [address] Olga Gould CRNP [address] [place] [address] Appointment Allergies Active Allergy Reactions Criticality Noted Date Comments Baclofen Tachycardia 05/05/2021 AFib documented as of this encounter (statuses as of 03/21/2023) Medications Medication Sig Dispensed Refills Start Date End Date Status GORGE EVANS 33G MISCIndications:DM type 2, goal HbA1c < 7% ([facility]) e11.9 100 Each 5 11/03/2017 Active aspirin enteric coated 81 MG TBECIndications:DM type 2, goal HbA1c < 7% ([facility]),Benign hypertension with CKD (chronic kidney disease) [...] 06/09/2022 Active Allopurinol 300 MG Oral Tablet (Zyloprim)Bryanttio ns: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 DX: E11.9 100 Strip 11 03/19/2023 Active Apixaban 5 MG Oral Tablet (Eliquis) Take 1 Tablet by mouth in the morning and 1 Tablet before bedtime. 0 03/21/2023 Active Metoprolol Succinate ER 50 MG Oral Tablet Extended Release 24 Hour (toPROL XL)Indications:SVT (supraventricular tachycardia) Take 1 Tablet by mouth in the morning and 1 Tablet before bedtime. 0 03/21/2023 Active Lisinopril 5 MG Oral Tablet (Prinivil)Bryanttio ns:Benign hypertension with CKD (chronic kidney disease) stage III (HCC),Primary hypertension,Type 2 diabetes mellitus with hemoglobin A1c goal of less than 7.0% (HCC),Chronic kidney disease, stage 3a (HCC) Take 1 Tablet by mouth in the morning. 0 03/21/2023 Active Metoprolol Succinate ER 50 MG Oral Tablet Extended Release 24 Hour (toPROL XL)Indications:SVT (supraventricular tachycardia) Take 0.5 Tablets by mouth in the morning and 0.5 Tablets before bedtime. 90 Tablet 3 06/10/2022 03/21/2023 Discontinued (Refill) Lisinopril 10 MG Oral Tablet (Prinivil)Bryanttio ns:Benign hypertension with CKD (chronic kidney disease) stage III (HCC),Primary hypertension,Type 2 diabetes mellitus with hemoglobin A1c goal of less than 7.0% (HCC),Chronic kidney disease, stage 3a (HCC) Take 1 Tablet by mouth in the morning. 90 Tablet 1 10/28/2022 03/21/2023 Discontinued (Refill) documented as of this encounter (statuses as of 03/21/2023) Active Problems Problem Noted Date Diagnosed Date [...] as of this encounter (statuses as of 03/21/2023) Resolved Problems Problem Noted Date Diagnosed Date [...] as of this encounter (statuses as of 03/21/2023) Immunizations Name Administration Dates Next Due COVID-19 mRNA, LNP-s, No Pre serve, 2-Dose Series (Moderna) 08/02/2020,06/22/2020 COVID-19, mRNA, LNP-s, PF, B ooster, 100mcg/0.5mg (Moderna) 09/29/2021,04/13/2021 Covid-19, Mrna, Lnp-s, Pf, B ivalent, 30 Mcg, IM, 12 yrs and above (Pfizer) 04/27/2022 Pneumococcal Conjugate Vacc, 13 Valent (Prevnar) 11/15/2018 Pneumococcal Polysaccharide PPV23 (Pneumovax) SEASONAL INFLUENZA, PF, 6 M & Above, IM , (FLULAVAL or FLUZONE) 03/13/2018 Season Influenza, Quad, PF, Adjuvanted, 65+ Yrs, IM (FLUAD) 2021,02/02/2020 Seasonal Influenza, Quadrivalent Hd, 65+ Yrs 11/2021,02/02/2020 Seasonal Influenza, Quadrivalent, No Preserve, I M [...] encounter Miscellaneous Notes * Telephone Encounter - Payal Barone OSA - 03/21/2023 11:14 AM EDT Zio scheduled for 03/28 at 11:00 at [facility]. * Telephone Encounter - Olga Gould CRNP - 03/21/2023 10:11 AM EDT Patient admitted to [facility] on 03/20/2023. Anticipate Discharge within the next 24 to 48 hours. Scheduling: keep appt with Markell on 05/12/2023 She will need a 7 day zio prior to follow up. Thanks, LOYD Monahan Cardiology consult 03/21/2023: IMPRESSION: 73 year old female who presented to [facility] ED due to sustained palpitations. Found to be in Atrial flutter with RVR (rates in the 160s)-- symptoms resolved with IV Lopressor. Metoprolol succinate increased to 50 mg BID (from 25 mg BID) HS trops mildly elevated. PLAN: -Agree with increase in beta shan dosage-- continue metoprolol succinate 50 mg twice daily. -Encouraged patient to ambulate in the hallway this morning. -[id number] 4 points (age 65-74, female, Hypertension, diabetes)-- Risk of stroke in relation to aflutter discussed in detail as well as bleeding risk with anticoagulation, patient agreeable to start Eliquis 5 mg BID. -Plan on outpatient ZIO monitor to assess PAF/Flutter burden and average heart rates. 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 -HS tropinin mildly elevated, likely due to demand/tachycardic rates. Low likelihood for ACS, Consider outpatient nuclear stress test to rule out ischemic cause. Continue aspirin and statin. -Blood pressures well controlled, having episodic lightheadedness- reduce lisinopril to 5 mg daily Echo 03/21/2023: LVEF 60-65% Grade II diastolic dysfunction Mild MR and TR PASP 45 mmHg documented in this encounter Plan of Treatment Upcoming Encounters Date Type Department Care Team (Late st Contact Info) Description 03/24/2023 10:40 AM EDT Office Visit Family Medicine [address] [place] [phone] Jose Michael MD [address] [place] [address] [place] [address] 03/28/2023 11:00 AM EST Nurse Only Ancillary [address] [place] [address] [place], Nurse [address] [place] [address] 04/21/2023 10:30 AM EST Office Visit [facility] [address] [facility] [place] [address] Jose Rodríguez PA-C [facility] [address] [place] [address] 04/28/2023 10:30 AM EST Office Visit [facility] [address] [facility] [place] [address] Jose Rodríguez PA-C [address] [address] [place] [address] 05/02/2023 10:20 AM EST Office Visit Family Medicine [address] [place] [phone] Jose Michael MD [address] [place] [address] [place] [address] 05/05/2023 10:30 AM EST Office Visit Orthopaedics [facility] [place] [address] Jose Rodríguez PA-C [address] [place] [address] [place] [address] 05/12/2023 1:30 PM EST Office Visit Cardiology [address] [place] [address] Markell Mittal PA-C [address] [place] [address] 09/19/2023 10:20 AM EDT Office Visit Dermatology [address] [place] [address] Kristy Garcia PA-C [address] [place] [address] [place] [address] 02/01/2024 11:00 AM EDT Nurse Only Ancillary [address] [place] [address] [place], Nurse [facility]ness [address] [place] [address] [place] [address] Scheduled Orders Name Type Priority Associated Diagnoses Orde r Schedule EXTERNAL EKG 2 TO 7 DAYS Holter Routine PAF (paroxysmal atrial fibrillation) (HCC) Atrial flutter, unspecified type (HCC) Expected: 03/22/2023 (Approximate), Expires: 03/21/2024 Health Maintenance Due Date Last Done Comments [...] Additional history exists CKD HGB USE SMARTSET 91893 04/22/202304/22, 10/20/2021, 10/24/2020, Additional history exists Diabetic Foot Exam 04/29/2023 04/29/2022, 0 11/21/2019, 11/21/2019, Additional history exists Albumin/Creatinine Ratio 10/20/2023 023, 09/13/2022, 10/20/2021, Additional history exists CKD PHOS USE SMARTSET 56732 10/20/202309/22, 10/20/2021, 10/24/2020, Additional history exists Depression Screening 10/29/2023 10/28/2022 Lipid Panel 10/20/2027 10/19/2022, 12/0 05/2021, 04/21/2021, [...] Atrial fibrillation Atrial flutter, unspecified type (HCC) SVT (supraventricular tachycardia) Other specified cardiac dysrhythmias Benign hypertension with CKD (chronic kidney disease) stage III (HCC) 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
--- OUTSIDE RECORDS SUMMARY | 2023-04-23 10:10 | External Medical Summary | Summary of Care ---
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 Allergies Active Allergy Reactions Severity Noted Date Comments Baclofen Tachycardia 05/05/2021 AFib documented as of this encounter (statuses as of 12/03/2022) Medications Medication Sig Dispensed Refills Start Date End Date Status GORGE EVANS 33G MISCIndications:DM type 2, goal HbA1c < 7% ([facility]) e11.9 100 Each 5 11/03/2017 Active aspirin enteric coated 81 MG TBECIndications:DM type 2, goal HbA1c < 7% ([facility]),Benign hypertension with CKD (chronic kidney disease) stage III ([facility]),Type 2 DM with CKD stage 3 and hypertension ([facility]) Take 1 Tab by mouth daily. 100 Tab 3 02/27/2018 Active Cholecalciferol (VITAMIN D3) 2000 units CapsuleIndications :Vitamin D deficiency Take 1 Capsule by mouth in the morning. 30 Cap 5 04/12/2018 Active OneTouch Verio In Vitro Strip (Glucose Blood)Indications: DM type 2, goal HbA1c < 7% ([facility]) TEST BLOOD SUGAR UP TO FOUR TIMES A DAY. DX: E11.9 100 Strip 11 05/10/2022 Active Metoprolol Succinate ER 50 MG Oral Tablet Extended Release 24 Hour (toPROL XL)Indications:SVT (supraventricular tachycardia) ([facility]) Take 0.5 Tablets by mouth in the morning and 0.5 Tablets before bedtime. 90 Tablet 3 06/10/2022 Active Atorvastatin Calcium 80 MG Oral Tablet (Lipitor) Take 1 Tablet by mouth in the morning. 90 Tablet 3 06/09/2022 Active Lisinopril 10 MG Oral Tablet (Prinivil)Indicati ons:Benign hypertension with CKD (chronic kidney disease) stage III ([facility]),Primary hypertension,Type 2 diabetes mellitus with hemoglobin A1c goal of less than 7.0% ([facility]),Chronic kidney disease, stage 3a ([facility]) Take 1 Tablet by mouth in the morning. 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 90 Tablet 1 04/29/2022 12/03/2022 Discontinued documented as of this encounter (statuses as of 12/03/2022) Active Problems Problem Noted Date Benign hypertension [...] Idiopathic chronic gout of left foot wit erasmo ryan 10/20/2017 Overview: uric acid 11.2 ADVANCE DIRECTIVE INFORMATION 06/28/2005 Overview: No, Advance Directive brochure offered , patient declined. Primary hypertension Hyperlipidemia LDL goal <100 documented as of this encounter (statuses as of 12/03/2022) Resolved Problems Problem Noted Date Resolved Date [...] as of this encounter (statuses as of 12/03/2022) Immunizations Name Administration Dates Next Due COVID-19 [...] encounter Miscellaneous Notes * Telephone Encounter - Griselda Amaral, [facility] - 12/03/2022 8:30 AM EDTSigned Prescriptions: Disp Refills Allopurinol 300 MG Oral Tablet (Zyloprim) 90 Tab*1 Sig: TAKE 1 TABLET (300 MG) BY MOUTH IN THE MORNINGAuthorizing Provider: JOSE POND User: GRISELDA AMARAL documented in this encounter Plan of Treatment Upcoming Encounters Date Type Specialty Care Team Description 01/04/2023 Office Visit Cardiology Bon Cespedes, DO [address] [place] [address] 04/21/2023 Office Visit Orthopedics Jose Rodríguez PA-C [address] [place] [address] 04/28/2023 Office Visit Orthopedics Jose Rodríguez PA-C [address] [place] [address] 05/02/2023 Office Visit Family Medicine Jose Pond MD [address] [place] [address] [place] [address] 05/05/2023 Office Visit Orthopedics Jose Rodríguez PA-C [address] [place] [address] 09/19/2023 Office Visit Dermatology Kristy Garcia PA-C [address] [place] [address] [place] [address] 02/01/2024 Nurse Only Ancillary José Antonio Nurse Annual Wellness [address] [place] [address] [place] [address] Health Maintenance Due Date Last Done Comments DTaP,Tdap,and Td Vaccines (1 - Tdap) 1968 Mammogram 1989 Cologuard 1994 Colonoscopy 1994 Colorectal Cancer Screening 1994 Fecal Occult Blood Test 1994 Sigmoidoscopy 1994 DXA Scan 10/03/2021 10/03/2018 Influenza Vaccine (FLU shot) (#1) 2023 02/26/2022, 2021, 02/02/2020, Additional history exists DIABETES-EYE EXAM 02/04/2023 02/04/2022, , 01/24/2020, Additional history exists GFR 04/21/2023 10/19/2022, 12/0 05/2021, 10/20/2021, Additional history exists HbA1c 04/21/2023 10/19/2022, 12/0 05/2021, 10/20/2021, Additional history exists CKD HGB USE SMARTSET 21590 04/22/202304/22, 10/20/2021, 10/24/2020, Additional history exists DIABETES-FOOT EXAM 04/29/2023 04/29/2022, 0 11/21/2019, 11/21/2019, Additional history exists Albumin/Creatinine Ratio 10/20/2023 023, 09/13/2022, 10/20/2021, Additional history exists CKD PHOS USE SMARTSET 37597 10/20/202309/22, 10/20/2021, 10/24/2020, Additional history exists Depression Screening, Annual for Pts 12 and Over 10/29/2023 10/28/2022 Lipid Panel 10/20/2027 10/19/2022, 12/0 05/2021, 04/21/2021, Additional history exists Pneumococcal Vaccine: 65+ Years Completed 11/21/2019, 11/15/2018 Zoster Vaccines Completed 12/03/2019, 05/25, 09/15/2016 COVID-19 Vaccine Completed 04/27/2022, 02/2022, 04/13/2021, Additional [...] tophus documented in this encounter Care Teams Dancing Master Relationship Specialty Start Date End Date Jose Pond MD [address] [place] [address] [place] [address] PCP - General 03/24/1998 documented as of this encounter
--- OUTSIDE RECORDS SUMMARY | 2023-04-23 10:10 | External Medical Summary | Summary of Care ---
Author Name Unknown Organization [facility] Address [address] [place] [address] Phone [phone] Care Team Providers Care Tool Grinder Operator External Name Role Phone Jose Michael MD Primary Care Provider + [phone] Reason for Visit * Reason Comments Re-Check Encounter Details Date Type Department Care Team Description 10/28/2022 Office Visit Family Medicine [address] [address] Jose Michael MD [address] [place], [place] [address] [id number] Type 2 diabetes mellitus with hemoglobin A1c goal of less than 7.0% ([facility])*; Benign hypertension with CKD (chronic kidney disease) stage III ([facility]); Primary hypertension; Benign hypertension with stage 3a chronic kidney disease ([facility]); Chronic kidney disease, stage 3a ([facility]) Allergies Active Allergy Reactions Severity Noted Date Comments Baclofen Tachycardia 05/05/2021 AFib documented as of this encounter (statuses as of 10/28/2022) Medications Medication Sig Dispensed Refills Start Date End Date Status GORGE HERNANDEZ LANCETS 33G MISCIndications:DM type 2, goal HbA1c < 7% ([facility]) e11.9 100 Each 5 11/03/2017 Active aspirin enteric coated 81 MG TBECIndications:DM type 2, goal HbA1c < 7% ([facility]),Benign hypertension with CKD (chronic kidney disease) stage III ([facility]),Type 2 DM with CKD stage 3 and hypertension ([facility]) Take 1 Tab by mouth [...] M type 2, goal HbA1c < 7% ([facility]) TEST BLOOD SUGAR UP TO FOUR TIMES A DAY. DX: E11.9 100 Strip 11 05/10/2022 Active Metoprolol Succinate ER 50 MG Oral Tablet Extended Release 24 Hour (toPROL XL)Indications:SVT (supraventricular tachycardia) ([facility]) Take 0.5 Tablets by mouth in the morning and 0.5 Tablets before bedtime. 90 Tablet 3 06/10/2022 Active Atorvastatin Calcium 80 MG Oral Tablet (Lipitor) Take 1 Tablet by mouth in the morning. 90 Tablet 3 06/09/2022 Active Lisinopril 10 MG Oral Tablet (Prinivil)Indicatio ns:Benign hypertension with CKD (chronic kidney disease) stage III ([facility]),Primary hypertension,Type 2 diabetes mellitus with hemoglobin A1c goal of less than 7.0% ([facility]),Chronic kidney disease, stage 3a (HCC) Take 1 Tablet by mouth in the morning. 90 Tablet 1 10/28/2022 Active Mupirocin 2 % External Ointment (Bactroban)Indicati ons:Seborrheic keratosis Apply under bandage to open wounds daily after washing with soap and water until healed (at least 3 weeks) 22 g 1 09/09/2021 10/28/2022 Discontinued (Medication List Clean Up) Lisinopril 10 MG Oral Tablet (Prinivil)Indicatio ns:Benign hypertension with CKD (chronic kidney disease) stage III (HCC),Primary hypertension,Type 2 diabetes mellitus with hemoglobin A1c goal of less than 7.0% ([facility]) Take 1 Tablet (10 mg) by mouth in the morning. 90 Tablet 1 04/29/2022 10/28/2022 Discontinued (Refill) documented as of this encounter [...] (Pneumovax) Seasonal Influenza, Quadrivalent Hd, 65+ Yrs 04/2020 Seasonal Influenza, Quadriva lent, No Preserve, 6 [...] Sign Reading Time Taken Comments Blood Pressure 122/70 10/28/2022 9:55 AM EDT Pulse 73 10/28/2022 9:55 AM EDT Temperature 35.8 C (96.5 F) 10/28/2022 9:55 AM ED T Respiratory Rate 16 10/28/2022 9:55 AM EDT Oxygen Saturation - - Inhaled Oxygen Concentration - - Weight 80.8 kg (178 lb 2 oz) 10/28/2022 9:55 AM EDT Height - - Body Mass Index 31.55 04/29/2022 9:49 AM EST documented in this encounter Progress Notes * Jose Michael MD - 10/28/2022 10:02 AM EDT Sindi still gets anxious and has a tendency to palpitate when this happens. She is concerned about adding Zetia for her cholesterol. She had labs and they are good. She had some hematuria and dr vera ordered a renal ultrasound. It was normal. I gave her the results. No complaints of headache,trouble with vision or hearing. Eating well, with no bowel or bladder complaints. Denies chest painor palpitations. Denies shortness of breath, PND, or orthopnea. No skin rashes or breakdown. No changes in mentation. No syncope or falls. All others negative other than those noted in HPI. Past Medical History: Diagnosis Date Benign hypertension [...] normal LV size and function, EF 55% VAGINAL DELIVERY ONLY 07/27/1971 Vaginal Delivery . Review of patient's allergies indicates: Allergen Reactions Baclofen Tachycardia AFib Social History Socioeconomic History Marital status: Spouse name: Not on file Number of children: Not on file Years of education: Not on file Highest education level: Not on file Occupational History Not on file Tobacco Use Smoking status: Never Smokeless tobacco: Never Substance and Sexual Activity Alcohol use: No Drug use: No Sexual activity: Yes Partners: Male Other Topics Concern Not on file Social History Narrative Not on file Social Determinants of Health Financial Resource Strain: Not on file Food Insecurity: Not on file Transportation Needs: Not on file Physical Activity: [...] mouth in the morning. 90 Tablet 1 Lisinopril 10 MG Oral Tablet (Prinivil) Take 1 Tablet (10 mg) by mouth in the morning. 90 [...] mouth in the morning. 90 Tablet 3 Mupirocin 2 % External Ointment (Bactroban) Apply under bandage to open wounds daily after washing with soap and water until healed (at least 3 weeks) (Patient not taking: Reported on 09/13/2022) 22 g 1 No current facility-administered medications for this [...] 11/21/2019 Seasonal Influenza, Quadrivalent Hd, 65+ Yrs 02/02/2020 Seasonal Influenza, Quadrivalent, No Preserve, 6 Mons [...] 09/15/2016 Zoster Vaccine Recombinant (Shingrix) 06/22/2019, 12/03/2019 Lab Results Component Value Date/Time HEMOGLOBIN A1C - [facility] 6.4 (H) 10/19/2022 07:48 AM HEMOGLOBIN A1C - [facility] 6.3 (H) 04/22/2022 07:38 AM HEMOGLOBIN A1C - [facility] 6.6 (H) 10/20/2021 07:52 AM HEMOGLOBIN A1C - [facility] 6.2 (H) 04/28/2020 02:17 PM HEMOGLOBIN A1C - [facility] 6.2 (H) 10/23/2019 08:14 AM HEMOGLOBIN A1C - [facility] 6.9 (H) 03/13/2019 07:54 AM Results for orders placed or performed in visit on 10/19/22 LIPID PANEL WITH DIRECT LDL IF TG IS HIGH Result Value Ref Range Triglycerides 112 <=174 mg/dL Cholesterol 156 <200 mg/dL HDL Cholesterol 52 >49 mg/dL Non-HDL Cholesterol 104 <=159 mg/dL LDL Cholesterol 82 <=129 mg/dL Results for orders placed or performed in visit on 04/22/22 BASIC METABOLIC PANEL Result Value Ref Range BUN 29 (H) 6 - 20 mg/dL Creatinine 1.1 (H) 0.5 - 1.0 mg/dL Estimated Glomerular Filtration Rate 56 (L) >=60 mL/min Sodium 141 135 - 146 mmol/L Potassium 4.3 3.5 - 5.1 mmol/L Chloride 104 98 - 107 mmol/L CO2 27 22 - 32 mmol/L Anion Gap 10 7 - 15 mmol/L Glucose 126 (H) 70 - 120 mg/dL Calcium 9.5 8.4 - 10.2 mg/dL Results for orders placed or performed [...] g/dL Phosphorus 3.3 2.5 - 4.8 mg/dL O: Blood pressure 122/70, pulse 73, temperature 35.8 C (96.5 F), temperature source Tympanic, resp. rate 16, weight 80.8 kg (178 lb 2 oz), not currently . General appearance: well developed, well nourished and in no acute distress. Head normocephalic andatraumatic. No facial asymmetry. Eye exam; PEERLA, EOMI. No scleral icterus or nystagmus. Conjunctiva are pink and not injected. Oropharynx: no exudate, no pharyngeal inflammation or post nasal drip.The palate is free of lesions and the uvula is normal. Trachea is in the midline. Neck supple with no adenopathy or thyromegaly. No carotid bruits. Chest expands equally and is symmetrical with normal AP diameter. Lungs clear, with no wheezes, rales, or rhonchi. Heart: S1 and S2 normal. PMI not obviously displaced. Heart regular, no murmurs, gallops, clicks or rubs. No CVA tenderness. No calf swelling or tenderness. No pedal edema. No skin rashes. Extremities unremarkable. A: Type 2 diabetes mellitus with hemoglobin A1c goal of less than 7.0% ([facility]) (Primary) - Lisinopril 10 MG Oral Tablet (Prinivil); Take 1 Tablet by mouth in the morning. - HEMOGLOBIN A1C; Future; Expected date: 10/28/2022 - BASIC METABOLIC PANEL; Future; Expected date: 10/28/2022 Benign hypertension with CKD (chronic kidney disease) stage III (HCC) - Lisinopril 10 MG Oral Tablet (Prinivil); Take 1 Tablet by mouth in the morning. - BASIC METABOLIC PANEL; Future; Expected date: 10/28/2022 Primary hypertension - Lisinopril 10 MG Oral Tablet (Prinivil); Take 1 Tablet by mouth in the morning. - BASIC METABOLIC PANEL; Future; Expected date: 10/28/2022 Benign hypertension with stage 3a chronic kidney disease (HCC) - BASIC METABOLIC PANEL; Future; Expected date: 10/28/2022 Chronic kidney disease, stage 3a (HCC) - Lisinopril 10 MG Oral Tablet (Prinivil); Take 1 Tablet by mouth in the morning. - BASIC METABOLIC PANEL; Future; Expected date: 10/28/2022 Continue other meds as before. Labs before next visit. Follow Up: Return in 6 months (on 04/29/2023) for , schedule AWV, Clinic Visit. | For: , schedule AWV, Clinic Visit documented in this encounter Nursing Notes * Lauren Seth LPN - 10/28/2022 9:50 AM EDT 6 month recheck documented in this encounter Plan of Treatment Upcoming Encounters Date Type Specialty Care Team Description 01/04/2023 Office Visit Cardiology Bon Cespedes, DO [address] [place] [address] 04/21/2023 Office Visit Orthopedics Jose Rodríguez PA-C [address] [place] [address] 04/28/2023 Office Visit Orthopedics Jose Rodríguez PA-C [address] [place] [address] 05/02/2023 Office Visit Family Medicine Jose Michael MD [address] [place] [address] [place] [address] 05/05/2023 Office Visit Orthopedics Jose Rodríguez PA-C [address] [place] [address] 09/19/2023 Office Visit Dermatology Kristy Garcia PA-C [address] [place] [address] [place] [address] Scheduled Orders Name Type Priority Associated Diagnoses Orde r Schedule HEMOGLOBIN A1C Lab Routine Type 2 diabetes mellitus with hemoglobin A1c goal of less than 7.0% (HCC) Expected: 10/28/2022 (Approximate), Expires: 10/28/2023 BASIC METABOLIC PANEL Lab Routine Benign hypertension with CKD (chronic kidney disease) stage III (HCC) Primary hypertension Type 2 diabetes mellitus with hemoglobin A1c goal of less than 7.0% (HCC) Benign hypertension with stage 3a chronic kidney disease (HCC) Chronic kidney disease, stage 3a (HCC) Expected: 10/28/2022 (Approximate), Expires: 10/28/2023 Health Maintenance Due Date Last Done Comments DTaP,Tdap,and Td Vaccines (1 - Tdap) 1968 Mammogram 1989 Cologuard 1994 Colonoscopy 1994 Colorectal Cancer Screening 1994 Fecal Occult Blood Test 1994 Sigmoidoscopy 1994 DXA Scan 10/03/2021 10/03/2018 Depression Screening, Annual for Pts 12 and Over 08/24/2022 08/24/2021 Influenza Vaccine (FLU shot) (Season Ended) 2023 2021, 02/02/2020, 02/02/2020, Additional history exists DIABETES-EYE EXAM 02/04/2023 02/04/2022, , 01/24/2020, Additional history exists GFR 04/21/2023 10/19/2022, 1205/2021, 10/20/2021, Additional history exists HbA1c 04/21/2023 10/19/2022, 120 05/2021, 10/20/2021, Additional history exists CKD HGB USE SMARTSET 57412 04/22/202304/22, 10/20/2021, 10/24/2020, Additional history exists DIABETES-FOOT EXAM 04/29/2023 04/29/2022, 0 11/21/2019, 11/21/2019, Additional history exists Albumin/Creatinine Ratio 10/20/2023 023, 09/13/2022, 10/20/2021, Additional history exists CKD PHOS USE SMARTSET 31969 10/20/202309/22, 10/20/2021, 10/24/2020, Additional history exists Lipid [...] as of this encounter Visit Diagnoses Diagnosis Type 2 diabetes mellitus with hemoglobin A1c goal of less than 7.0% (HCC)- Primary Benign hypertension with CKD (chronic kidney disease) stage III (HCC) 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 IV, or unspecified Primary hypertension Unspecified essential hypertension Benign hypertension with stage 3a chronic kidney disease (HCC) Chronic kidney disease, stage 3a (HCC) documented in this encounter Care Teams Tool Grinder Operator External Relationship Specialty Start Date End Date Jose Michael MD [address] [place] [address] [place] [id number] PCP - General 03/24/1998 documented as of this encounter"
--- OUTSIDE RECORDS SUMMARY | 2023-04-23 10:10 | External Medical Summary | Summary of Care ---
Author Name Unknown Organization [facility] Address [address] [place] [address] Phone [phone] Care Team Providers Care Canadian Bacon Tier Name Role Phone Jose Pond MD Primary Care Provider Reason for Visit * Reason Comments eRx-Medication Refill Encounter Details Date Type Department Care Team (Late st Contact Info) Description 03/19/2023 Refill Family Medicine [address] [address] Jose Pond MD [address] [place], [place] [address] [address] DM type 2, goal HbA1c < 7% ([facility]) Allergies Active Allergy Reactions Criticality Noted Date Comments Baclofen Tachycardia 05/05/2021 AFib documented as of this encounter (statuses as of 03/19/2023) Medications Medication Sig Dispensed Refills Start Date End Date Status GORGE EVANS 33G MISCIndications:DM type 2, goal HbA1c < 7% ([facility]) e11.9 100 Each 5 11/03/2017 Active aspirin enteric coated 81 MG TBECIndications:DM type 2, goal HbA1c < 7% ([facility]),Benign hypertension with CKD (chronic kidney disease) stage III (HCC),Type 2 DM with CKD stage 3 and hypertension (HCC) Take 1 Tab by mouth daily. 100 Tab 3 02/27/2018 Active Cholecalciferol (VITAMIN D3) 2000 units CapsuleIndications :Vitamin D deficiency Take 1 Capsule by mouth in the morning. 30 Cap 5 04/12/2018 Active Metoprolol Succinate ER 50 MG Oral [...] DM type 2, goal HbA1c < 7% ([facility]) TEST BLOOD SUGAR UP TO FOUR TIMES A DAY. DX: E11.9 100 Strip 11 03/19/2023 Active OneTouch Verio In Vitro Strip (Glucose Blood)Indications: DM type 2, goal HbA1c < 7% ([facility]) TEST BLOOD SUGAR UP TO FOUR TIMES A DAY. DX: E11.9 100 Strip 11 05/10/2022 03/19/2023 Discontinued documented as of this encounter (statuses as of 03/19/2023) Active Problems Problem Noted Date Diagnosed Date [...] as of this encounter (statuses as of 03/19/2023) Resolved Problems Problem Noted Date Diagnosed Date [...] as of this encounter (statuses as of 03/19/2023) Immunizations Name Administration Dates Next Due COVID-19 [...] encounter Miscellaneous Notes * Telephone Encounter - Perla Reyes margot - 03/19/2023 7:14 PM EDTSigned Prescriptions: Disp Refills OneTouch Verio In Vitro Strip (Glucose Blo*[address] St*11 Sig: TEST BLOOD SUGAR UP TO FOUR TIMES A DAY. DX: E11.9Authorizing Provider: JOSE POND User: PERLA REYES documented in this encounter Plan of Treatment Upcoming Encounters Date Type Department Care Team (Late st Contact Info) Description 04/21/2023 10:30 AM EST Office Visit Orthopaedics [address] [place] [address] Jose Rodríguez PA-C [address] [place] [address] [place] [address] 04/28/2023 10:30 AM EST Office Visit Orthopaedics [facility] [address] [facility] [place] [address] Jose Rodríguez PA-C [address] [place] [place] [address] 05/02/2023 10:20 AM EST Office Visit Family [address] [phone] Jose Pond MD [address] [place] [address] [place] [address] 05/05/2023 10:30 AM EST Office Visit Orthopaedics [facility] [address] [place] [address] Jose Rodríguez PA-C [address] [place] [address] [place] [address] 05/12/2023 1:30 PM EST Office Visit Cardiology [address] [place] [address] Markell Mittal PA-C [address] [place] [address] 09/19/2023 10:20 AM EDT Office Visit Dermatology [address] [place] [address] Kristy Garcia PA-C [address] [place] [address] [place] [address] 02/01/2024 11:00 AM EDT Nurse Only Ancillary [address] [place] [address] [place], Nurse Annual Wellness [address] [place] [address] [place] [address] Health Maintenance Due Date Last Done Comments DTaP,Tdap,and Td Vaccines (1 - Tdap) 1968 Mammogram 1989 Cologuard 1994 Colonoscopy 1994 Colorectal Cancer Screening 1994 Fecal Occult Blood Test 1994 Sigmoidoscopy 1994 Hepatitis B (1 of 3 - Risk 3-dose series) 2009 DXA Scan 10/03/2021 10/03/2018 DIABETES-EYE EXAM 02/04/2023 02/04/2022, , 01/24/2020, Additional history exists GFR 04/21/2023 10/19/2022, 120 05/2021, 10/20/2021, Additional history exists HbA1c 04/21/2023 10/19/2022, 120 05/2021, 10/20/2021, Additional history exists CKD HGB USE SMARTSET 89581 04/22/202304/22, 10/20/2021, 10/24/2020, Additional history exists Diabetic Foot Exam 04/29/2023 04/29/2022, 0 11/21/2019, 11/21/2019, Additional history exists Albumin/Creatinine Ratio 10/20/2023 023, 09/13/2022, 10/20/2021, Additional history exists CKD PHOS USE SMARTSET 32628 10/20/202309/22, 10/20/2021, 10/24/2020, Additional history exists Depression Screening 10/29/2023 10/28/2022 Lipid Panel 10/20/2027 10/19/2022, 0 05/2021, 04/21/2021, Additional history exists Pneumococcal Vaccine: [...] as of this encounter Visit Diagnoses Diagnosis DM type 2, goal HbA1c < 7% (HCC) documented in this encounter Care Teams Canadian Bacon Tier Relationship Specialty Start Date End Date Jose Pond MD [address] [place] [address] [place] [address] PCP - General 03/24/1998 documented as of this encounter
--- OUTSIDE RECORDS SUMMARY | 2023-04-23 10:10 | External Medical Summary | Summary of Care ---
Author Name Unknown Organization [facility] Address [address] [place] [address] Phone [phone] Care Team Providers Care Glass Belt Sander Name Role Phone Jose Michael MD Primary Care Provider [phone] Reason for Visit * Reason Onset Date Comments Health Maintenance 01/10/2023 Encounter Details Date Type Department Care Team Description 01/10/2023 Telephone Family Medicine [address] [phone] Jose Michael MD [address] [place] [address] [place] [address] Health Maintenance Allergies Active Allergy Reactions Severity Noted Date Comments Baclofen Tachycardia 05/05/2021 AFib documented as of this encounter (statuses as of 01/10/2023) Medications Medication Sig Dispensed Refills Start Date End Date Status GORGE HERNANDEZ LANCETS 33G MISCIndications:DM type 2, goal HbA1c < 7% ([facility]) e11.9 100 Each 5 11/03/2017 Active aspirin enteric coated 81 MG TBECIndications:DM type 2, goal HbA1c < 7% ([facility]),Benign hypertension with CKD (chronic kidney disease) stage III ([facility]),Type 2 DM with CKD stage 3 and hypertension ([facility]) Take 1 Tab by mouth daily. 100 Tab 3 02/27/2018 Active Cholecalciferol (VITAMIN D3) 2000 units CapsuleIndications:Vit hayes D deficiency Take 1 Capsule by mouth in the morning. 30 Cap 5 04/12/2018 Active OneTouch Verio In Vitro Strip (Glucose Blood)Indications:DM type 2, goal HbA1c < 7% ([facility]) TEST BLOOD SUGAR UP TO FOUR TIMES A DAY. DX: E11.9 100 Strip 11 05/10/2022 Active Metoprolol Succinate ER 50 MG Oral Tablet Extended Release 24 Hour (toPROL XL)Indications:SVT (supraventricular tachycardia) ([facility]) Take 0.5 Tablets by mouth in the morning and 0.5 Tablets before bedtime. 90 Tablet 3 06/10/2022 Active Atorvastatin Calcium 80 MG Oral Tablet (Lipitor) Take 1 Tablet by mouth in the morning. 90 Tablet 3 06/09/2022 Active Lisinopril 10 MG Oral Tablet (Prinivil)Indications: Benign hypertension with CKD (chronic kidney disease) stage III ([facility]),Primary hypertension,Type 2 diabetes mellitus with hemoglobin A1c goal of less than 7.0% ([facility]),Chronic kidney disease, stage 3a (HCC) Take 1 Tablet by mouth in the morning. 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 TAKE 1 TABLET (300 MG) BY MOUTH IN THE MORNING 90 Tablet 1 12/03/2022 Active documented as of this encounter (statuses as of 01/10/2023) Active Problems Problem Noted Date Benign hypertension [...] as of this encounter (statuses as of 01/10/2023) Resolved Problems Problem Noted Date Resolved Date Type 2 diabetes mellitus wit h stage 3a chronic kidney disease, without long-term current use of insulin 04/20/2022/2 08/2022 Type 2 diabetes mellitus wit h stage [...] as of this encounter (statuses as of 01/10/2023) Immunizations Name Administration Dates Next Due COVID-19 mRNA, LNP-s, No Pre serve, 2-Dose Series (Moderna) 08/02/2020,06/22/2020 Covid-19 Mrna, Lnp-s, No Preserve, Booster (Mode rna) 09/29/2021,04/13/2021 Covid-19, Mrna, Lnp-s, Pf, B ivalent, 30 Mcg, IM, 12 yrs and above (Pfizer) 04/27/2022 Pneumococcal Conjugate Vacc, 13 Valent (Prevnar) 11/15/2018 Pneumococcal Polysaccharide PPV23 (Pneumovax) Season Influenza, Quad, PF, Adjuvanted, 65+ Yrs, IM (FLUAD) 2021,02/02/2020 Seasonal Influenza, PF, 6 mo ns & Above, IM , (Flulaval) 03/13/2018 Seasonal Influenza, Quadrivalent Hd, 65+ Yrs 11/2021,02/02/2020 [...] encounter Miscellaneous Notes * Telephone Encounter - Jacqui Cornejo LPN - 01/10/2023 10:28 AM EDT Care Gaps Comprehensive Care Outreach Last Office/Telemedicine Visit: 10/28/2022 (in office), Visit date not found (telemedicine) Next Office Visit: 05/02/2023 Hemoglobin AIC Results: Lab Results Component Value Date/Time HEMOGLOBIN A1C - [facility] 6.4 (H) 10/19/2022 07:48 AM HEMOGLOBIN A1C - [facility] 6.3 (H) 04/22/2022 07:38 AM HEMOGLOBIN A1C - [facility] 6.6 (H) 10/20/2021 07:52 AM HEMOGLOBIN A1C - [facility] 6.2 (H) 04/28/2020 02:17 PM HEMOGLOBIN A1C - [facility] 6.2 (H) 10/23/2019 08:14 AM HEMOGLOBIN A1C - [facility] 6.9 (H) 03/13/2019 07:54 AM Reviewed Health Maintenance below: Health Maintenance Topic Date Due DTaP,Tdap,and Td Vaccines (1 - Tdap) Never done Mammogram Never done Colorectal Cancer Screening Never done DXA Scan 10/03/2021 DIABETES-EYE EXAM 02/04/2023 Influenza Vaccine (FLU shot) (1) 01/21/2023 HbA1c 04/21/2023 GFR 04/21/2023 CKD HGB USE SMARTSET 34070 04/22/2023 DIABETES-FOOT EXAM 04/29/2023 Mamm Colon Dexa Eye she has this scheduled Labs add hgb She will walk in for labs. Declines other hm Care Gap Outreach Action Taken: Spoke to patient documented in this encounter Plan of Treatment Upcoming Encounters Date Type Specialty Care Team Description 04/21/2023 Office Visit Orthopedics Jose Rodríguez PA-C [address] [place] [address] [place] [phone] 04/28/2023 Office Visit Orthopedics Jose Rodríguez PA-C [address] [place] [address] [place] [address] 05/02/2023 Office Visit Family Medicine Jose Michael MD [address] [place] [address] [place] [address] 05/05/2023 Office Visit Orthopedics Jose Rodríguez PA-C [address] [place] [address] [place] [address] 05/12/2023 Office Visit Cardiology aMrkell Mittal PA-C [address] [place] [address] 09/19/2023 Office Visit Dermatology Kristy Garcia PA-C [address] [place] [address] [place] [address] 02/01/2024 Nurse Only Ancillary [place], Nurse Annual Wellness [address] [place] [address] [place] [address] Scheduled Orders Name Type Priority Associated Diagnoses Orde r Schedule CBC Lab Routine Chronic kidney disease, unspecified CKD stage Expected: 04/12/2023, Expires: 01/11/2024 Health Maintenance Due Date Last Done Comments [...] 10/20/2021, Additional history exists HbA1c 04/21/2023 10/19/2022, 1205/2021, 10/20/2021, Additional history exists CKD HGB USE SMARTSET 49425 04/22/202304/22, 10/20/2021, 10/24/2020, Additional history exists DIABETES-FOOT EXAM 04/29/2023 04/29/2022, 0 11/21/2019, 11/21/2019, Additional history exists Albumin/Creatinine Ratio 10/20/2023 023, 09/13/2022, 10/20/2021, Additional history exists CKD PHOS USE SMARTSET 12066 10/20/202309/22, 10/20/2021, 10/24/2020, Additional history exists Depression [...] as of this encounter Visit Diagnoses Diagnosis Chronic kidney disease, unspecified CKD stage- Primary documented in this encounter Care Teams Glass Belt Sander Relationship Specialty Start Date End Date Jose iMchael MD [address] [place] [address] [place] [address] PCP - General 03/24/1998 documented as of this encounter
[2023-04-23] MEDS ORDERED: SODIUM CHLORIDE 0.9% 1,000 ML IV ONE ×2 (10:22→13:55)
[2023-04-23] MEDS ORDERED: dilTIAZem HCl 5 MG/ML 5 ML VIAL IV STA ×2 (10:22→11:31)
--- NOTE | 2023-04-23 10:25 | Emergency Department Note ---
Impression & Plan Atrial fibrillation with rapid ventricular response ED Provider Note NAME: KENYA MAN AGE: 73 SEX: F : 1950 ARRIVES VIA: Walk-In INFORMANT: Patient ED PROVIDER(S): Jamie Cardozo DO CHIEF COMPLAINT: plantations HPI: Patient is a 73-year-old female who presents to the ER for palpitations. Patient can feel her heart racing which started on 6 AM. She denies any headache or change in vision. No chest pain or shortness of breath. No nausea, vomiting, or diarrhea. No dysuria, urgency, or frequency. No other exacerbating or remitting factors. Patient denies all other complaints at this time. ADDITIONAL HISTORY OBTAINED: Per HPI Chronic Medical/Social Conditions Affecting Care: Per HPI PAST MEDICAL HISTORY:See Below PAST SURGICAL HISTORY:See Below FAMILY HISTORY:See Below SOCIAL HISTORY:See Below HOME MEDICATIONS:See Below ALLERGIES:See Below VITALS:See Below PHYSICAL EXAMINATION: GENERAL: Sitting up in bed, alert, well appearing, well nourished, no distress, non-toxic EYE EXAM: normal conjunctiva. OROPHARYNX: no exudate, no erythema, lips, buccal mucosa, and tongue normal and mucous membranes are moist NECK: supple, no nuchal rigidity, no adenopathy, non-tender LUNGS: Clear to auscultation. Normal chest wall mechanics HEART: Tachycardic and regular, S1 normal and S2 normal ABDOMEN: abdomen soft, non-tender, normo-active bowel sounds, no masses, no rebound or guarding. UPPER EXTREMITIES: upper extremities are grossly normal. LOWER EXTREMITIES: No pitting edema. NEURO EXAM: Normal sensorium, cranial nerves II-XII grossly intact, normal speech, no gross weakness of arms, no gross weakness of legs. MEDICAL DECISION MAKING: Patient is a 73-year-old female who presents ER for above-stated complaint. IV was established blood work was obtained. External records were reviewed. Patient was found to be A-fib with RVR. Heart rate was in the 140s. Labs show no significant leukocytosis or anemia. BMP along with LFTs bilirubin and lipase was unremarkable. Troponin was negative. TSH unremarkable. Patient was given IV fluids. She was given 2 separate boluses of Cardizem and placed on a Cardizem drip which was titrated up to 10. Heart rate trended down to 110s-120. Patient family were updated at bedside. Discussed case with hospitalist patient was admitted for further work-up External Records Reviewed: External records reviewed with recent admission at the end of February to the [facility] for A-fib with RVR Consults/Care Managements Discussions: Per MDM Triage Nursing notes reviewed. Limited review of prior medical records performed Vital Signs: reviewed and remarkable for HTN and tachy Differential diagnosis: Cardiac ischemia, aortic dissection, pulmonary embolism, pneumothorax, pneumonia, pericarditis, myocarditis, esophageal rupture, GERD, cholecystitis, pancreatitis, musculoskeletal, as well as other pathologies. ER treatment provided: See below Diagnostics interpreted by me include EKG and cardiac monitoring as listed below: -Cardiac Monitoring: An order was placed for continuous cardiac monitoring. The monitor shows a rate of 145 with Afib rhythm. -ECG: A-fib rate 135 Normal axis No PVCs QTc 460 -Laboratory studies:Interpreted by me as stated above in MDM and shown below. Imaging studies: Xrays: As interpreted by me: Portable AP upright 1 view of the chest shows no focal infiltrate CTs show: none Procedures:none Critical Care: I have personally spent 31 minutes of critical care time in the direct management of this patient. This includes bedside care, interpretation of diagnostic studies, and testing, discussion with consultants, patient, and family members, and other required patient management activities. This 31 minutes is in excess of all separately billable procedures. Past Med/Surg History Medical History (Updated 04/23/23 @ 13:55 by Jamie Cardozo DO) Atrial flutter with rapid ventricular response Social History Smoking Status: Never smoker Second Hand Exposure: No; Do You Dip or Chew Tobacco: No; Hx Alcohol Use: No Hx Substance Use: No Preferred Language: Comoran Communication Ability: Effective Carrot Harvester Required: No Beliefs That Will Affect Care: None Current Living Situation: Spouse Feels Safe at Home: Yes Assistive Devices: Glasses Allergies Allergies Allergy/AdvReac Type Severity Reaction Status Date / Time No Known Allergies Allergy Unverified 04/23/23 12:19 Home Meds Home Medications Medication Instructions Recorded Confirmed allopurinol 300 mg tablet 300 mg PO QAM 03/20/23 04/23/23 aspirin 81 mg tablet,delayed 81 mg PO DAILY 03/20/23 04/23/23 release atorvastatin 80 mg tablet 80 mg PO QAM 03/20/23 04/23/23 cholecalciferol (vitamin D3) 50 50 mcg PO DAILY 10/29/23 12/02/23 mcg (2,000 unit) tablet lisinopril 10 mg tablet 10 mg PO QAM 04/23/23 04/23/23 Previous Rx's Medication Instructions Recorded apixaban 5 mg tablet (Eliquis) 5 mg PO BID #60 tabs 03/21/23 metoprolol succinate 50 mg 50 mg PO BID #60 tabs 03/21/23 tablet,extended release 24 hr Results & Data (ED) Vital Signs Vital Signs - 24 hr 04/23/23 10:09 04/23/23 10:18 04/23/23 10:29 Temperature 36.0 C L Temperature Source Temporal Artery Scan Pulse Rate 139 H 131 H 130 H Pulse Rate from SpO2 Sensor Respiratory Rate 20 20 21 Respiratory Effort / Characteristics Non-Labored Respiratory Depth Normal Blood Pressure 143/88 H Blood Pressure Mean 106 Pulse Oximetry 100 Oxygen Delivery Method Room Air Sepsis Recent Fever Within 48 Hours No Sepsis New/Unexplained Change in Mental Status N/A Sepsis Action Taken by Nursing No Action Required 04/23/23 10:29 04/23/23 10:30 04/23/23 10:30 Temperature Temperature Source Pulse Rate 134 H Pulse Rate from SpO2 Sensor Respiratory Rate 19 Respiratory Effort / Characteristics Respiratory Depth Blood Pressure 150/100 H 162/121 H Blood Pressure Mean 109 136 Pulse Oximetry Oxygen Delivery Method Sepsis Recent Fever Within 48 Hours Sepsis New/Unexplained Change in Mental Status Sepsis Action Taken by Nursing 04/23/23 10:34 04/23/23 10:34 04/23/23 10:43 Temperature Temperature Source Pulse Rate 131 H 152 H Pulse Rate from SpO2 Sensor Respiratory Rate 17 Respiratory Effort / Characteristics Respiratory Depth Blood Pressure 145/93 H Blood Pressure Mean 103 Pulse Oximetry Oxygen Delivery Method Sepsis Recent Fever Within 48 Hours Sepsis New/Unexplained Change in Mental Status Sepsis Action Taken by Nursing 04/23/23 10:45 04/23/23 10:45 04/23/23 11:00 Temperature Temperature Source Pulse Rate 130 H 136 H Pulse Rate from SpO2 Sensor 128 H 138 H Respiratory Rate 12 24 Respiratory Effort / Characteristics Respiratory Depth Blood Pressure 157/97 H Blood Pressure Mean 112 Pulse Oximetry 99 97 Oxygen Delivery Method Sepsis Recent Fever Within 48 Hours Sepsis New/Unexplained Change in Mental Status Sepsis Action Taken by Nursing 04/23/23 11:01 04/23/23 11:01 04/23/23 11:02 Temperature Temperature Source Pulse Rate 144 H 135 H Pulse Rate from SpO2 Sensor 137 H 135 H Respiratory Rate 34 H 23 Respiratory Effort / Characteristics Respiratory Depth Blood Pressure Blood Pressure Mean 124 Pulse Oximetry 94 98 Oxygen Delivery Method Sepsis Recent Fever Within 48 Hours Sepsis New/Unexplained Change in Mental Status Sepsis Action Taken by Nursing 04/23/23 11:02 04/23/23 11:15 04/23/23 11:15 Temperature Temperature Source Pulse Rate 134 H Pulse Rate from SpO2 Sensor 129 H Respiratory Rate 14 Respiratory Effort / Characteristics Respiratory Depth Blood Pressure 166/107 H 156/98 H Blood Pressure Mean 129 111 Pulse Oximetry 99 Oxygen Delivery Method Sepsis Recent Fever Within 48 Hours Sepsis New/Unexplained Change in Mental Status Sepsis Action Taken by Nursing 04/23/23 11:30 04/23/23 11:30 04/23/23 11:45 Temperature Temperature Source Pulse Rate 123 H 137 H Pulse Rate from SpO2 Sensor 131 H 139 H Respiratory Rate 16 17 Respiratory Effort / Characteristics Respiratory Depth Blood Pressure 153/109 H Blood Pressure Mean 112 Pulse Oximetry 98 99 Oxygen Delivery Method Sepsis Recent Fever Within 48 Hours Sepsis New/Unexplained Change in Mental Status Sepsis Action Taken by Nursing 04/23/23 11:45 04/23/23 12:24 04/23/23 12:30 Temperature Temperature Source Pulse Rate 130 H 135 H Pulse Rate from SpO2 Sensor 128 H 134 H Respiratory Rate 16 13 Respiratory Effort / Characteristics Respiratory Depth Blood Pressure 144/95 H 105/71 119/80 Blood Pressure Mean 100 82 93 Pulse Oximetry 98 98 Oxygen Delivery Method Sepsis Recent Fever Within 48 Hours Sepsis New/Unexplained Change in Mental Status Sepsis Action Taken by Nursing 04/23/23 12:50 04/23/23 13:10 04/23/23 13:31 Temperature Temperature Source Pulse Rate 126 H 119 H Pulse Rate from SpO2 Sensor 132 H 124 H Respiratory Rate 18 15 Respiratory Effort / Characteristics Respiratory Depth Blood Pressure 105/70 105/70 Blood Pressure Mean 81 81 Pulse Oximetry 96 95 96 Oxygen Delivery Method Room Air Sepsis Recent Fever Within 48 Hours Sepsis New/Unexplained Change in Mental Status Sepsis Action Taken by Nursing Laboratory Data 04/23/23 10:26 04/23/23 10:56 Lab Results 04/23/23 04/23/23 Range/Units 10:26 10:56 WBC 9.00 (4.8-10.8) K/ul RBC 4.20 (4.20-5.40) M/uL Hgb 13.4 (12.0-16.0) g/dl Hct 39.6 (37.0-47.0) % MCV 94.3 (80.0-100.0) fL MCH 31.9 (25.0-34.0) pg MCHC 33.8 (32.0-36.0) g/dL RDW Std Deviation 46.0 (36.4-46.3) fL RDW Coeff of Rizwan 13.2 (11.5-14.5) % Plt Count 213 (130-400) K/uL MPV 12.3 (9.4-12.4) fL Immature Gran % (Auto) 0.1 % Neut % (Auto) 57.9 % Lymph % (Auto) 30.3 % Alfalfa % (Auto) 7.1 % Eos % (Auto) 3.9 % Baso % (Auto) 0.7 % Neut # (Auto) 5.21 (1.40-6.50) K/uL Lymph # (Auto) 2.73 (1.20-3.40) K/uL Alfalfa # (Auto) 0.64 H (0.11-0.59) K/uL Eos # (Auto) 0.35 (0.00-0.50) K/uL Baso # (Auto) 0.06 (0.00-0.20) K/uL Immature Gran # (Auto) 0.01 (0.01-0.20) K/uL Sodium Cancelled 140 Potassium Cancelled 3.7 Chloride Cancelled 107 Carbon Dioxide Cancelled 24 Anion Gap Cancelled 9 BUN Cancelled 21 Creatinine Cancelled 0.99 Est Cr Clr Drug Dosing Cancelled 50.9 Est GFR ( Amer) Cancelled 65.1 Est GFR (Non-Af Amer) Cancelled 56.1 BUN/Creatinine Ratio Cancelled 21.2 H Glucose Cancelled 148 H Calcium Cancelled 9.2 Total Bilirubin Cancelled 0.7 AST Cancelled 24 ALT Cancelled 25 Alkaline Phosphatase Cancelled 68 Troponin I High Sens 7.6 (0-14) pg/ml Total Protein Cancelled 7.7 Albumin Cancelled 4.4 Globulin Cancelled 3.3 Albumin/Globulin Ratio Cancelled 1.3 Lipase Cancelled 24 Administered Medications Diltiazem HCl 125 mg/ Dextrose 125 mls @ 5 mls/hr IV .Q24H BRIGHT; Protocol Stop: 05/23/23 11:14 Last Titration: 04/23/23 12:37 Dose: 5 mg/hr, 5 mls/hr Documented By: RODRICK Co-signed By: MATT Admin: 04/23/23 11:41 Dose: 5 mg/hr, 5 mls/hr Documented By: LUIS DANIELW Co-signed By: GRISEL Discontinued Medications Diltiazem HCl (Diltiazem Hcl 5 Mg/Ml 5 Ml Vial) 10 mg IV NOW STA Stop: 04/23/23 10:23 Last Admin: 04/23/23 10:30 Dose: 10 mg Documented By: NDW Co-signed By: GRISEL Diltiazem HCl (Diltiazem Hcl 5 Mg/Ml 5 Ml Vial) 10 mg IV NOW STA Stop: 04/23/23 11:32 Last Admin: 04/23/23 11:40 Dose: 10 mg Documented By: CHOLO Co-signed By: GRISEL Sodium Chloride (Nss) 1,000 mls @ 999 mls/hr IV .Q1H1M ONE Stop: 04/23/23 11:22 Last Infusion: 04/23/23 11:43 Dose: Infused Documented By: LUIS DANIELW Admin: 04/23/23 10:32 Dose: 999 mls/hr Documented By: CHOLO Miscellaneous (Stat Iv Infusion Titration Per Protocol) 1 each N/A NOW STA Stop: 04/23/23 11:12 Last Admin: 04/23/23 12:13 Dose: Not Given Documented By: RODRICK Imaging Data Radiologist's Impression: Chest X-Ray 04/23/23 10:18 XR chest 1V portable CLINICAL HISTORY: Chest pain, nonspecific COMPARISON STUDY: Chest radiograph March 20, 2023. FINDINGS: Lung volumes are normal. Lungs are clear. There is no pneumothorax or pleural effusion. Mild cardio may be. Mediastinal contours are normal. There is no evidence for pulmonary edema. Indeterminate 2.3 cm radiodensity projects over the mid abdomen. IMPRESSION: No acute cardiopulmonary findings. ACT 112: Negative or not required by law. Electronically signed by: Bruce Roberts M.D. 04/23/2023 10:44 AM Discharge Plan Visit Data Chief Complaint: Arrhythmia/Palpitations Stated Complaint: ARRHYTHMIA ED Provider: Jamie Cardozo Discharge Problem: Atrial fibrillation with rapid ventricular response Forms Stand Alone Forms: [facility] Prescriptions Prescriptions: No Action atorvastatin 80 mg tablet 80 mg PO QAM aspirin 81 mg Tablet,Delayed Release (Dr/Ec) 81 mg PO DAILY allopurinol 300 mg tablet 300 mg PO QAM cholecalciferol (vitamin D3) 50 mcg (2,000 unit) Tablet 50 mcg PO DAILY Eliquis 5 mg Tablet 5 mg PO BID Qty: 60 0RF metoprolol succinate 50 mg Tablet Extended Release 24 Hr 50 mg PO BID Qty: 60 0RF lisinopril 10 mg tablet 10 mg PO QAM Referrals Referrals: Jose Michael MD [Primary Care Provider] -
--- NOTE | 2023-04-23 10:45 | XRay Report ---
XR chest 1V portable CLINICAL HISTORY: Chest pain, nonspecific COMPARISON STUDY: Chest radiograph March 20, 2023. FINDINGS: Lung volumes are normal. Lungs are clear. There is no pneumothorax or pleural effusion. Mil d cardio may be. Mediastinal contours are normal. There is no evidence for pulmonary edema. Indetermi riley 2.3 cm radiodensity projects over the mid abdomen. IMPRESSION: No acute cardiopulmonary findings. ACT 112: Negative or not required by law. Electronically signed by: Bruce Roberts M.D. 04/23/2023 10:44 AM
[2023-04-23] MEDS ORDERED: STAT IV Infusion **Titration per Protocol STA ×2 (11:11→17:06)
[2023-04-23] MEDS ORDERED: dilTIAZem HCL 125 MG in DEXTROSE 5% 100 ML IV SCH (11:15)
[2023-04-23 11:34] LABS: Basophils # (auto) 0.06 K/uL (0.00-0.20); Basophils % (auto) 0.7 %; Eosinophils # (auto) 0.35 K/uL (0.00-0.50); Eosinophils % (auto) 3.9 %; Hematocrit (blood only) 39.6 % (37.0-47.0); Hemoglobin 13.4 g/dl (12.0-16.0); Immature Granulocytes # (auto) 0.01 K/uL (0.01-0.20); Immature Granulocytes % (auto) 0.1 %; Lymphocytes # (auto) 2.73 K/uL (1.20-3.40); Lymphocytes % (auto) 30.3 %; Mean Corpuscular Hemoglobin 31.9 pg (25.0-34.0); Mean Corpuscular Hgb Conc 33.8 g/dL (32.0-36.0); Mean Corpuscular Volume 94.3 fL (80.0-100.0); Mean Platelet Volume 12.3 fL (9.4-12.4); Monocytes # (auto) 0.64 K/uL (0.11-0.59); Monocytes % (auto) 7.1 %; Neutrophils # (auto) 5.21 K/uL (1.40-6.50); Neutrophils % (auto) 57.9 %; Platelet Count 213 K/uL (130-400); RDW Coefficient of Variation 13.2 % (11.5-14.5)
[2023-04-23 12:12] LABS: Albumin Globulin Ratio 1.3 (0.9-2); Albumin Level 4.4 gm/dl (3.4-5.0); BUN Creatinine Ratio 21.2 (10-20); Bilirubin,Total 0.7 mg/dl (0.2-1.0); Calcium 9.2 mg/dl (8.6-10.3); Creatinine Clr Calc Pharmacy 50.9 ml/min; Est GFR (African American) 65.1 ml/min; Est GFR (Non-African American) 56.1 ml/min; Globulin 3.3 gm/dl (2.5-4.0); Potassium 3.7 mmol/L (3.5-5.1); Total Protein 7.7 gm/dl (6.0-8.3)
--- NOTE | 2023-04-23 12:35 | Electrocardiogram Report ---
Test Reason : Blood Pressure : / mmHG Vent. Rate : 135 BPM Atrial Rate : 270 BPM P-R Int : 000 ms QRS Dur : 070 ms QT Int : 308 ms P-R-T Axes : 000 -02 -83 degrees QTc Int : 462 ms Poor data quality, interpretation may be adversely affected Possible Atrial flutter with variable A-V block with premature ventricular or aberrantly conducted co mplexes Nonspecific ST and T wave abnormality Abnormal ECG When compared with ECG of 21-MAR-2023 05:45, Atrial flutter has replaced Sinus rhythm Vent. rate has increased BY [address] now depressed in Inferior leads Nonspecific T wave abnormality, worse in Inferior leads Confirmed by Anderson Hirsch ([id number]) on 04/23/2023 12:35:20 PM Referred By: REFERRED SELF Confirmed By:Anderson Hirsch
--- NOTE | 2023-04-23 12:40 | History & Physical Report ---
Date of Service April 23, 2023 Assessment & Plan (1) Atrial fibrillation with rapid ventricular response: Plan: Rapid atrial fibrillation with diltiazem given in the ER. Will continue oral metoprolol and Eliquis per home regimen. Cardiac consult. No clear triggers such as recent UTI or other infection, no electrolyte abnormalities or evidence of hyperthyroidism. Chest x-ray is clear, no evidence of ACS. Nasal swab to rule out COVID flu and RSV given the season and history of "allergies". Transfer to PCU. (2) Stage 3a chronic kidney disease (CKD): Plan: Chronic, stable. Creatinine at baseline. (3) DMII (diabetes mellitus, type 2): Plan: Chronic, stable. Hemoglobin A1c reflects good control as of last month. Continue diet modifications. (4) HTN (hypertension): Plan: Chronic, stable. Blood pressure is at goal. Continue lisinopril 10 mg daily.. (5) Hyperlipidemia: Plan: Chronic, stable. Continue atorvastatin per home regimen. (6) Gout: Plan: Chronic, stable. Continue allopurinol per home regimen. DVT prophylaxis-Eliquis Full code Disposition-PCU I spent a total [id number] coordinating, documenting, and providing care for this patient excluding time spent in the performance of separately billed services Dusty Rodriguez DO [facility] Hospitalist History of Present Illness Chief Complaint: arrhythmia /palpitations Primary Care Provider: Jose Michael MD 73-year-old female presents with symptomatic palpitations since 6:00 this morning. She reports waking up around 4 AM and having 1 episode of loose stool and fell back asleep in her recliner. She jerked awake around 6 AM and felt the palpitations. She denied any chest pain shortness of breath but is uncomfortable with the palpitations and is anxious. She was first aware of atrial flutter during last admission approximately 1 month ago when she was put on Eliquis. She is also on metoprolol 50 twice daily which she did not take this morning. On arrival to the ER she was placed on a diltiazem drip after a 10 mg bolus and she remains tachycardic with a heart rate in the 120s. She is a very anxious person but does not take medications for anxiety. She is reluctant to stay in the hospital overnight but understands the importance. She denies any caffeine use, nicotine use, alcohol use, or other stimulant use. She denies any recent infections but states she has allergies "chronically". She denies any recent illnesses, urinary tract symptoms, or other respiratory symptoms. She does report being around a young child who was sick recently but does not feel that she came down with anything herself. Chest x-ray is clear, lab review shows no significant abnormalities, TSH is normal. Her EKG today reveals atrial flutter with variable A-V block with premature ventricular complexes and a rate of 135 bpm. Recent echocardiogram performed 1 month ago reveals EF of 60 to 65% with grade 2 diastolic dysfunction. Estimated pulmonary systolic pressure is 45 mmHg. Allergies Allergy/AdvReac Type Severity Reaction Status Date / Time baclofen AdvReac Unknown Tachycardia Verified 04/23/23 14:46 Home Medications Medication Instructions Recorded Confirmed Type allopurinol 300 mg tablet 300 mg PO QAM 03/20/23 04/23/23 History aspirin 81 mg tablet,delayed 81 mg PO DAILY 03/20/23 04/23/23 History release atorvastatin 80 mg tablet 80 mg PO QAM 03/20/23 04/23/23 History cholecalciferol (vitamin D3) 50 50 mcg PO DAILY 03/20/23 04/23/23 History mcg (2,000 unit) tablet apixaban 5 mg tablet (Eliquis) 5 mg PO BID #60 tabs 03/21/23 04/23/23 Rx metoprolol succinate 50 mg 50 mg PO BID #60 tabs 03/21/23 04/23/23 Rx tablet,extended release 24 hr lisinopril 10 mg tablet 10 mg PO QAM 04/23/23 04/23/23 History Past Med/Surg History Medical History Chronic anxiety Stage 3a chronic kidney disease (CKD) HTN (hypertension) PAF (paroxysmal atrial fibrillation) Hyperlipidemia Gout DMII (diabetes mellitus, type 2) SVT (supraventricular tachycardia) Atrial flutter with rapid ventricular response Surgical History No pertinent past surgical history Family History Mother Heart disease Father Heart disease Social History Smoking Status: Never smoker Second Hand Exposure: No; Do You Dip or Chew Tobacco: No; Hx Alcohol Use: No Hx Substance Use: No Preferred Language: Uzbek Communication Ability: Effective Process Coordinator Required: No Beliefs That Will Affect Care: None Current Living Situation: Spouse Feels Safe at Home: Yes Assistive Devices: Glasses Physical Exam Physical Exam: CONSTITUTIONAL: WNWD, vitals as above, NAD but appears anxious EYES: normal conjunctivae, no scleral icterus ENT: external ear and nose normal, MMM, poor dentition NECK: trachea midline RESPIRATORY: clear to auscultation bilaterally, no crackles, rales or wheezes, normal respiratory effort CARDIOVASCULAR: achy rate, irregular rhythm, S1 and 2 heard without murmurs, gallops or rubs, no JVD, no peripheral edema CHEST: inspection of chest was normal GASTROINTESTINAL: normal bowel sounds, soft, nontender, ND, no guarding MUSCULOSKELETAL: strength 5/5 throughout, head is normocephalic and atraumatic SKIN: warm and dry NEUROLOGIC: CN 2-12 grossly intact, no sensory deficit, normal cognition, normal speech, no tremor PSYCHIATRIC: alert cooperative and oriented to person, place and time. Euthymic mood, makes good eye contact, language grossly intact, recent and remote memory grossly intact. Results & Data Results & Data Vital Signs (Past 12 Hours) Vital Signs Temp Pulse Resp BP Pulse Ox O2 Del Method 04/23/23 12:30 135 H 13 119/80 98 04/23/23 12:24 130 H 16 105/71 98 04/23/23 11:45 144/95 H 04/23/23 11:45 137 H 17 99 04/23/23 11:30 123 H 16 98 04/23/23 11:30 153/109 H 04/23/23 11:15 156/98 H 04/23/23 11:15 134 H 14 99 04/23/23 11:02 166/107 H 04/23/23 11:02 135 H 23 98 04/23/23 11:01 144 H 34 H 94 04/23/23 11:00 136 H 24 97 04/23/23 10:45 157/97 H 04/23/23 10:45 130 H 12 99 04/23/23 10:43 152 H 04/23/23 10:34 145/93 H 04/23/23 10:34 131 H 17 04/23/23 10:30 134 H 19 04/23/23 10:30 162/121 H 04/23/23 10:29 150/100 H 04/23/23 10:29 130 H 21 04/23/23 10:18 131 H 20 04/23/23 10:09 36.0 C L 139 H 20 143/88 H 100 Room Air Laboratory Results Short CBC 04/23/23 Range/Units 10:26 WBC 9.00 (4.8-10.8) K/ul Hgb 13.4 (12.0-16.0) g/dl Hct 39.6 (37.0-47.0) % Plt Count 213 (130-400) K/uL BMP 04/23/23 04/23/23 10:26 10:56 Sodium Cancelled 140 Potassium Cancelled 3.7 Chloride Cancelled 107 Carbon Dioxide Cancelled 24 BUN Cancelled 21 Creatinine Cancelled 0.99 Glucose Cancelled 148 H Calcium Cancelled 9.2 Liver Function 04/23/23 04/23/23 Range/Units 10:26 10:56 Total Bilirubin Cancelled 0.7 AST Cancelled 24 ALT Cancelled 25 Alkaline Phosphatase Cancelled 68 Albumin Cancelled 4.4 Diagnostic Findings Chest X-Ray 04/23/23 10:18 XR chest 1V portable CLINICAL HISTORY: Chest pain, nonspecific COMPARISON STUDY: Chest radiograph March 20, 2023. FINDINGS: Lung volumes are normal. Lungs are clear. There is no pneumothorax or pleural effusion. Mild cardio may be. Mediastinal contours are normal. There is no evidence for pulmonary edema. Indeterminate 2.3 cm radiodensity projects over the mid abdomen. IMPRESSION: No acute cardiopulmonary findings. ACT 112: Negative or not required by law. Electronically signed by: Bruce Roberts M.D. 04/23/2023 10:44 AM Medications Administered Current Inpatient Medications Allopurinol (Allopurinol 300 Mg Tab) 300 mg PO QAM BRIGHT Stop: 05/24/23 08:59 Apixaban (Apixaban 5 Mg Tablet) 5 mg PO BID BRIGHT Stop: 05/23/23 20:59 Aspirin (Aspirin 81 Mg Ectab) 81 mg PO DAILY BRIGHT Stop: 05/24/23 08:59 Atorvastatin Calcium (Atorvastatin 40 Mg Tab) 80 mg PO QAM BRIGHT Stop: 05/24/23 08:59 Diltiazem HCl 125 mg/ Dextrose 125 mls @ 5 mls/hr IV .Q24H BRIGHT; Protocol Stop: 05/23/23 11:14 Last Titration: 04/23/23 12:37 Dose: 5 mg/hr, 5 mls/hr Sodium Chloride (Nss) 1,000 mls @ 999 mls/hr IV .Q1H1M ONE Stop: 04/23/23 14:55 Last Admin: 04/23/23 14:07 Dose: 999 mls/hr Lisinopril (Lisinopril 10 Mg Tab) 10 mg PO QAM [facility] Stop: 05/24/23 08:59 Non-Formulary Medication (Cholecalciferol (Vitamin D3)) 50 mcg PO DAILY [facility] Stop: 05/24/23 08:59 (3) DMII (diabetes mellitus, type 2) Diabetes mellitus local company intermodal truck driver insulin use: without local company intermodal truck driver use Diabetes mellitus complication status: without complication Qualified Code(s): E11.9 - Type 2 diabetes mellitus without complications (4) HTN (hypertension) Hypertension type: unspecified Qualified Code(s): I10 - Essential (primary) hypertension (5) Hyperlipidemia Hyperlipidemia type: unspecified Qualified Code(s): E78.5 - Hyperlipidemia, unspecified (6) Gout Gout site: unspecified site Gout etiology: unspecified cause Chronicity: chronic
[2023-04-23 14:09] LABS: Thyroid Stimulating Hormone 0.983 uIu/ml (0.300-4.500)
[2023-04-23] MEDS ORDERED: POLYETHYLENE (MIRALAX) 17 GM PACK PO PRN (14:50)
[2023-04-23] MEDS ORDERED: ACETAMINOPHEN 325 MG TAB PO PRN (14:50)
[2023-04-23] MEDS ORDERED: diphenhydrAMINE 50 MG/ML VIAL IV STA (15:30)
[2023-04-23 15:35] LABS: Influenza A virus by PCR Negative (Neg); Influenza B virus by PCR Negative (Neg); RSV by PCR Negative (Neg); SARS CoV2 RNA(COVID-19) Ceph NEGATIVE (Negative)
[2023-04-23] MEDS ORDERED: diphenhydrAMINE 50 MG/ML VIAL ONE (15:40)
[2023-04-23] MEDS ORDERED: METOPROLOL TARTRATE 1 MG/ML VIAL IV STA (15:43)
[2023-04-23] MEDS: METOPROLOL SUCC 50MG EXT REL TAB PO SCH ×2 (16:15→22:04)
[2023-04-23] MEDS: APIXABAN 5 MG TABLET PO SCH ×2 (16:15→22:04)
[2023-04-23] MEDS: lisinopril 10 MG TAB PO SCH (16:15)
[2023-04-23] MEDS: allopurinoL 300 MG TAB PO SCH (16:16)
[2023-04-23] MEDS: ATORVASTATIN 40 MG TAB PO SCH (16:16)
[2023-04-23] MEDS: ASPIRIN 81 MG ECTAB PO SCH (16:17)
[2023-04-23] MEDS ORDERED: 0.2 MICRON FILTER SET 1 EACH IV STA (17:06)
[2023-04-23] MEDS ORDERED: AMIODARONE IV BOLUS & DRIP IV STA (17:06)
[2023-04-23] MEDS ORDERED: AMIODARONE / D5W 150 MG/100 ML BAG IV STA (17:06)
[2023-04-23] MEDS ORDERED: AMIODARONE / D5W 360 MG/200 ML BAG IV ONE (17:16)
[2023-04-23] MEDS ORDERED: APIXABAN 5 MG TABLET PO SCH (21:00)
[2023-04-23] MEDS ORDERED: AMIODARONE / D5W 360 MG/200 ML BAG IV SCH (23:15)
[2023-04-24 06:09] LABS: Hematocrit (blood only) 32.4 % (37.0-47.0); Hemoglobin 11.2 g/dl (12.0-16.0); Mean Corpuscular Hemoglobin 32.7 pg (25.0-34.0); Mean Corpuscular Hgb Conc 34.6 g/dL (32.0-36.0); Mean Corpuscular Volume 94.7 fL (80.0-100.0); Mean Platelet Volume 12.1 fL (9.4-12.4); Platelet Count 181 K/uL (130-400); RDW Coefficient of Variation 13.5 % (11.5-14.5); RDW Standard Deviation 46.8 fL (36.4-46.3); Red Blood Count 3.42 M/uL (4.20-5.40); White Blood Count 6.54 K/ul (4.8-10.8)
[2023-04-24 06:20] LABS: BUN Creatinine Ratio 20.4 (10-20); Calcium 8.4 mg/dl (8.6-10.3); Creatinine Clr Calc Pharmacy 51.4 ml/min; Est GFR (African American) 65.9 ml/min; Est GFR (Non-African American) 56.8 ml/min; Magnesium 1.8 mg/dl (1.7-2.4); Phosphorus 3.1 mg/dl (2.5-4.9); Potassium 3.7 mmol/L (3.5-5.1)
[2023-04-24] MEDS: APIXABAN 5 MG TABLET PO SCH (08:10)
[2023-04-24] MEDS: METOPROLOL SUCC 50MG EXT REL TAB PO SCH (08:10)
[2023-04-24] MEDS: ATORVASTATIN 40 MG TAB PO SCH (08:10)
[2023-04-24] MEDS: allopurinoL 300 MG TAB PO SCH (08:10)
[2023-04-24] MEDS: lisinopril 10 MG TAB PO SCH (08:11)
[2023-04-24] MEDS ORDERED: allopurinoL 300 MG TAB PO SCH (09:00)
[2023-04-24] MEDS ORDERED: lisinopril 10 MG TAB PO SCH (09:00)
[2023-04-24] MEDS ORDERED: ASPIRIN 81 MG ECTAB PO SCH (09:00)
[2023-04-24] MEDS ORDERED: ATORVASTATIN 40 MG TAB PO SCH (09:00)
[2023-04-24] MEDS ORDERED: CHOLECALCIFEROL 1,000 UNITS 25 MCG TAB PO SCH (09:00)
--- NOTE | 2023-04-24 09:07 | Hospitalist Progress Note ---
Date of Service April 24, 2023 Assessment & Plan (1) Atrial fibrillation with rapid ventricular response: Plan: Rapid atrial fibrillation with diltiazem given in the ER. Will continue oral metoprolol and Eliquis per home regimen. Cardiac consult. No clear triggers such as recent UTI or other infection, no electrolyte abnormalities or evidence of hyperthyroidism. Chest x-ray is clear, no evidence of ACS. Nasal swab to rule out COVID flu and RSV given the season and history of "allergies". Transfer to PCU. (2) Stage 3a chronic kidney disease (CKD): Plan: Chronic, stable. Creatinine at baseline. (3) DMII (diabetes mellitus, type 2): Plan: Chronic, stable. Hemoglobin A1c reflects good control as of last month. Continue diet modifications. (4) HTN (hypertension): Plan: Chronic, stable. Blood pressure is at goal. Continue lisinopril 10 mg daily.. (5) Hyperlipidemia: Plan: Chronic, stable. Continue atorvastatin per home regimen. (6) Gout: Plan: Chronic, stable. Continue allopurinol per home regimen. DVT prophylaxis-Eliquis Full code Disposition-PCU I spent a total [id number] coordinating, documenting, and providing care for this patient excluding time spent in the performance of separately billed services Dusty Rodriguez DO [facility] and Anticipated Discharge Date Admission Date: April 23, 2023 Physical Exam Physical Exam: CONSTITUTIONAL: WNWD, vitals as above, NAD but appears anxious EYES: normal conjunctivae, no scleral icterus ENT: external ear and nose normal, MMM, poor dentition NECK: trachea midline RESPIRATORY: clear to auscultation bilaterally, no crackles, rales or wheezes, normal respiratory effort CARDIOVASCULAR: achy rate, irregular rhythm, S1 and 2 heard without murmurs, gallops or rubs, no JVD, no peripheral edema CHEST: inspection of chest was normal GASTROINTESTINAL: normal bowel sounds, soft, nontender, ND, no guarding MUSCULOSKELETAL: strength 5/5 throughout, head is normocephalic and atraumatic SKIN: warm and dry NEUROLOGIC: CN 2-12 grossly intact, no sensory deficit, normal cognition, normal speech, no tremor PSYCHIATRIC: alert cooperative and oriented to person, place and time. Euthymic mood, makes good eye contact, language grossly intact, recent and remote memory grossly intact. Results & Data Results & Data Vital Signs (Past 12 Hours) Vital Signs Temp Pulse Pulse Resp BP Pulse Ox O2 Del Method 04/24/23 07:38 36.4 C L 51 L 18 134/78 98 Room Air 04/24/23 03:20 36.4 C L 50 L 18 128/72 97 Room Air 04/24/23 00:10 62 04/23/23 23:41 62 04/23/23 22:20 36.6 C 57 L 18 118/71 95 Room Air 04/23/23 21:36 36.6 C 71 18 160/77 H 96 Room Air Laboratory Results Short CBC 04/23/23 04/24/23 Range/Units 10:26 04:57 WBC 9.00 6.54 (4.8-10.8) K/ul Hgb 13.4 11.2 L (12.0-16.0) g/dl Hct 39.6 32.4 L (37.0-47.0) % Plt Count 213 181 (130-400) K/uL BMP 04/23/23 04/23/23 04/24/23 10:26 10:56 04:57 Sodium Cancelled 140 140 Potassium Cancelled 3.7 3.7 Chloride Cancelled 107 110 H Carbon Dioxide Cancelled 24 23 BUN Cancelled 21 20 Creatinine Cancelled 0.99 0.98 Glucose Cancelled 148 H 101 H Calcium Cancelled 9.2 8.4 L Liver Function 04/23/23 04/23/23 Range/Units 10:26 10:56 Total Bilirubin Cancelled 0.7 AST Cancelled 24 ALT Cancelled 25 Alkaline Phosphatase Cancelled 68 Albumin Cancelled 4.4 Medications Administered Current Inpatient Medications Acetaminophen (Acetaminophen 325 Mg Tab) 650 mg PO Q4H PRN PRN Reason: Pain or Fever Stop: 05/23/23 14:49 Allopurinol (Allopurinol 300 Mg Tab) 300 mg PO QAM [facility] Stop: 05/23/23 14:19 Last Admin: 04/24/23 08:10 Dose: 300 mg Apixaban (Apixaban 5 Mg Tablet) 5 mg PO BID [facility] Stop: 05/23/23 14:19 Last Admin: 04/24/23 08:10 Dose: 5 mg Aspirin (Aspirin 81 Mg Ectab) 81 mg PO DAILY [facility] Stop: 05/23/23 14:19 Last Admin: 04/23/23 16:17 Dose: 81 mg Atorvastatin Calcium (Atorvastatin 40 Mg Tab) 80 mg PO QAM [facility] Stop: 05/23/23 14:19 Last Admin: 04/24/23 08:10 Dose: 80 mg Amiodarone HCl/Dextrose (Nexterone / D5w) 360 mg in 200 mls @ 16.667 mls/hr IV .Q12H [facility] Stop: 05/23/23 23:14 Lisinopril (Lisinopril 10 Mg Tab) 10 mg PO QAM [facility] Stop: 05/23/23 14:19 Last Admin: 04/24/23 08:11 Dose: 10 mg Metoprolol Succinate (Metoprolol Succ 50mg Ext Rel Tab) 50 mg PO BID [facility] Stop: 05/23/23 14:19 Last Admin: 04/24/23 08:10 Dose: 50 mg Polyethylene Glycol (Polyethylene (Miralax) 17 Gm Pack) 17 gm PO DAILY PRN PRN Reason: Constipation Stop: 05/23/23 14:49 Vitamin D (Cholecalciferol 1,000 Units 25 Mcg Tab) 2,000 units PO DAILY [facility] Stop: 05/24/23 08:59 Last Admin: 04/24/23 08:09 Dose: 2,000 units (3) DMII (diabetes mellitus, type 2) Diabetes mellitus intermediate manager insulin use: without intermediate manager use Diabetes mellitus complication status: without complication Qualified Code(s): E11.9 - Type 2 diabetes mellitus without complications (4) HTN (hypertension) Hypertension type: unspecified Qualified Code(s): I10 - Essential (primary) hypertension (5) Hyperlipidemia Hyperlipidemia type: unspecified Qualified Code(s): E78.5 - Hyperlipidemia, unspecified (6) Gout Gout site: unspecified site Gout etiology: unspecified cause Chronicity: chronic
[2023-04-24] MEDS: ASPIRIN 81 MG ECTAB PO SCH (09:24)
--- NOTE | 2023-04-24 13:24 | Electrocardiogram Report ---
Test Reason : Blood Pressure : / mmHG Vent. Rate : 082 BPM Atrial Rate : 082 BPM P-R Int : 152 ms QRS Dur : 086 ms QT Int : 430 ms P-R-T Axes : 000 017 022 degrees QTc Int : 502 ms Normal sinus rhythm Nonspecific T wave abnormality Prolonged QT Abnormal ECG When compared with ECG of 23-APR-2023 10:18, Significant changes have occurred Confirmed by Anderson Hirsch ([id number]) on 04/24/2023 1:24:22 PM Referred By: REFERRED SELF Confirmed By:Anderson Hirsch
--- NOTE | 2023-04-24 13:30 | Electrocardiogram Report ---
Test Reason : Blood Pressure : / mmHG Vent. Rate : 054 BPM Atrial Rate : 054 BPM P-R Int : 166 ms QRS Dur : 076 ms QT Int : 444 ms P-R-T Axes : 037 010 021 degrees QTc Int : 421 ms Sinus bradycardia T wave abnormality, consider anterior ischemia Abnormal ECG When compared with ECG of 24-APR-2023 06:31, (unconfirmed) Vent. rate has decreased BY 28 BPM Inverted T waves have replaced nonspecific T wave abnormality in Anterior leads QT has shortened Confirmed by Anderson Hirsch ([id number]) on 04/24/2023 1:30:46 PM Referred By: REFERRED SELF Confirmed By:Anderson Hirsch
--- NOTE | 2023-04-24 13:33 | Cardiology Consultation ---
Date of Consultation April 24, 2023 Assessment & Plan (1) Paroxysmal atrial fibrillation with rapid ventricular response: (2) HTN (hypertension): (3) Stage 3a chronic kidney disease (CKD): Plan Patient is a 73-year-old female with paroxysmal atrial fibrillation flutter admitted with tachypalpitations and atrial arrhythmias treated with IV amiodarone. Patient with successful conversion to sinus rhythm but with transient bradycardia and QT prolongation EKG now improved Asymptomatic Discussed atrial fibrillation flutter in detail with patient. Patient has scheduled follow-up with cardiology as well as electrophysiology Discussed management including antiarrhythmic therapy. Given QT prolongation with amiodarone would be reluctant to initiate oral regimen at this time. May consider sotalol or Tikosyn in the future Would continue anticoagulation with apixaban and Continue metoprolol succinate as previous Add potassium chloride 10 mill equivalent p.o. daily given hypokalemia on presentation Discussed all options with patient including antiarrhythmic therapy, pulmonary vein isolation ablation in detail Rule out to be discharged with plan follow-up as already scheduled History of Present Illness Reason for Consultation: Paroxysmal atrial fibrillation Attending Physician: Apoorva Rodriguez, History of Present Illness Patient is a 73-year-old female admitted with symptomatic tachypalpitations, atrial fibrillation flutter patient treated with IV amiodarone with subsequent c onversion to sinus rhythm/sinus bradycardia Patient referred for further Ongoing cardiac concerns include 1. Paroxysmal atrial fibrillation flutter/atrial tachycardia 2. Hypertension with grade 2 diastolic LV dysfunction 3. Chronic renal insufficiency, stage IIIa 4. Hyperlipidemia Patient recently hospitalized on 03/20/2023 for similar event and begun on anticoagulation with apixaban Currently asymptomatic since conversion to sinus rhythm. Has chronic anxiety issues which she is concerned about Does not wish to remain in hospital further Amiodarone was successful in converting the rhythm however did result in transient bradycardia as well as QT prolongation No fevers chills or unexplained No bleeding difficulties on chronic anticoagulation Appetite and weight are stable Allergies Allergy/AdvReac Type Severity Reaction Status Date / Time diltiazem Allergy Severe Hives Verified 04/23/23 15:32 baclofen AdvReac Unknown Tachycardia Verified 04/23/23 14:46 Home Medications Medication Instructions Recorded Confirmed Type allopurinol 300 mg tablet 300 mg PO QAM 03/20/23 04/23/23 History aspirin 81 mg tablet,delayed 81 mg PO DAILY 03/20/23 04/23/23 History release atorvastatin 80 mg tablet 80 mg PO QAM 03/20/23 04/23/23 History cholecalciferol (vitamin D3) 50 50 mcg PO DAILY 03/20/23 04/23/23 History mcg (2,000 unit) tablet apixaban 5 mg tablet (Eliquis) 5 mg PO BID #60 tabs 03/21/23 04/23/23 Rx metoprolol succinate 50 mg 50 mg PO BID #60 tabs 03/21/23 04/23/23 Rx tablet,extended release 24 hr lisinopril 10 mg tablet 10 mg PO QAM 04/23/23 04/23/23 History Patient History Medical History Chronic anxiety Stage 3a chronic kidney disease (CKD) HTN (hypertension) PAF (paroxysmal atrial fibrillation) Hyperlipidemia Gout DMII (diabetes mellitus, type 2) SVT (supraventricular tachycardia) Atrial flutter with rapid ventricular response Surgical History No pertinent past surgical history Family History Mother Heart disease Father Heart disease Social History Smoking Status: Never smoker Second Hand Exposure: No; Do You Dip or Chew Tobacco: No; Hx Alcohol Use: No Hx Substance Use: No Preferred Language: Russian Communication Ability: Effective Lab Aid Required: Voice Beliefs That Will Affect Care: None Current Living Situation: Alone Other Information That Helps Us Care for You: No Feels Safe at Home: Yes Safety Concerns: Feels Safe At This Time Assistive Devices: Glasses Physical Exam Constitutional: + obese; no acute distress Eyes: PERRL, conjunctivae normal, anicteric sclerae ENMT: external ear and nose normal, oropharynx normal Neck: trachea midline, no thyromegaly Respiratory: normal respiratory effort, lungs clear to auscultation Cardiovascular: Rate/Rhythm: regular rate and regular rhythm Heart Sounds: normal S1, normal S2 and + abnormal opening sounds; no murmur Vessels: no JVD Extremities: no edema Gastrointestinal (Abdomen): normal bowel sounds, soft, nontender, no hepatosplenomegaly Musculoskeletal: no cyanosis or clubbing, extremities motor strength 5/5 Neurologic: PERRL, EOMI, accommodation nl, no face palsy, no dysarthria Results & Data Vital Signs (Past 12 Hours) Vital Signs Temp Pulse Pulse Resp BP Pulse Ox O2 Del Method 04/24/23 11:25 36.9 C 61 18 142/69 H 98 Room Air 04/24/23 09:42 47 L 04/24/23 07:38 36.4 C L 51 L 18 134/78 98 Room Air 04/24/23 03:20 36.4 C L 50 L 18 128/72 97 Room Air Laboratory Results Laboratory Results - last 24 hr 04/23/23 04/23/23 04/24/23 10:56 14:41 04:57 WBC 6.54 RBC 3.42 L Hgb 11.2 L Hct 32.4 L MCV 94.7 MCH 32.7 MCHC 34.6 RDW Std Deviation 46.8 H RDW Coeff of Rizwan 13.5 Plt Count 181 MPV 12.1 Sodium 140 Potassium 3.7 Chloride 110 H Carbon Dioxide 23 Anion Gap 7 BUN 20 Creatinine 0.98 Est Cr Clr Drug Dosing 51.4 Est GFR ( Amer) 65.9 Est GFR (Non-Af Amer) 56.8 BUN/Creatinine Ratio 20.4 H Glucose 101 H Calcium 8.4 L Phosphorus 3.1 Magnesium 1.8 TSH 0.983 SARS-CoV-2 (PCR) NEGATIVE Influenza Type A (PCR) Negative Influenza Type B (PCR) Negative RSV (RT-PCR) Negative (2) HTN (hypertension) Hypertension type: unspecified Qualified Code(s): I10 - Essential (primary) hypertension
--- NOTE | 2023-04-24 14:28 | Discharge Summary ---
Discharge Summary Date of Service April 24, 2023 Notes For Next Care Provider followup with primary carbon sequestration plant engineer and EP cost consultant for treatment of PAF amiodarone caused QT prolongation in the hospital consider sotalol or tikosyn as options for treatment after amiodarone washout consider outpatient sleep study with pulm htn on echo Medication Changes From Visit NEW potassium 10MEq PO daily Admission HPI Per Admitting Provider 73-year-old female presents with symptomatic palpitations since 6:00 this morning. She reports waking up around 4 AM and having 1 episode of loose stool and fell back asleep in her recliner. She jerked awake around 6 AM and felt the palpitations. She denied any chest pain shortness of breath but is uncomfortable with the palpitations and is anxious. She was first aware of atrial flutter during last admission approximately 1 month ago when she was put on Eliquis. She is also on metoprolol 50 twice daily which she did not take this morning. On arrival to the ER she was placed on a diltiazem drip after a 10 mg bolus and she remains tachycardic with a heart rate in the 120s. She is a very anxious person but does not take medications for anxiety. She is reluctant to stay in the hospital overnight but understands the importance. She denies any caffeine use, nicotine use, alcohol use, or other stimulant use. She denies any recent infections but states she has allergies "chronically". She denies any recent illnesses, urinary tract symptoms, or other respiratory symptoms. She does report being around a young child who was sick recently but does not feel that she came down with anything herself. Chest x-ray is clear, lab review shows no significant abnormalities, TSH is normal. Her EKG today reveals atrial flutter with variable A-V block with premature ventricular complexes and a rate of 135 bpm. Recent echocardiogram performed 1 month ago reveals EF of 60 to 65% with grade 2 diastolic dysfunction. Estimated pulmonary systolic pressure is 45 mmHg. Principal Dx & Hospital Course #1 = Principal Diagnosis (1) Atrial fibrillation with rapid ventricular response: (2) Stage 3a chronic kidney disease (CKD): (3) DMII (diabetes mellitus, type 2): (4) HTN (hypertension): (5) Hyperlipidemia: (6) Gout: (7) Urticaria: (8) Paroxysmal atrial fibrillation with rapid ventricular response: Plan 73-year-old female with known history of A-fib a flutter presented with heart palpitations. Evaluation in the ER revealed she was in ventricular response with a heart rate 130 bpm to 150 bpm. She denies any symptoms of heart failure and there was no clear trigger for her change in rhythm. Chest x-ray was clear lab review revealed no significant abnormalities and TSH was normal. EKG revealed atrial flutter with variable AV block with PVCs at a rate of 135 bpm. Recent echocardiogram performed 1 month ago revealed EF of 60 to 65% with grade 2 diastolic dysfunction. Pulmonary systolic pressure is 45 mmHg. She was given a bolus of diltiazem intravenous of 10 mg and started on a diltiazem drip. Shortly after the drip she developed urticaria on her arm just proximal to the infusing IV site. This was stopped and she was administered Benadryl. She was given 5 mg IV Lopressor without any change in heart rate. She was still uncomfortable and was started on amnio drip with bolus. Shortly after being on the amnio drip she converted to sinus rhythm and became more bradycardic. The amnio drip was stopped. She was continued on Eliquis and cardiology was consulted. She was continued on her home metoprolol succinate 50 mg p.o. twice daily. EKG this morning revealed QT prolongation likely secondary to amiodarone as this resolved with serial EKGs later this afternoon. Patient has a scheduled follow-up with cardiology and with electrophysiology and she is requesting to go home. Cardiology discussed management including antiarrhythmic therapy. Given the proved QT prolongation with amiodarone there was reluctance to initiate any oral regimen at this time. May consider sotalol or Tikosyn in the future. Continuing with anticoagulation with apixaban and rate control with metoprolol was preferred. Will also add potassium chloride 10 mill equivalents p.o. daily given hypokalemia on presentation. At time of discharge she was hemodynamically stable and afebrile and tolerating p.o. She was oxygenating well on room air and mentating and ambulating at baseline. She was discharged in stable condition with close primary care follow-up recommended. Updated Medication List Medication Instructions Recorded Confirmed Type allopurinol 300 mg tablet 300 mg PO QAM 03/20/23 04/23/23 History aspirin 81 mg tablet,delayed 81 mg PO DAILY 03/20/23 04/23/23 History release atorvastatin 80 mg tablet 80 mg PO QAM 03/20/23 04/23/23 History cholecalciferol (vitamin D3) 50 50 mcg PO DAILY 03/20/23 04/23/23 History mcg (2,000 unit) tablet apixaban 5 mg tablet (Eliquis) 5 mg PO BID #60 tabs 03/21/23 04/23/23 Rx metoprolol succinate 50 mg 50 mg PO BID #60 tabs 03/21/23 04/23/23 Rx tablet,extended release 24 hr lisinopril 10 mg tablet 10 mg PO QAM 04/23/23 04/23/23 History potassium chloride 10 mEq 10 meq PO DAILY #30 tabs 04/24/23 Rx tablet,extended release Hospital Stay Data Consultations 04/23/23 11:40 ED Decision to Admit Stat 04/23/23 14:50 Consult Cardiology Routine Pending Results Patient Have Any Pending Studies at Discharge: No Discharge Instructions Given to Patient (Per Discharging Provider) Please take all medications as instructed on discharge list below. Please followup with your primary care provider in 1-2 weeks and you [facility] Concrete Saw Operator as you have already scheduled. It was a pleasure taking care of you! Please call if you have any questions or problems. You can reach a [facility] hospitalist on duty at [facility] 24 hours a day by calling [phone]. Take care of yourself. Apoorva Rodriguez, DO [facility] Hospitalist Total Time Total Time Spent Total Time Spent (In Minutes): 60
== END 2023-04-24 16:28 | disposition home or self-care (01) | DRG 310 ==
LOC: ED 10:01 → EDINP 13:15 → 4W 14:51